=== PATIENT | female | born 1940 | race Caucasian/White ===

== ENCOUNTER 2018-06-02 19:50 | Inpatient (IN) | payer MEDICARE ==
[2018-06-02] MEDS ORDERED: methylPREDNISolone Sodium Succinate 125 MG/2 ML SDV IV ONE (20:06)
[2018-06-02] MEDS ORDERED: Albuterol/Ipratropium 3.0-0.5 MG/3 ML Neb Soln NEB ONE (20:06)
[2018-06-02] MEDS ORDERED: Albuterol 0.083% 2.5 MG/3 ML Neb Soln NEB ONE (20:16)
[2018-06-02] MEDS ORDERED: cefTRIAXone 2 GM Vial IVPUSH ONE (21:23)
--- NOTE | 2018-06-02 21:28 | EDM.PDOC ---
ED HPI GENERAL MEDICAL PROBLEM - General Chief Complaint: Respiratory Problem Time Seen by Provider: 06/02/18 19:50 Source of Information: Reports: Patient History Limitations: Reports: No Limitations - History of Present Illness INITIAL COMMENTS - FREE TEXT/NARRATIVE: Pt. presents to ER with complaints of cough and chest congestion for the past several days. Pt. is on home O2 and has a longstanding history of COPD. States that her shortness of breath is worst when lying flat. She states that she has not taken any nebulizer treatments today. She states that she has been turning up her O2 due to her increased dyspnea. She states that she has developed productive cough yesterday. Pt. was transported to ER via EMS. She was given a duoneb in the ambulance. She reports improvement of her dyspnea when she take a nebulizer. Denies any substernal chest pain. No jaw, arm, neck or back pain. She denies any increased peripheral edema. No nausea or vomiting. Onset: Today Onset Date: 05/30/18 Duration: Getting Worse Location: Reports: Chest Severity: Moderate Associated Symptoms: Reports: Cough, Fever/Chills, Shortness of Breath - Related Data Allergies Allergy/AdvReac Type Severity Reaction Status Date / Time No Known Allergies Allergy Verified 06/02/18 20:26 Home Meds: Home Meds Metoprolol Tartrate 25 mg DAILY 11/10/15 [History] Potassium Chloride [Klor-Con M10] 10 meq DAILY 11/10/15 [History] Simvastatin 40 mg DAILY 11/10/15 [History] amLODIPine [Norvasc] 5 mg DAILY 11/10/15 [History] Albuterol Sulfate 3 ml Q4H PRN 06/02/18 [History] Aspirin [Adult Aspirin] 81 mg DAILY 06/02/18 [History] Fluticasone/Salmeterol [Advair 250-50 Diskus] 1 puff BID 06/02/18 [History] Furosemide 20 mg DAILY 06/02/18 [History] Travoprost [Travatan Z] 1 drop EYEBOTH BEDTIME 06/02/18 [History] Past Medical History Cardiovascular History: Reports: Aneurysm, High Cholesterol, Hypertension, Stents Respiratory History: Reports: COPD Gastrointestinal History: Reports: Diverticulosis Genitourinary History: Reports: Other (See Below) Other Genitourinary History: stress incontinence Musculoskeletal History: Reports: RA - Past Surgical History HEENT Surgical History: Reports: Tonsillectomy Cardiovascular Surgical History: Reports: Aneurysm, Carotid Stents, Other (See Below) GI Surgical History: Reports: Colostomy Social & Family History - Tobacco Use Smoking Status *Q: Current Every Day Smoker Years of Tobacco use: 58 Packs/Tins Daily: 1 Used Tobacco, but Quit: No - Recreational Drug Use Recreational Drug Use: No ED ROS GENERAL - Review of Systems Review Of Systems: See Below Constitutional: Reports: No Symptoms HEENT: Reports: Rhinitis, Sinus Problem. Denies: Throat Pain, Throat Swelling Respiratory: Reports: Shortness of Breath, Wheezing, Cough, Sputum Cardiovascular: Reports: No Symptoms Endocrine: Reports: No Symptoms GI/Abdominal: Reports: No Symptoms : Reports: No Symptoms Musculoskeletal: Reports: No Symptoms Skin: Reports: No Symptoms Neurological: Reports: No Symptoms Psychiatric: Reports: No Symptoms Hematologic/Lymphatic: Reports: No Symptoms Immunologic: Reports: No Symptoms ED EXAM, GENERAL - Physical Exam Exam: See Below Exam Limited By: No Limitations General Appearance: Alert, WD/WN, No Apparent Distress Eye Exam: Bilateral Eye: EOMI, PERRL Nose: Normal Inspection, Normal Mucosa, No Blood Throat/Mouth: Normal Inspection, Normal Lips, Normal Teeth, Normal Gums, Normal Oropharynx, Normal Voice, No Airway Compromise Head: Atraumatic, Normocephalic Neck: Normal Inspection, Supple, Non-Tender, Full Range of Motion Respiratory/Chest: No Accessory Muscle Use, Respiratory Distress, Crackles, Rhonchi Cardiovascular: Normal Peripheral Pulses, Regular Rate, Rhythm, No Edema, No JVD Peripheral Pulses: 3+: Radial (L), Radial (R) GI/Abdominal: Normal Bowel Sounds, Soft, Non-Tender (Female) Exam: Deferred Rectal (Female) Exam: Deferred Back Exam: Normal Inspection, Full Range of Motion, NT Extremities: Normal Inspection, Normal Range of Motion, Non-Tender, Normal Capillary Refill, Pedal Edema (trace pedal edema) Neurological: Alert, Oriented, CN II-XII Intact, Normal Cognition, Normal Gait, Normal Reflexes, No Motor/Sensory Deficits Psychiatric: Normal Affect, Normal Mood Skin Exam: Warm, Dry, Intact, Normal Color, No Rash Lymphatic: No Adenopathy Course - Vital Signs Last Recorded V/S: Last Vital Signs Temp 37.3 C 06/02/18 19:50 Pulse 78 06/02/18 21:08 Resp 32 H 06/02/18 21:08 BP 131/51 L 06/02/18 19:50 Pulse Ox 87 L 06/02/18 21:08 - Orders/Labs/Meds Orders: Active Orders 24 hr Category Date Time Status Dietary Supplements [RC] 0730,1730 Care 06/02/18 21:24 Active EKG Documentation Completion [RC] STAT Care 06/02/18 20:07 Active Oxygen Therapy, ED [RC] ASDIRECTED Care 06/02/18 19:50 Active RT Aerosol Therapy [RC] ASDIRECTED Care 06/02/18 20:06 Active RT Aerosol Therapy [RC] ASDIRECTED Care 06/02/18 20:16 Active Chest 1V Frontal [CR] Stat Exams 06/02/18 20:07 Taken PE Chest [Ang Chest] [CT] Stat Exams 06/02/18 21:41 Ordered CULTURE BLOOD [BC] Stat Lab 06/02/18 20:57 Received CULTURE BLOOD [BC] Stat Lab 06/02/18 21:05 Received Sodium Chloride 0.9% [Saline Flush] Med 06/02/18 20:07 Active 10 ml FLUSH ASDIRECTED PRN Blood Culture x2 Reflex Set [OM.PC] Stat Oth 06/02/18 20:08 Ordered Peripheral IV Insertion Adult [OM.PC] Routine Oth 06/02/18 20:08 Ordered Medication Orders Sodium Chloride (Saline Flush) 10 ml FLUSH ASDIRECTED PRN PRN Reason: Keep Vein Open Labs: Laboratory Tests 06/02/18 06/02/18 06/02/18 Range/Units 20:57 20:57 20:57 WBC 8.7 (4.0-10.0) x10^3/uL RBC 4.62 (4.00-5.50) x10^6/uL Hgb 15.2 (12.0-16.0) g/dL Hct 47.4 H (33.0-47.0) % MCV 102.6 H (78.0-93.0) fL MCH 32.9 H (26.0-32.0) pg MCHC 32.1 (32.0-36.0) g/dL RDW Coeff of Georgina 15.1 H (10.0-15.0) % Plt Count 168 D (130-400) x10^3/uL Neut % (Auto) 72.0 (50.0-80.0) % Lymph % (Auto) 13.0 L (25.0-50.0) % Austin % (Auto) 12.3 H (2.0-11.0) % Eos % (Auto) 2.5 (0.0-4.0) % Baso % (Auto) 0.2 (0.2-1.2) % PT 10.9 (9.6-11.4) SEC INR 1.0 L (2.0-3.5) D-Dimer, Quantitative (<=0.58) mg/LFEU Sodium 140 (136-145) mmol/L Potassium 4.3 (3.5-5.1) mmol/L Chloride 102 (98-107) mmol/L Carbon Dioxide 28 (21-32) mmol/L Anion Gap 14.3 (10-20) mmol/L BUN 12 D (7-18) mg/dL Creatinine 0.9 (0.55-1.02) mg/dL Est Cr Clr Drug Dosing 43.99 mL/min Estimated GFR (MDRD) > 60 Glucose 130 H (74-106) mg/dL Lactic Acid (0.4-2.0) mmol/L Calcium 9.7 (8.5-10.1) mg/dL Corrected Calcium 10.10 (8.5-10.1) mg/dL Phosphorus 3.0 (2.6-4.7) mg/dL Magnesium 1.8 (1.8-2.4) mg/dL Total Bilirubin 0.9 (0.2-1.0) mg/dL AST 35 (15-37) U/L ALT 34 (14-59) U/L Alkaline Phosphatase 134 H (46-116) U/L Troponin I < 0.017 (<=0.056) ng/mL C-Reactive Protein 4.6 H (<=0.9) mg/dL NT-Pro-B Natriuret Pep 1197 H (<=450) pg/mL Total Protein 7.7 (6.4-8.2) g/dL Albumin 3.5 (3.4-5.0) g/dL Globulin 4.2 Albumin/Globulin Ratio 0.83 TSH, Ultra Sensitive 6.521 H (0.358-3.74) uIU/mL 06/02/18 06/02/18 Range/Units 20:57 20:57 WBC (4.0-10.0) x10^3/uL RBC (4.00-5.50) x10^6/uL Hgb (12.0-16.0) g/dL Hct (33.0-47.0) % MCV (78.0-93.0) fL MCH (26.0-32.0) pg MCHC (32.0-36.0) g/dL RDW Coeff of Georgina (10.0-15.0) % Plt Count (130-400) x10^3/uL Neut % (Auto) (50.0-80.0) % Lymph % (Auto) (25.0-50.0) % Austin % (Auto) (2.0-11.0) % Eos % (Auto) (0.0-4.0) % Baso % (Auto) (0.2-1.2) % PT (9.6-11.4) SEC INR (2.0-3.5) D-Dimer, Quantitative 0.89 H (<=0.58) mg/LFEU Sodium (136-145) mmol/L Potassium (3.5-5.1) mmol/L Chloride (98-107) mmol/L Carbon Dioxide (21-32) mmol/L Anion Gap (10-20) mmol/L BUN (7-18) mg/dL Creatinine (0.55-1.02) mg/dL Est Cr Clr Drug Dosing mL/min Estimated GFR (MDRD) Glucose (74-106) mg/dL Lactic Acid 1.6 (0.4-2.0) mmol/L Calcium (8.5-10.1) mg/dL Corrected Calcium (8.5-10.1) mg/dL Phosphorus (2.6-4.7) mg/dL Magnesium (1.8-2.4) mg/dL Total Bilirubin (0.2-1.0) mg/dL AST (15-37) U/L ALT (14-59) U/L Alkaline Phosphatase (46-116) U/L Troponin I (<=0.056) ng/mL C-Reactive Protein (<=0.9) mg/dL NT-Pro-B Natriuret Pep (<=450) pg/mL Total Protein (6.4-8.2) g/dL Albumin (3.4-5.0) g/dL Globulin Albumin/Globulin Ratio TSH, Ultra Sensitive (0.358-3.74) uIU/mL Meds: Medications Generic Name Dose Route Start Last Admin Trade Name Freq PRN Reason Stop Dose Admin Sodium Chloride 10 ml 06/02/18 20:07 Saline Flush FLUSH ASDIRECTED PRN Keep Vein Open Discontinued Medications Generic Name Dose Route Start Last Admin Trade Name Freq PRN Reason Stop Dose Admin Albuterol 2.5 mg 06/02/18 20:16 06/02/18 20:04 Proventil Neb Soln NEB 06/02/18 20:17 2.5 mg ONETIME ONE Administration Albuterol/Ipratropium 3 ml 06/02/18 20:06 06/02/18 20:50 Duoneb 3.0-0.5 Mg/3 Ml NEB 06/02/18 20:07 Not Given ONETIME ONE Ceftriaxone Sodium 2 gm 06/02/18 21:23 06/02/18 21:31 Rocephin IVPUSH 06/02/18 21:24 2 gm STAT ONE Administration Iopamidol 100 ml 06/02/18 22:06 06/02/18 22:33 Isovue-300 (61%) IVPUSH 06/02/18 22:07 Not Given ONETIME ONE Methylprednisolone Sodium Succinate 125 mg 06/02/18 20:06 06/02/18 20:10 Solu-Medrol IV 06/02/18 20:07 125 mg ONETIME ONE Administration - Radiology Interpretation Free Text/Narrative:: cardiomegaly, linear atelectasis R lung base. Departure - Departure Time of Disposition: 21:45 Disposition: Admitted As Inpatient 68 Clinical Impression: Shortness of breath CHF (congestive heart failure) Qualifiers: Qualified Code(s): I50.9 - Heart failure, unspecified Pneumonia Qualifiers: Pneumonia type: due to unspecified organism Laterality: right Lung location: lower lobe of lung Qualified Code(s): J18.9 - Pneumonia, unspecified organism COPD (chronic obstructive pulmonary disease) Qualifiers: COPD type: COPD with acute lower respiratory infection Qualified Code(s): J44.0 - Chronic obstructive pulmonary disease with acute lower respiratory infection - Discharge Information - Problem List Review Problem List Initiated/Reviewed/Updated: Yes - My Orders Last 24 Hours: My Active Orders 06/02/18 19:50 Oxygen Therapy, ED [RC] ASDIRECTED 06/02/18 20:06 RT Aerosol Therapy [RC] ASDIRECTED 06/02/18 20:07 EKG Documentation Completion [RC] STAT Chest 1V Frontal [CR] Stat Sodium Chloride 0.9% [Saline Flush] 10 ml FLUSH ASDIRECTED PRN 06/02/18 20:08 Blood Culture x2 Reflex Set [OM.PC] Stat Peripheral IV Insertion Adult [OM.PC] Routine 06/02/18 20:16 RT Aerosol Therapy [RC] ASDIRECTED 06/02/18 20:57 CULTURE BLOOD [BC] Stat 06/02/18 21:05 CULTURE BLOOD [BC] Stat 06/02/18 21:24 Dietary Supplements [RC] 0730,1730 06/02/18 21:41 PE Chest [Ang Chest] [CT] Stat - Assessment/Plan Admission H&P: Please use this note as an admission H&P Last 24 Hours: My Active Orders 06/02/18 19:50 Oxygen Therapy, ED [RC] ASDIRECTED 06/02/18 20:06 RT Aerosol Therapy [RC] ASDIRECTED 06/02/18 20:07 EKG Documentation Completion [RC] STAT Chest 1V Frontal [CR] Stat Sodium Chloride 0.9% [Saline Flush] 10 ml FLUSH ASDIRECTED PRN 06/02/18 20:08 Blood Culture x2 Reflex Set [OM.PC] Stat Peripheral IV Insertion Adult [OM.PC] Routine 06/02/18 20:16 RT Aerosol Therapy [RC] ASDIRECTED 06/02/18 20:57 CULTURE BLOOD [BC] Stat 06/02/18 21:05 CULTURE BLOOD [BC] Stat 06/02/18 21:24 Dietary Supplements [RC] 0730,1730 06/02/18 21:41 PE Chest [Ang Chest] [CT] Stat Plan: Pt. will be admitted acute. Her PCP is Stephanie Tamayo, so at this point, I will be listed at attending and admitting. Will talk to Jerel Gonzalez tomorrow-unclear who will be covering the patient after the weekend. She was unable to lay flat to CT angiogram of the chest as she continues to be quite short of breath. Will continue with duonebs and albuterol nebs. Will continue with IV solu medrol. O2 at 3L/min.
[2018-06-02 21:50] LABS: CHLORIDE,CL 102 mmol/L (98-107); SODIUM,NA 140 mmol/L (136-145)
[2018-06-02 22:01] LABS: ANION GAP 14.3 mmol/L (10-20)
[2018-06-02] MEDS ORDERED: Iopamidol 612 MG/ML 100 ML Bottle IVPUSH ONE (22:06)
[2018-06-02] MEDS: Nicotine 14 MG/24 Hr Patch TRDERM SCH (23:19)
[2018-06-02] MEDS: Albuterol/Ipratropium 3.0-0.5 MG/3 ML Neb Soln NEB SCH (23:24)
[2018-06-02] MEDS: Enoxaparin 40 MG/0.4 ML Syringe SUBCUT SCH (23:25)
[2018-06-02] MEDS: Azithromycin 250 MG Tab PO SCH (23:25)
[2018-06-03] MEDS ORDERED: methylPREDNISolone Sodium Succinate 125 MG/2 ML SDV IVPUSH SCH (03:00)
[2018-06-03] MEDS: Albuterol/Ipratropium 3.0-0.5 MG/3 ML Neb Soln NEB SCH ×6 (04:09→23:50)
[2018-06-03] MEDS: Fluticasone-Salmeterol 113-14 MCG Powder Inhalant INH SCH ×2 (08:17→21:43)
[2018-06-03] MEDS: Azithromycin 250 MG Tab PO SCH (08:18)
[2018-06-03] MEDS: Enoxaparin 40 MG/0.4 ML Syringe SUBCUT SCH (08:18)
[2018-06-03] MEDS: amLODIPine 5 MG Tab PO SCH (08:18)
[2018-06-03] MEDS: Potassium Chloride 10 MEQ Tab.ER PO SCH (08:18)
[2018-06-03] MEDS: Simvastatin 20 MG Tab PO SCH (08:19)
[2018-06-03] MEDS: Metoprolol Tartrate 25 MG Tab PO SCH (08:19)
[2018-06-03] MEDS: Aspirin 81 MG Tab.EC PO SCH (08:19)
[2018-06-03] MEDS: Furosemide 20 MG Tab PO SCH (08:19)
[2018-06-03 08:50] LABS: CHLORIDE,CL 100 mmol/L (98-107); SODIUM,NA 139 mmol/L (136-145)
[2018-06-03 08:53] LABS: ANION GAP 12.9 mmol/L (10-20)
--- NOTE | 2018-06-03 09:27 | PCM.PN ---
- General Info Date of Service: 06/03/18 Admission Dx/Problem (Free Text): Acute COPD exacerbation Subjective Update: Patient offers no specific complaints this morning. She feels her breathing is somewhat improved. She feels she can take in a bigger breath. She continues to expectorate green/yellow/brown sputum. She denies any chest pain. No abdominal concerns. No focal neurological deficits. She is ambulating with a walker. No issues with urination or BM's. Tolerating diet ok. Functional Status: Reports: Pain Controlled, Tolerating Diet, Ambulating, Urinating, Incentive Spirometry Pain Score: 0 - Review of Systems General: Denies: Fever, Chills Pulmonary: Reports: Shortness of Breath, Cough, Sputum Cardiovascular: Denies: Chest Pain, Palpitations Gastrointestinal: Denies: Abdominal Pain, Nausea, Vomiting Skin: Reports: No Symptoms Neurological: Reports: No Symptoms - Patient Data Vitals - Most Recent: Last Vital Signs Temp 37.1 C 06/03/18 06:00 Pulse 92 06/03/18 08:19 Resp 20 06/03/18 06:00 BP 142/47 H 06/03/18 08:19 Pulse Ox 94 L 06/03/18 07:03 Weight - Most Recent: 105.596 kg I&O - Last 24 Hours: Intake & Output 06/02/18 06/03/18 06/03/18 22:59 06:59 14:59 Intake Total 520 Output Total 200 650 Balance -200 -130 Lab Results Last 24 Hours: Laboratory Results - last 24 hr 06/02/18 06/02/18 06/02/18 Range/Units 20:57 20:57 20:57 WBC 8.7 (4.0-10.0) x10^3/uL RBC 4.62 (4.00-5.50) x10^6/uL Hgb 15.2 (12.0-16.0) g/dL Hct 47.4 H (33.0-47.0) % MCV 102.6 H (78.0-93.0) fL MCH 32.9 H (26.0-32.0) pg MCHC 32.1 (32.0-36.0) g/dL RDW Coeff of Georgina 15.1 H (10.0-15.0) % Plt Count 168 D (130-400) x10^3/uL Neut % (Auto) 72.0 (50.0-80.0) % Lymph % (Auto) 13.0 L (25.0-50.0) % Andrew % (Auto) 12.3 H (2.0-11.0) % Eos % (Auto) 2.5 (0.0-4.0) % Baso % (Auto) 0.2 (0.2-1.2) % PT 10.9 (9.6-11.4) SEC INR 1.0 L (2.0-3.5) D-Dimer, Quantitative (<=0.58) mg/LFEU Sodium 140 (136-145) mmol/L Potassium 4.3 (3.5-5.1) mmol/L Chloride 102 (98-107) mmol/L Carbon Dioxide 28 (21-32) mmol/L Anion Gap 14.3 (10-20) mmol/L BUN 12 D (7-18) mg/dL Creatinine 0.9 (0.55-1.02) mg/dL Est Cr Clr Drug Dosing 43.99 mL/min Estimated GFR (MDRD) > 60 Glucose 130 H (74-106) mg/dL Lactic Acid (0.4-2.0) mmol/L Calcium 9.7 (8.5-10.1) mg/dL Corrected Calcium 10.10 (8.5-10.1) mg/dL Phosphorus 3.0 (2.6-4.7) mg/dL Magnesium 1.8 (1.8-2.4) mg/dL Total Bilirubin 0.9 (0.2-1.0) mg/dL AST 35 (15-37) U/L ALT 34 (14-59) U/L Alkaline Phosphatase 134 H (46-116) U/L Troponin I < 0.017 (<=0.056) ng/mL C-Reactive Protein 4.6 H (<=0.9) mg/dL NT-Pro-B Natriuret Pep 1197 H (<=450) pg/mL Total Protein 7.7 (6.4-8.2) g/dL Albumin 3.5 (3.4-5.0) g/dL Globulin 4.2 Albumin/Globulin Ratio 0.83 TSH, Ultra Sensitive 6.521 H (0.358-3.74) uIU/mL 06/02/18 06/02/18 06/03/18 Range/Units 20:57 20:57 07:46 WBC 5.7 (4.0-10.0) x10^3/uL RBC 4.35 (4.00-5.50) x10^6/uL Hgb 14.5 (12.0-16.0) g/dL Hct 44.9 (33.0-47.0) % MCV 103.2 H (78.0-93.0) fL MCH 33.3 H (26.0-32.0) pg MCHC 32.3 (32.0-36.0) g/dL RDW Coeff of Georgina 15.1 H (10.0-15.0) % Plt Count 167 (130-400) x10^3/uL Neut % (Auto) (50.0-80.0) % Lymph % (Auto) (25.0-50.0) % Andrew % (Auto) (2.0-11.0) % Eos % (Auto) (0.0-4.0) % Baso % (Auto) (0.2-1.2) % PT (9.6-11.4) SEC INR (2.0-3.5) D-Dimer, Quantitative 0.89 H (<=0.58) mg/LFEU Sodium (136-145) mmol/L Potassium (3.5-5.1) mmol/L Chloride (98-107) mmol/L Carbon Dioxide (21-32) mmol/L Anion Gap (10-20) mmol/L BUN (7-18) mg/dL Creatinine (0.55-1.02) mg/dL Est Cr Clr Drug Dosing mL/min Estimated GFR (MDRD) Glucose (74-106) mg/dL Lactic Acid 1.6 (0.4-2.0) mmol/L Calcium (8.5-10.1) mg/dL Corrected Calcium (8.5-10.1) mg/dL Phosphorus (2.6-4.7) mg/dL Magnesium (1.8-2.4) mg/dL Total Bilirubin (0.2-1.0) mg/dL AST (15-37) U/L ALT (14-59) U/L Alkaline Phosphatase (46-116) U/L Troponin I (<=0.056) ng/mL C-Reactive Protein (<=0.9) mg/dL NT-Pro-B Natriuret Pep (<=450) pg/mL Total Protein (6.4-8.2) g/dL Albumin (3.4-5.0) g/dL Globulin Albumin/Globulin Ratio TSH, Ultra Sensitive (0.358-3.74) uIU/mL 06/03/18 Range/Units 07:46 WBC (4.0-10.0) x10^3/uL RBC (4.00-5.50) x10^6/uL Hgb (12.0-16.0) g/dL Hct (33.0-47.0) % MCV (78.0-93.0) fL MCH (26.0-32.0) pg MCHC (32.0-36.0) g/dL RDW Coeff of Georgina (10.0-15.0) % Plt Count (130-400) x10^3/uL Neut % (Auto) (50.0-80.0) % Lymph % (Auto) (25.0-50.0) % Andrew % (Auto) (2.0-11.0) % Eos % (Auto) (0.0-4.0) % Baso % (Auto) (0.2-1.2) % PT (9.6-11.4) SEC INR (2.0-3.5) D-Dimer, Quantitative (<=0.58) mg/LFEU Sodium 139 (136-145) mmol/L Potassium 3.9 (3.5-5.1) mmol/L Chloride 100 (98-107) mmol/L Carbon Dioxide 30 (21-32) mmol/L Anion Gap 12.9 (10-20) mmol/L BUN 15 (7-18) mg/dL Creatinine 0.9 (0.55-1.02) mg/dL Est Cr Clr Drug Dosing 43.99 mL/min Estimated GFR (MDRD) > 60 Glucose 201 H (74-106) mg/dL Lactic Acid (0.4-2.0) mmol/L Calcium 9.4 (8.5-10.1) mg/dL Corrected Calcium (8.5-10.1) mg/dL Phosphorus (2.6-4.7) mg/dL Magnesium 1.8 (1.8-2.4) mg/dL Total Bilirubin (0.2-1.0) mg/dL AST (15-37) U/L ALT (14-59) U/L Alkaline Phosphatase (46-116) U/L Troponin I (<=0.056) ng/mL C-Reactive Protein (<=0.9) mg/dL NT-Pro-B Natriuret Pep (<=450) pg/mL Total Protein (6.4-8.2) g/dL Albumin (3.4-5.0) g/dL Globulin Albumin/Globulin Ratio TSH, Ultra Sensitive (0.358-3.74) uIU/mL Duc Results Last 24 Hours: Microbiology 06/02/18 20:40 Influenza Type A Antigen Screen - Final Nasal, Unspecified NEGATIVE INFLUENZA A VIRUS AG Influenza Type B Antigen Screen - Final NEGATIVE INFLUENZA B VIRUS AG Med Orders - Current: Current Medications Albuterol/Ipratropium (Duoneb 3.0-0.5 Mg/3 Ml) 3 ml NEB Q4HRRT [facility] Last Admin: 06/03/18 07:02 Dose: 3 ml Amlodipine Besylate (Norvasc) 5 mg PO DAILY [facility] Last Admin: 06/03/18 08:18 Dose: 5 mg Aspirin (Halfprin) 81 mg PO DAILY [facility] Last Admin: 06/03/18 08:19 Dose: 81 mg Azithromycin (Zithromax) 500 mg PO DAILY [facility] Last Admin: 06/03/18 08:18 Dose: 500 mg Ceftriaxone Sodium (Rocephin) 1 gm IVPUSH BEDTIME [facility] Enoxaparin Sodium (Lovenox) 40 mg SUBCUT DAILY [facility] Last Admin: 06/03/18 08:18 Dose: 40 mg Furosemide (Lasix) 20 mg PO DAILY [facility] Last Admin: 06/03/18 08:19 Dose: 20 mg Latanoprost (Xalatan 0.005% Ophth Soln) 0 ml EYEBOTH BEDTIME [facility] Methylprednisolone Sodium Succinate (Solu-Medrol) 40 mg IVPUSH DAILY [facility] Metoprolol Tartrate (Lopressor) 25 mg PO DAILY [facility] Last Admin: 06/03/18 08:19 Dose: 25 mg Nicotine (Habitrol) 14 mg TRDERM DAILY [facility] Last Admin: 06/02/18 23:19 Dose: Not Given Potassium Chloride (Klor-Con 10) 10 meq PO DAILY [facility] Last Admin: 06/03/18 08:18 Dose: 10 meq Fluticasone/Salmeterol (Fluticasone-Salmeterol 113-14 Mcg Powder Inh) 1 puff INH BID [facility] Last Admin: 06/03/18 08:17 Dose: 1 dose Simvastatin (Zocor) 40 mg PO DAILY [facility] Last Admin: 06/03/18 08:19 Dose: 40 mg Sodium Chloride (Saline Flush) 10 ml FLUSH ASDIRECTED PRN PRN Reason: Keep Vein Open Discontinued Medications Albuterol (Proventil Neb Soln) 2.5 mg NEB ONETIME ONE Stop: 06/02/18 20:17 Last Admin: 06/02/18 20:04 Dose: 2.5 mg Albuterol/Ipratropium (Duoneb 3.0-0.5 Mg/3 Ml) 3 ml NEB ONETIME ONE Stop: 06/02/18 20:07 Last Admin: 06/02/18 20:50 Dose: Not Given Ceftriaxone Sodium (Rocephin) 2 gm IVPUSH STAT ONE Stop: 06/02/18 21:24 Last Admin: 06/02/18 21:31 Dose: 2 gm Ceftriaxone Sodium (Rocephin) 2 gm IVPUSH DAILY ONE Stop: 06/03/18 21:01 Iopamidol (Isovue-300 (61%)) 100 ml IVPUSH ONETIME ONE Stop: 06/02/18 22:07 Last Admin: 06/02/18 22:33 Dose: Not Given Methylprednisolone Sodium Succinate (Solu-Medrol) 125 mg IV ONETIME ONE Stop: 06/02/18 20:07 Last Admin: 06/02/18 20:10 Dose: 125 mg Methylprednisolone Sodium Succinate (Solu-Medrol) 125 mg IVPUSH Q12H [facility] Last Admin: 06/03/18 04:09 Dose: 125 mg - Exam Quality Assessment: Supplemental Oxygen, DVT Prophylaxis. No: Skin Breakdown General: Alert, Oriented, Cooperative, No Acute Distress Lungs: Decreased Breath Sounds, Crackles, Wheezing Cardiovascular: Regular Rate, Regular Rhythm GI/Abdominal Exam: Normal Bowel Sounds, Soft, Non-Tender Peripheral Pulses: 2+: Radial (L), Radial (R) Skin: Warm, Dry, Intact Neurological: No New Focal Deficit - Problem List Review Problem List Initiated/Reviewed/Updated: Yes - My Orders Last 24 Hours: My Active Orders 06/03/18 09:30 methylPREDNISolone Sod Succ [Solu-MEDROL] 40 mg IVPUSH DAILY 06/03/18 20:00 cefTRIAXone [Rocephin] 1 gm IVPUSH BEDTIME - Assessment Assessment:: Acute COPD exacerbation Mild exacerbation of CHF Dehydration - Plan Plan:: 78-year-old female patient with a past medical history of hypertension, high cholesterol, COPD, peripheral vascular disease, and smoking history is admitted to the acute care floor at [facility] for diagnosis of acute COPD exacerbation, mild CHF, and dehydration. I will decrease the patient Solu- Medrol to 40 mg daily. We will continue with diuretics. Per GOLD guidelines I will add Rocephin in combination with the Zithromax. Would encourage ambulation as much as possible today as she is able to tolerate. The patient continues to require oxygen over her baseline amount at home. Chest xray is negative for any pneumonia, sputum is 2/2 COPD flare. Continue with home Advair and DuoNebs PRN. Patient is a full code. Lovenox for DVT prophylaxis. Given elevated DDimer, will obtain PE protocol chest CT today. Recheck labs tomorrow morning. Continue with acute cares for now. NOTE: This patient was seen and examined by me as an [facility] provider
[2018-06-03] MEDS: methylPREDNISolone Sodium Succinate 40 MG/1 ML SDV IVPUSH SCH (11:22)
[2018-06-03] MEDS: Nicotine 14 MG/24 Hr Patch TRDERM SCH (11:23)
[2018-06-03] MEDS: Sodium Chloride 0.9% 10 ML Syringe FLUSH PRN (11:32)
[2018-06-03] MEDS ORDERED: Iopamidol 612 MG/ML 100 ML Bottle IVPUSH ONE (12:47)
[2018-06-03] MEDS ORDERED: cefTRIAXone 2 GM Vial IVPUSH ONE (21:00)
[2018-06-03] MEDS: cefTRIAXone 1 GM Vial IVPUSH SCH (21:45)
[2018-06-03] MEDS: Latanoprost 0.005% Ophth Soln 2.5 ML Bottle EYEBOTH SCH (21:57)
[2018-06-04] MEDS: Albuterol/Ipratropium 3.0-0.5 MG/3 ML Neb Soln NEB SCH ×6 (04:52→22:59)
[2018-06-04 07:20] LABS: ANION GAP 9.9 mmol/L (10-20); CHLORIDE,CL 102 mmol/L (98-107); SODIUM,NA 141 mmol/L (136-145)
--- NOTE | 2018-06-04 07:33 | PCM.PN ---
- General Info Date of Service: 06/04/18 Admission Dx/Problem (Free Text): Acute COPD exacerbation Subjective Update: Patient offers no specific complaints this morning. She feels her breathing staying about the same, she does not feel it is getting any worse. She feels she can take in a bigger breath. She continues to expectorate green/yellow/ brown sputum. She denies any chest pain. No abdominal concerns. No focal neurological deficits. She is ambulating with a walker. No issues with urination or BM's. Tolerating diet ok. Functional Status: Reports: Pain Controlled, Tolerating Diet, Ambulating, Urinating Pain Score: 0 - Review of Systems General: Denies: Fever, Chills Pulmonary: Reports: Shortness of Breath, Cough, Sputum Cardiovascular: Denies: Chest Pain, Palpitations Gastrointestinal: Denies: Abdominal Pain, Nausea, Vomiting Skin: Reports: No Symptoms Neurological: Reports: No Symptoms - Patient Data Vitals - Most Recent: Last Vital Signs Temp 36.2 C 06/04/18 05:23 Pulse 81 06/04/18 05:23 Resp 20 06/04/18 05:23 BP 146/67 H 06/04/18 05:23 Pulse Ox 93 L 06/04/18 01:30 Weight - Most Recent: 105.596 kg I&O - Last 24 Hours: Intake & Output 06/03/18 06/04/18 06/04/18 22:59 06:59 14:59 Intake Total 600 Output Total 800 200 Balance -800 400 Lab Results Last 24 Hours: Laboratory Results - last 24 hr 06/03/18 06/03/18 06/04/18 Range/Units 07:46 07:46 06:30 WBC 5.7 10.6 H (4.0-10.0) x10^3/uL RBC 4.35 4.46 (4.00-5.50) x10^6/uL Hgb 14.5 14.7 (12.0-16.0) g/dL Hct 44.9 45.9 (33.0-47.0) % MCV 103.2 H 102.9 H (78.0-93.0) fL MCH 33.3 H 33.0 H (26.0-32.0) pg MCHC 32.3 32.0 (32.0-36.0) g/dL RDW Coeff of Georgina 15.1 H 14.9 (10.0-15.0) % Plt Count 167 189 (130-400) x10^3/uL Neut % (Auto) 82.3 H (50.0-80.0) % Lymph % (Auto) 5.1 L (25.0-50.0) % [place] % (Auto) 12.5 H (2.0-11.0) % Eos % (Auto) 0.0 (0.0-4.0) % Baso % (Auto) 0.1 L (0.2-1.2) % Sodium 139 (136-145) mmol/L Potassium 3.9 (3.5-5.1) mmol/L Chloride 100 (98-107) mmol/L Carbon Dioxide 30 (21-32) mmol/L Anion Gap 12.9 (10-20) mmol/L BUN 15 (7-18) mg/dL Creatinine 0.9 (0.55-1.02) mg/dL Est Cr Clr Drug Dosing 43.99 mL/min Estimated GFR (MDRD) > 60 Glucose 201 H (74-106) mg/dL Calcium 9.4 (8.5-10.1) mg/dL Magnesium 1.8 (1.8-2.4) mg/dL 06/04/18 Range/Units 06:30 WBC (4.0-10.0) x10^3/uL RBC (4.00-5.50) x10^6/uL Hgb (12.0-16.0) g/dL Hct (33.0-47.0) % MCV (78.0-93.0) fL MCH (26.0-32.0) pg MCHC (32.0-36.0) g/dL RDW Coeff of Georgina (10.0-15.0) % Plt Count (130-400) x10^3/uL Neut % (Auto) (50.0-80.0) % Lymph % (Auto) (25.0-50.0) % [place] % (Auto) (2.0-11.0) % Eos % (Auto) (0.0-4.0) % Baso % (Auto) (0.2-1.2) % Sodium 141 (136-145) mmol/L Potassium 3.9 (3.5-5.1) mmol/L Chloride 102 (98-107) mmol/L Carbon Dioxide 33 H (21-32) mmol/L Anion Gap 9.9 L (10-20) mmol/L BUN 26 H (7-18) mg/dL Creatinine 0.7 (0.55-1.02) mg/dL Est Cr Clr Drug Dosing 56.56 mL/min Estimated GFR (MDRD) > 60 Glucose 132 H (74-106) mg/dL Calcium 9.6 (8.5-10.1) mg/dL Magnesium 1.9 (1.8-2.4) mg/dL Duc Results Last 24 Hours: Microbiology 06/02/18 21:05 Aerobic Blood Culture - Preliminary Blood - Venous - Lab Draw NO GROWTH AFTER 1 DAY Anaerobic Blood Culture - Preliminary NO GROWTH AFTER 1 DAY 06/02/18 20:57 Aerobic Blood Culture - Preliminary Blood - Venous NO GROWTH AFTER 1 DAY Anaerobic Blood Culture - Preliminary NO GROWTH AFTER 1 DAY Med Orders - Current: Current Medications Albuterol/Ipratropium (Duoneb 3.0-0.5 Mg/3 Ml) 3 ml NEB Q4HRRT [facility] Last Admin: 06/04/18 06:11 Dose: 3 ml Amlodipine Besylate (Norvasc) 5 mg PO DAILY [facility] Last Admin: 06/03/18 08:18 Dose: 5 mg Aspirin (Halfprin) 81 mg PO DAILY [facility] Last Admin: 06/03/18 08:19 Dose: 81 mg Azithromycin (Zithromax) 500 mg PO DAILY [facility] Last Admin: 06/03/18 08:18 Dose: 500 mg Ceftriaxone Sodium (Rocephin) 1 gm IVPUSH BEDTIME [facility] Last Admin: 06/03/18 21:45 Dose: 1 gm Enoxaparin Sodium (Lovenox) 40 mg SUBCUT DAILY [facility] Last Admin: 06/03/18 08:18 Dose: 40 mg Furosemide (Lasix) 20 mg PO DAILY [facility] Last Admin: 06/03/18 08:19 Dose: 20 mg Latanoprost (Xalatan 0.005% Ophth Soln) 0 ml EYEBOTH BEDTIME [facility] Last Admin: 06/03/18 21:57 Dose: 1 drop Methylprednisolone Sodium Succinate (Solu-Medrol) 40 mg IVPUSH DAILY [facility] Last Admin: 06/03/18 11:22 Dose: 40 mg Metoprolol Tartrate (Lopressor) 25 mg PO DAILY [facility] Last Admin: 06/03/18 08:19 Dose: 25 mg Nicotine (Habitrol) 14 mg TRDERM DAILY [facility] Last Admin: 06/03/18 11:23 Dose: Not Given Potassium Chloride (Klor-Con 10) 10 meq PO DAILY [facility] Last Admin: 06/03/18 08:18 Dose: 10 meq Fluticasone/Salmeterol (Fluticasone-Salmeterol 113-14 Mcg Powder Inh) 1 puff INH BID [facility] Last Admin: 06/03/18 21:43 Dose: 1 dose Simvastatin (Zocor) 40 mg PO DAILY [facility] Last Admin: 06/03/18 08:19 Dose: 40 mg Sodium Chloride (Saline Flush) 10 ml FLUSH ASDIRECTED PRN PRN Reason: Keep Vein Open Last Admin: 06/03/18 11:32 Dose: 10 ml Discontinued Medications Albuterol (Proventil Neb Soln) 2.5 mg NEB ONETIME ONE Stop: 06/02/18 20:17 Last Admin: 06/02/18 20:04 Dose: 2.5 mg Albuterol/Ipratropium (Duoneb 3.0-0.5 Mg/3 Ml) 3 ml NEB ONETIME ONE Stop: 06/02/18 20:07 Last Admin: 06/02/18 20:50 Dose: Not Given Ceftriaxone Sodium (Rocephin) 2 gm IVPUSH STAT ONE Stop: 06/02/18 21:24 Last Admin: 06/02/18 21:31 Dose: 2 gm Ceftriaxone Sodium (Rocephin) 2 gm IVPUSH DAILY ONE Stop: 06/03/18 21:01 Iopamidol (Isovue-300 (61%)) 100 ml IVPUSH ONETIME ONE Stop: 06/02/18 22:07 Last Admin: 06/02/18 22:33 Dose: Not Given Iopamidol (Isovue-300 (61%)) 100 ml IVPUSH ONETIME ONE Stop: 06/03/18 12:48 Last Admin: 06/03/18 14:38 Dose: Not Given Methylprednisolone Sodium Succinate (Solu-Medrol) 125 mg IV ONETIME ONE Stop: 06/02/18 20:07 Last Admin: 06/02/18 20:10 Dose: 125 mg Methylprednisolone Sodium Succinate (Solu-Medrol) 125 mg IVPUSH Q12H [facility] Last Admin: 06/03/18 04:09 Dose: 125 mg - Exam Quality Assessment: Supplemental Oxygen, DVT Prophylaxis. No: Skin Breakdown General: Alert, Oriented, Cooperative, No Acute Distress Lungs: Decreased Breath Sounds, Crackles, Wheezing Cardiovascular: Regular Rate, Regular Rhythm GI/Abdominal Exam: Normal Bowel Sounds, Soft, Non-Tender Peripheral Pulses: 2+: Radial (L), Radial (R) Skin: Warm, Dry, Intact Neurological: No New Focal Deficit - Problem List Review Problem List Initiated/Reviewed/Updated: Yes - My Orders Last 24 Hours: My Active Orders 06/03/18 09:30 methylPREDNISolone Sod Succ [Solu-MEDROL] 40 mg IVPUSH DAILY 06/03/18 20:00 cefTRIAXone [Rocephin] 1 gm IVPUSH BEDTIME 06/04/18 07:29 Chest 2V [CR] Routine 06/05/18 05:11 BASIC METABOLIC PANEL,BMP [CHEM] Routine CBC WITH AUTO DIFF [HEME] Routine - Assessment Assessment:: Acute COPD exacerbation Mild exacerbation of CHF Dehydration - Plan Plan:: Hospital day #3 for a 78-year-old female patient with a past medical history of hypertension, high cholesterol, COPD, peripheral vascular disease, and smoking history is admitted to the acute care floor at [facility] for diagnosis of acute COPD exacerbation, mild CHF, and dehydration. Continue Solu-Medrol to 40 mg daily. We will continue with diuretics. Per GOLD guidelines I will add Rocephin in combination with the Zithromax. Would encourage ambulation as much as possible today as she is able to tolerate. The patient continues to require oxygen over her baseline amount at home. Chest xray is negative for any pneumonia, will repeat CXR today. The sputum is 2/2 COPD flare. Continue with home Advair and DuoNebs PRN. Patient is a full code. Lovenox for DVT prophylaxis. Given elevated DDimer, will obtain PE protocol chest CT today. Recheck labs tomorrow morning. Continue with acute cares for now. NOTE: This patient was seen and examined by me as an [facility] provider
[2018-06-04] MEDS: amLODIPine 5 MG Tab PO SCH (07:47)
[2018-06-04] MEDS: Azithromycin 250 MG Tab PO SCH (07:47)
[2018-06-04] MEDS: methylPREDNISolone Sodium Succinate 40 MG/1 ML SDV IVPUSH SCH (07:47)
[2018-06-04] MEDS: Enoxaparin 40 MG/0.4 ML Syringe SUBCUT SCH (07:47)
[2018-06-04] MEDS: Aspirin 81 MG Tab.EC PO SCH (07:47)
[2018-06-04] MEDS: Simvastatin 20 MG Tab PO SCH (07:48)
[2018-06-04] MEDS: Furosemide 20 MG Tab PO SCH (07:48)
[2018-06-04] MEDS: Potassium Chloride 10 MEQ Tab.ER PO SCH (07:48)
[2018-06-04] MEDS: Fluticasone-Salmeterol 113-14 MCG Powder Inhalant INH SCH ×2 (07:48→20:55)
[2018-06-04] MEDS: Nicotine 14 MG/24 Hr Patch TRDERM SCH (07:48)
[2018-06-04] MEDS: Metoprolol Tartrate 25 MG Tab PO SCH (07:48)
[2018-06-04] MEDS: Sodium Chloride 0.9% 10 ML Syringe FLUSH PRN ×2 (07:49→11:44)
--- NOTE | 2018-06-04 07:55 | CR ---
[id number] RAD/RAD Chest PA or AP 1V EXAM: RAD Chest PA or AP 1V INDICATION: DYSPNEA COMPARISON: None. DISCUSSION: Cardiomegaly and central vascular congestion with bibasal interstitial edema and small effusions. Findings are most consistent with sequela of fluid retention the chest, possibly acute congestive heart failure exacerbation. Scarring and/or subsegmental atelectasis in both lung bases. Bilateral symmetric lung hyperinflation suggests underlying chronic obstructive pulmonary disease. chief information security officer projects over the mediastinum. No priors available for comparison or correlation. IMPRESSION: As above. Williams Fragoso MD 06/04/18 0754 Thank you for allowing us to participate in the care of your patient.
--- NOTE | 2018-06-04 09:58 | CR ---
[id number] RAD/RAD Chest PA And Lateral EXAM: RAD Chest PA And Lateral INDICATION: DYSPNEA, SHORTNESS OF BREATH, WHEEZING. COMPARISON: Radiograph from June 02, 2018. DISCUSSION: Cardiomegaly and central vascular congestion with bibasal pulmonary edema and effusions. Effusions have increased in size since the prior examination, consistent with progression of fluid retention. IMPRESSION: As above. Williams Fragoso MD 06/04/18 0957 Thank you for allowing us to participate in the care of your patient.
[2018-06-04] MEDS ORDERED: Furosemide 20 MG/2 ML VIAL IV ONE (11:26)
[2018-06-04] MEDS: Latanoprost 0.005% Ophth Soln 2.5 ML Bottle EYEBOTH SCH (19:42)
[2018-06-04] MEDS: cefTRIAXone 1 GM Vial IVPUSH SCH (19:48)
[2018-06-05] MEDS: Albuterol/Ipratropium 3.0-0.5 MG/3 ML Neb Soln NEB SCH ×6 (02:29→22:49)
[2018-06-05 07:06] LABS: CHLORIDE,CL 101 mmol/L (98-107); SODIUM,NA 140 mmol/L (136-145)
[2018-06-05 07:09] LABS: ANION GAP 7.6 mmol/L (10-20)
[2018-06-05] MEDS ORDERED: Furosemide 20 MG/2 ML VIAL IV ONE (07:50)
--- NOTE | 2018-06-05 07:53 | PCM.PN ---
- General Info Date of Service: 06/05/18 Admission Dx/Problem (Free Text): Acute COPD exacerbation Subjective Update: Patient states her breathing feels the same. She is not SOB at rest, but considerable dyspnea with ambulation. She states she is not coughing as much. No chest pain. She states shortly after she eats, she gets some abdominal discomfort that only lasts 15-20 minutes. Otherwise, she states everything else is ok. Functional Status: Reports: Pain Controlled, Tolerating Diet, Urinating Pain Score: 0 - Review of Systems General: Denies: Fever, Chills Pulmonary: Reports: Shortness of Breath, Cough, Sputum Cardiovascular: Denies: Chest Pain, Palpitations Gastrointestinal: Denies: Abdominal Pain, Nausea, Vomiting Skin: Reports: No Symptoms Neurological: Reports: No Symptoms - Patient Data Vitals - Most Recent: Last Vital Signs Temp 36.3 C 06/05/18 06:00 Pulse 94 06/05/18 06:00 Resp 22 H 06/05/18 06:00 BP 145/56 H 06/05/18 06:00 Pulse Ox 93 L 06/05/18 07:05 Weight - Most Recent: 105.596 kg I&O - Last 24 Hours: Intake & Output 06/04/18 06/05/18 06/05/18 22:59 06:59 14:59 Intake Total 480 Output Total 800 100 Balance -800 380 Lab Results Last 24 Hours: Laboratory Results - last 24 hr 06/04/18 06/05/18 06/05/18 Range/Units 06:30 06:35 06:35 WBC 10.4 H (4.0-10.0) x10^3/uL RBC 4.52 (4.00-5.50) x10^6/uL Hgb 14.9 (12.0-16.0) g/dL Hct 47.3 H (33.0-47.0) % MCV 104.6 H (78.0-93.0) fL MCH 33.0 H (26.0-32.0) pg MCHC 31.5 L (32.0-36.0) g/dL RDW Coeff of Georgina 15.1 H (10.0-15.0) % Plt Count 192 (130-400) x10^3/uL Neut % (Auto) 79.2 (50.0-80.0) % Lymph % (Auto) 6.5 L (25.0-50.0) % [place] % (Auto) 13.9 H (2.0-11.0) % Eos % (Auto) 0.2 (0.0-4.0) % Baso % (Auto) 0.2 (0.2-1.2) % Sodium 140 (136-145) mmol/L Potassium 3.6 (3.5-5.1) mmol/L Chloride 101 (98-107) mmol/L Carbon Dioxide 35 H (21-32) mmol/L Anion Gap 7.6 L (10-20) mmol/L BUN 32 H (7-18) mg/dL Creatinine 0.9 (0.55-1.02) mg/dL Est Cr Clr Drug Dosing 43.99 mL/min Estimated GFR (MDRD) > 60 Glucose 101 (74-106) mg/dL Calcium 9.7 (8.5-10.1) mg/dL NT-Pro-B Natriuret Pep 858 H (<=450) pg/mL Duc Results Last 24 Hours: Microbiology 06/02/18 21:05 Aerobic Blood Culture - Preliminary Blood - Venous - Lab Draw NO GROWTH AFTER 2 DAYS Anaerobic Blood Culture - Preliminary NO GROWTH AFTER 2 DAYS 06/02/18 20:57 Aerobic Blood Culture - Preliminary Blood - Venous NO GROWTH AFTER 2 DAYS Anaerobic Blood Culture - Preliminary NO GROWTH AFTER 2 DAYS Med Orders - Current: Current Medications Albuterol/Ipratropium (Duoneb 3.0-0.5 Mg/3 Ml) 3 ml NEB Q4HRRT [facility] Last Admin: 06/05/18 07:03 Dose: 3 ml Amlodipine Besylate (Norvasc) 5 mg PO DAILY [facility] Last Admin: 06/04/18 07:47 Dose: 5 mg Aspirin (Halfprin) 81 mg PO DAILY [facility] Last Admin: 06/04/18 07:47 Dose: 81 mg Azithromycin (Zithromax) 500 mg PO DAILY [facility] Last Admin: 06/04/18 07:47 Dose: 500 mg Ceftriaxone Sodium (Rocephin) 1 gm IVPUSH BEDTIME [facility] Last Admin: 06/04/18 19:48 Dose: 1 gm Enoxaparin Sodium (Lovenox) 40 mg SUBCUT DAILY [facility] Last Admin: 06/04/18 07:47 Dose: 40 mg Furosemide (Lasix) 20 mg PO DAILY [facility] Last Admin: 06/04/18 07:48 Dose: 20 mg Latanoprost (Xalatan 0.005% Ophth Soln) 0 ml EYEBOTH BEDTIME [facility] Last Admin: 06/04/18 19:42 Dose: 1 drop Methylprednisolone Sodium Succinate (Solu-Medrol) 40 mg IVPUSH DAILY [facility] Last Admin: 06/04/18 07:47 Dose: 40 mg Metoprolol Succinate (Toprol Xl) 50 mg PO DAILY [facility] Nicotine (Habitrol) 14 mg TRDERM DAILY [facility] Last Admin: 06/04/18 07:48 Dose: Not Given Potassium Chloride (Klor-Con 10) 10 meq PO DAILY [facility] Last Admin: 06/04/18 07:48 Dose: 10 meq Fluticasone/Salmeterol (Fluticasone-Salmeterol 113-14 Mcg Powder Inh) 1 puff INH BID [facility] Last Admin: 06/04/18 20:55 Dose: 1 dose Simvastatin (Zocor) 40 mg PO DAILY [facility] Last Admin: 06/04/18 07:48 Dose: 40 mg Sodium Chloride (Saline Flush) 10 ml FLUSH ASDIRECTED PRN PRN Reason: Keep Vein Open Last Admin: 06/04/18 11:44 Dose: 10 ml Discontinued Medications Albuterol (Proventil Neb Soln) 2.5 mg NEB ONETIME ONE Stop: 06/02/18 20:17 Last Admin: 06/02/18 20:04 Dose: 2.5 mg Albuterol/Ipratropium (Duoneb 3.0-0.5 Mg/3 Ml) 3 ml NEB ONETIME ONE Stop: 06/02/18 20:07 Last Admin: 06/02/18 20:50 Dose: Not Given Ceftriaxone Sodium (Rocephin) 2 gm IVPUSH STAT ONE Stop: 06/02/18 21:24 Last Admin: 06/02/18 21:31 Dose: 2 gm Ceftriaxone Sodium (Rocephin) 2 gm IVPUSH DAILY ONE Stop: 06/03/18 21:01 Furosemide (Lasix) 20 mg IV ONETIME ONE Stop: 06/04/18 11:27 Last Admin: 06/04/18 11:44 Dose: 20 mg Furosemide (Lasix) 20 mg IV ONETIME ONE Stop: 06/05/18 07:51 Iopamidol (Isovue-300 (61%)) 100 ml IVPUSH ONETIME ONE Stop: 06/02/18 22:07 Last Admin: 06/02/18 22:33 Dose: Not Given Iopamidol (Isovue-300 (61%)) 100 ml IVPUSH ONETIME ONE Stop: 06/03/18 12:48 Last Admin: 06/03/18 14:38 Dose: Not Given Methylprednisolone Sodium Succinate (Solu-Medrol) 125 mg IV ONETIME ONE Stop: 06/02/18 20:07 Last Admin: 06/02/18 20:10 Dose: 125 mg Methylprednisolone Sodium Succinate (Solu-Medrol) 125 mg IVPUSH Q12H [facility] Last Admin: 06/03/18 04:09 Dose: 125 mg Metoprolol Tartrate (Lopressor) 25 mg PO DAILY [facility] Last Admin: 06/04/18 07:48 Dose: 25 mg - Exam Quality Assessment: Supplemental Oxygen, DVT Prophylaxis. No: Skin Breakdown General: Alert, Oriented, Cooperative, No Acute Distress Lungs: Normal Respiratory Effort, Decreased Breath Sounds, Crackles Cardiovascular: Regular Rate, Regular Rhythm GI/Abdominal Exam: Normal Bowel Sounds, Soft, Non-Tender Peripheral Pulses: 2+: Radial (L), Radial (R) Skin: Warm, Dry, Intact Neurological: No New Focal Deficit - Problem List Review Problem List Initiated/Reviewed/Updated: Yes - My Orders Last 24 Hours: My Active Orders 06/05/18 07:45 Consult to Physical Therapy [PT Evaluation and Treatment] [CONS] Routine Respiratory Care Assess and Treatment [CONS] Routine 06/05/18 08:00 Metoprolol Succinate [Toprol XL] 50 mg PO DAILY 06/06/18 05:11 BASIC METABOLIC PANEL,BMP [CHEM] Routine CBC WITH AUTO DIFF [HEME] Routine - Assessment Assessment:: Acute COPD exacerbation Mild exacerbation of CHF Dehydration - Plan Plan:: Hospital day #4 for a 78-year-old female patient with a past medical history of hypertension, high cholesterol, COPD, peripheral vascular disease, and smoking history is admitted to the acute care floor at [facility] for diagnosis of acute COPD exacerbation, mild CHF, and dehydration. Will change Metoprolol to 50 mg daily. Consult Resp Care and Physical Therapy. Will give one extra dose of Lasix today, lungs still sound wet. Otherwise continue with same acute cares today. Will discuss with patient tomorrow regarding swing bed. Patient will need a full cardiac and resp workup outpatient when discharged. NOTE: This patient was seen and examined by me as an [facility] provider
[2018-06-05] MEDS: Metoprolol Succinate 50 MG Tab.ER PO SCH (08:05)
[2018-06-05] MEDS: Aspirin 81 MG Tab.EC PO SCH (08:05)
[2018-06-05] MEDS: Enoxaparin 40 MG/0.4 ML Syringe SUBCUT SCH (08:05)
[2018-06-05] MEDS: methylPREDNISolone Sodium Succinate 40 MG/1 ML SDV IVPUSH SCH (08:05)
[2018-06-05] MEDS: Simvastatin 20 MG Tab PO SCH (08:05)
[2018-06-05] MEDS: Fluticasone-Salmeterol 113-14 MCG Powder Inhalant INH SCH ×2 (08:06→19:50)
[2018-06-05] MEDS: Azithromycin 250 MG Tab PO SCH (08:06)
[2018-06-05] MEDS: Furosemide 20 MG Tab PO SCH (08:06)
[2018-06-05] MEDS: Sodium Chloride 0.9% 10 ML Syringe FLUSH PRN (08:06)
[2018-06-05] MEDS: amLODIPine 5 MG Tab PO SCH (08:06)
[2018-06-05] MEDS: Potassium Chloride 10 MEQ Tab.ER PO SCH (08:06)
[2018-06-05] MEDS: Nicotine 14 MG/24 Hr Patch TRDERM SCH (08:07)
[2018-06-05] MEDS: cefTRIAXone 1 GM Vial IVPUSH SCH (19:45)
[2018-06-05] MEDS: Latanoprost 0.005% Ophth Soln 2.5 ML Bottle EYEBOTH SCH (19:48)
[2018-06-06] MEDS: Albuterol/Ipratropium 3.0-0.5 MG/3 ML Neb Soln NEB SCH ×3 (03:21→10:50)
[2018-06-06 07:22] LABS: CHLORIDE,CL 101 mmol/L (98-107); SODIUM,NA 140 mmol/L (136-145)
[2018-06-06 07:23] LABS: ANION GAP 7.8 mmol/L (10-20)
[2018-06-06] MEDS: Fluticasone-Salmeterol 113-14 MCG Powder Inhalant INH SCH (07:56)
[2018-06-06] MEDS: Enoxaparin 40 MG/0.4 ML Syringe SUBCUT SCH (07:56)
[2018-06-06] MEDS: amLODIPine 5 MG Tab PO SCH (07:57)
[2018-06-06] MEDS: methylPREDNISolone Sodium Succinate 40 MG/1 ML SDV IVPUSH SCH (07:57)
[2018-06-06] MEDS: Nicotine 14 MG/24 Hr Patch TRDERM SCH (07:58)
[2018-06-06] MEDS: Aspirin 81 MG Tab.EC PO SCH (07:58)
[2018-06-06] MEDS: Metoprolol Succinate 50 MG Tab.ER PO SCH (07:58)
[2018-06-06] MEDS: Potassium Chloride 10 MEQ Tab.ER PO SCH (07:58)
[2018-06-06] MEDS: Azithromycin 250 MG Tab PO SCH (07:58)
[2018-06-06] MEDS: Furosemide 20 MG Tab PO SCH (07:58)
[2018-06-06] MEDS: Simvastatin 20 MG Tab PO SCH (07:58)
[2018-06-06] MEDS: Sodium Chloride 0.9% 10 ML Syringe FLUSH PRN (07:59)
[2018-06-06] MEDS ORDERED: Diazepam 2 MG Tab PO SCH (08:45)
--- NOTE | 2018-06-06 09:24 | PCM.DCSUM1 ---
Discharge Summary - Hospital Course HPI Initial Comments: Pt. presented to the ER at [facility] on 06/02/2018 for complaints of cough and chest congestion for the past several days. Pt. is on home O2 and has a longstanding history of COPD. States that her shortness of breath is worst when lying flat. She states that she has not taken any nebulizer treatments prior to presentation. She states that she has been turning up her O2 due to her increased dyspnea. She states that she has developed productive cough since last Monday. Pt. was transported to ER via EMS. She was given a duoneb in the ambulance. She reports improvement of her dyspnea when she take a nebulizer. Patient did not have any substernal chest pain. No jaw, arm, neck or back pain. She denied any increased peripheral edema. No nausea or vomiting. Diagnosis: Stroke: No Modified Wayne Scale: No Symptoms at All Modified Wayne Scale Score: 0 - Discharge Data Discharge Date: 06/06/18 Discharge Disposition: DC/Tfer W/I Hosp To [place] [id number] Condition: Good - Discharge Diagnosis/Problem(s) (1) Weakness SNOMED Code(s): 58957430 ICD Code: R53.1 - WEAKNESS Status: Acute Current Visit: Yes (2) Physical deconditioning SNOMED Code(s): 40026057499366 ICD Code: R53.81 - OTHER MALAISE Status: Acute Current Visit: Yes (3) CHF (congestive heart failure) SNOMED Code(s): 42598340 ICD Code: I50.9 - HEART FAILURE, UNSPECIFIED Status: Acute Priority: Medium Current Visit: Yes (4) COPD (chronic obstructive pulmonary disease) SNOMED Code(s): 35418135 ICD Code: J44.9 - CHRONIC OBSTRUCTIVE PULMONARY DISEASE, UNSPECIFIED Status : Chronic Priority: Medium Current Visit: Yes Qualifiers: COPD type: COPD with acute lower respiratory infection Qualified Code(s): J44.0 - Chronic obstructive pulmonary disease with acute lower respiratory infection (5) CAD (coronary artery disease) SNOMED Code(s): 36374121 ICD Code: I25.10 - ATHSCL HEART DISEASE OF [place] CORONARY ARTERY W/O ANG PCTRS Status: Chronic Priority: Medium Current Visit: No Qualifiers: Coronary Disease-Associated Artery/Lesion type: unspecified vessel or lesion type [place] vs. transplanted heart: [place] heart Associated angina: without angina Qualified Code(s): I25.10 - Atherosclerotic heart disease of [place] coronary artery without angina pectoris (6) Hypertension SNOMED Code(s): 79939968 ICD Code: I10 - ESSENTIAL (PRIMARY) HYPERTENSION Status: Chronic Priority : Medium Current Visit: No Qualifiers: Hypertension type: essential hypertension Qualified Code(s): I10 - Essential (primary) hypertension - Patient Summary/Data Operative Procedure(s) Performed: None Consults: Consultations 06/05/18 07:45 Consult to Physical Therapy [PT Evaluation and Treatment] [CONS] Routine Respiratory Care Assess and Treatment [CONS] Routine Labs Pending at D/C: None Planned Operative Procedure(s) after DC: None Hospital Course: Patient admitted with COPD exacerbation which has gradually improved. Patient had elevated blood pressure so Lopressor was increased to 50 mg daily. Patient did require IV Lasix for fluid retention. Lasix was increased to 40 mg daily. Weight has been stable. Patient continue with SOB, especially with activity. She feels weak and deconditioned. Patient did not have any chest pain. No focal neurological problems. Patient tolerated diet well. No issues with BM's or urination. Patient was started on Zithromax and Rocephin was added. Will stop both antibiotics after tomorrows dose. Patient needs extensive pulmonary work. Will continue this while on swing bed. - Patient Instructions Diet: Heart Healthy Diet, Low Sodium Activity: As Tolerated Showering/Bathing: May Shower - Discharge Plan *PRESCRIPTION DRUG MONITORING PROGRAM REVIEWED*: Not Applicable *COPY OF PRESCRIPTION DRUG MONITORING REPORT IN PATIENT SUPRIYA: Not Applicable Home Medications: Home Meds Potassium Chloride [Klor-Con M10] 10 meq PO DAILY 11/10/15 [History] Simvastatin 40 mg PO DAILY 11/10/15 [History] amLODIPine [Norvasc] 5 mg PO DAILY 11/10/15 [History] Aspirin [Adult Aspirin] 81 mg PO DAILY 06/02/18 [History] Fluticasone/Salmeterol [Advair 250-50 Diskus] 1 puff PO BID 06/02/18 [History] Travoprost [Travatan Z] 1 drop EYEBOTH BEDTIME 06/02/18 [History] Albuterol/Ipratropium [DuoNeb 3.0-0.5 MG/3 ML] 3 ml NEB Q4HRRT neb 06/06/18 [Rx ] Azithromycin [Zithromax] 500 mg PO DAILY tablet 06/06/18 [Rx] Furosemide [Lasix] 40 mg PO DAILY tablet 06/06/18 [Rx] Latanoprost [Xalatan 0.005% Ophth Soln] 0 ml EYEBOTH BEDTIME bottle 06/06/18 [ Rx] Metoprolol Succinate [Toprol XL 50mg] 50 mg PO DAILY tab.er 06/06/18 [Rx] Nicotine [Habitrol] 14 mg TRDERM DAILY patch 06/06/18 [Rx] Sodium Chloride 0.9% [Saline Flush] 10 ml FLUSH ASDIRECTED PRN syringe [Rx] cefTRIAXone [Rocephin] 1 gm IVPUSH BEDTIME vial 06/06/18 [Rx] diazePAM [Valium] 1 mg PO DAILY tablet 06/06/18 [Rx] methylPREDNISolone Sod Succ [Solu-MEDROL] 20 mg IVPUSH DAILY sdv 06/06/18 [Rx] Oxygen Therapy Mode: Nasal Cannula Oxygen Flow Rate (L/min): 2 Maintain SPO2% less than: 93 Maintain SpO2% greater than: 88 - Discharge Summary/Plan Comment DC Time >30 min.: Yes Discharge Summary/Plan Comment: Patient will be discharged to Swing Bed services today for weakness and deconditioning. Medication changes per admit MAR to SB. Anticipate <1 week on SB with physical therapy. Patient is a Code 1. Will stop Lovenox and continue with ASA. The H & P from acute admission on 06/02/2018 is current and can be used for the admission H & P for Swing Bed. - General Info Date of Service: 06/06/18 Admission Dx/Problem (Free Text: Acute COPD exacerbation Subjective Update: Patient states her breathing feels the same. She is not SOB at rest, but considerable dyspnea with ambulation. She states she is not coughing as much. No chest pain. She states shortly after she eats, she gets some abdominal discomfort that only lasts 15-20 minutes. Otherwise, she states everything else is ok. She is feeling weaker today since she has not been out of bed due to breathing issues. Functional Status: Reports: Pain Controlled, Tolerating Diet, Ambulating, Urinating Numeric/FACES Score: 0 - Review of Systems General: Reports: Weakness, Malaise. Denies: Fever, Chills Pulmonary: Reports: Shortness of Breath. Denies: Cough, Sputum Cardiovascular: Reports: Dyspnea on Exertion. Denies: Chest Pain, Palpitations Gastrointestinal: Denies: Abdominal Pain, Nausea, Vomiting Skin: Reports: No Symptoms Neurological: Reports: No Symptoms - Patient Data Vitals - Most Recent: Last Vital Signs Temp 36.3 C 06/06/18 06:00 Pulse 83 06/06/18 07:58 Resp 20 06/06/18 06:00 BP 124/65 06/06/18 07:58 Pulse Ox 91 L 06/06/18 07:05 Weight - Most Recent: 105.596 kg I&O - Last 24 hours: Intake & Output 06/05/18 06/06/18 06/06/18 22:59 06:59 14:59 Intake Total 120 480 420 Balance 120 480 420 Lab Results - Last 24 hrs: Laboratory Results - last 24 hr 06/06/18 06/06/18 Range/Units 06:26 06:26 WBC 7.6 (4.0-10.0) x10^3/uL RBC 4.40 (4.00-5.50) x10^6/uL Hgb 14.5 (12.0-16.0) g/dL Hct 45.8 (33.0-47.0) % MCV 104.1 H (78.0-93.0) fL MCH 33.0 H (26.0-32.0) pg MCHC 31.7 L (32.0-36.0) g/dL RDW Coeff of Georgina 14.9 (10.0-15.0) % Plt Count 188 (130-400) x10^3/uL Neut % (Auto) 67.2 (50.0-80.0) % Lymph % (Auto) 13.0 L (25.0-50.0) % [place] % (Auto) 19.2 H (2.0-11.0) % Eos % (Auto) 0.5 (0.0-4.0) % Baso % (Auto) 0.1 L (0.2-1.2) % Sodium 140 (136-145) mmol/L Potassium 3.8 (3.5-5.1) mmol/L Chloride 101 (98-107) mmol/L Carbon Dioxide 35 H (21-32) mmol/L Anion Gap 7.8 L (10-20) mmol/L BUN 29 H (7-18) mg/dL Creatinine 0.8 (0.55-1.02) mg/dL Est Cr Clr Drug Dosing 49.49 mL/min Estimated GFR (MDRD) > 60 Glucose 97 (74-106) mg/dL Calcium 9.6 (8.5-10.1) mg/dL BIBI Results - Last 24 hrs: Microbiology 06/02/18 21:05 Aerobic Blood Culture - Preliminary Blood - Venous - Lab Draw NO GROWTH AFTER 3 DAYS Anaerobic Blood Culture - Preliminary NO GROWTH AFTER 3 DAYS 06/02/18 20:57 Aerobic Blood Culture - Preliminary Blood - Venous NO GROWTH AFTER 3 DAYS Anaerobic Blood Culture - Preliminary NO GROWTH AFTER 3 DAYS Med Orders - Current: Current Medications Albuterol/Ipratropium (Duoneb 3.0-0.5 Mg/3 Ml) 3 ml NEB Q4HRRT COUNT INCLUDES THE [facility] Last Admin: 06/06/18 07:03 Dose: 3 ml Amlodipine Besylate (Norvasc) 5 mg PO DAILY COUNT INCLUDES THE [facility] Last Admin: 06/06/18 07:57 Dose: 5 mg Aspirin (Halfprin) 81 mg PO DAILY COUNT INCLUDES THE [facility] Last Admin: 06/06/18 07:58 Dose: 81 mg Azithromycin (Zithromax) 500 mg PO DAILY COUNT INCLUDES [facility] Last Admin: 06/06/18 07:58 Dose: 500 mg Ceftriaxone Sodium (Rocephin) 1 gm IVPUSH BEDTIME COUNT INCLUDES THE [facility] Last Admin: 06/05/18 19:45 Dose: 1 gm Diazepam (Valium) 1 mg PO DAILY COUNT INCLUDES THE [facility] Enoxaparin Sodium (Lovenox) 40 mg SUBCUT DAILY COUNT INCLUDES THE [facility] Last Admin: 06/06/18 07:56 Dose: 40 mg Furosemide (Lasix) 40 mg PO DAILY COUNT INCLUDES THE [facility] Latanoprost (Xalatan 0.005% Ophth Soln) 0 ml EYEBOTH BEDTIME COUNT INCLUDES THE [facility] Last Admin: 06/05/18 19:48 Dose: 1 drop Methylprednisolone Sodium Succinate (Solu-Medrol) 20 mg IVPUSH DAILY COUNT INCLUDES THE [facility] Metoprolol Succinate (Toprol Xl) 50 mg PO DAILY COUNT INCLUDES THE [facility] Last Admin: 06/06/18 07:58 Dose: 50 mg Nicotine (Habitrol) 14 mg TRDERM DAILY COUNT INCLUDES THE [facility] Last Admin: 06/06/18 07:58 Dose: Not Given Potassium Chloride (Klor-Con 10) 10 meq PO DAILY COUNT INCLUDES THE [facility] Last Admin: 06/06/18 07:58 Dose: 10 meq Fluticasone/Salmeterol (Fluticasone-Salmeterol 113-14 Mcg Powder Inh) 1 puff INH BID COUNT INCLUDES THE [facility] Last Admin: 06/06/18 07:56 Dose: 1 dose Simvastatin (Zocor) 40 mg PO DAILY COUNT INCLUDES THE [facility] Last Admin: 06/06/18 07:58 Dose: 40 mg Sodium Chloride (Saline Flush) 10 ml FLUSH ASDIRECTED PRN PRN Reason: Keep Vein Open Last Admin: 06/06/18 07:59 Dose: 10 ml Discontinued Medications Albuterol (Proventil Neb Soln) 2.5 mg NEB ONETIME ONE Stop: 06/02/18 20:17 Last Admin: 06/02/18 20:04 Dose: 2.5 mg Albuterol/Ipratropium (Duoneb 3.0-0.5 Mg/3 Ml) 3 ml NEB ONETIME ONE Stop: 06/02/18 20:07 Last Admin: 06/02/18 20:50 Dose: Not Given Ceftriaxone Sodium (Rocephin) 2 gm IVPUSH STAT ONE Stop: 06/02/18 21:24 Last Admin: 06/02/18 21:31 Dose: 2 gm Ceftriaxone Sodium (Rocephin) 2 gm IVPUSH DAILY ONE Stop: 06/03/18 21:01 Furosemide (Lasix) 20 mg PO DAILY COUNT INCLUDES THE [facility] Last Admin: 06/06/18 07:58 Dose: 20 mg Furosemide (Lasix) 20 mg IV ONETIME ONE Stop: 06/04/18 11:27 Last Admin: 06/04/18 11:44 Dose: 20 mg Furosemide (Lasix) 20 mg IV ONETIME ONE Stop: 06/05/18 07:51 Last Admin: 06/05/18 08:05 Dose: 20 mg Iopamidol (Isovue-300 (61%)) 100 ml IVPUSH ONETIME ONE Stop: 06/02/18 22:07 Last Admin: 06/02/18 22:33 Dose: Not Given Iopamidol (Isovue-300 (61%)) 100 ml IVPUSH ONETIME ONE Stop: 06/03/18 12:48 Last Admin: 06/03/18 14:38 Dose: Not Given Methylprednisolone Sodium Succinate (Solu-Medrol) 125 mg IV ONETIME ONE Stop: 06/02/18 20:07 Last Admin: 06/02/18 20:10 Dose: 125 mg Methylprednisolone Sodium Succinate (Solu-Medrol) 125 mg IVPUSH Q12H COUNT INCLUDES THE [facility] Last Admin: 06/03/18 04:09 Dose: 125 mg Methylprednisolone Sodium Succinate (Solu-Medrol) 40 mg IVPUSH DAILY COUNT INCLUDES THE [facility] Last Admin: 06/06/18 07:57 Dose: 40 mg Metoprolol Tartrate (Lopressor) 25 mg PO DAILY COUNT INCLUDES THE [facility] Last Admin: 06/04/18 07:48 Dose: 25 mg - Exam Quality Assessment: Reports: Supplemental Oxygen, DVT Prophylaxis. Denies: Skin Breakdown General: Reports: Alert, Oriented, Cooperative, No Acute Distress Lungs: Reports: Normal Respiratory Effort, Decreased Breath Sounds, Wheezing Cardiovascular: Reports: Regular Rate, Regular Rhythm GI/Abdominal Exam: Normal Bowel Sounds, Soft, Non-Tender Skin: Reports: Warm, Dry, Intact Neurological: Reports: No New Focal Deficit *Q Meaningful Use (DIS) - VTE *Q VTE Mechanical Contraindications *Q: At Risk for Falls
[2018-06-06 10:01] VITALS: BP 149/58
[2018-06-07] MEDS ORDERED: Furosemide 40 MG Tab PO SCH (08:00)
[2018-06-07] MEDS ORDERED: methylPREDNISolone Sodium Succinate 40 MG/1 ML SDV IVPUSH SCH (08:00)
== END 2018-06-06 11:37 | disposition swing bed (61) | DRG 292 ==
LOC: VM.ED 19:50 → VM.MS 22:23 → UNDOADMIN 22:23 → UNDODISIN 06-06 11:37
PROVIDERS: ADMIT Physician Assistant; ATTEND Nurse Practitioner Family
DX: I11.0 Hypertensive heart disease with heart failure (principal); J44.1 Chronic obstructive pulmonary disease with (acute) exacerbation; I25.10 Atherosclerotic heart disease of native coronary artery without angina pectoris; I50.33 Acute on chronic diastolic (congestive) heart failure; E78.00 Pure hypercholesterolemia, unspecified; N39.3 Stress incontinence (female) (male); M06.9 Rheumatoid arthritis, unspecified; F17.210 Nicotine dependence, cigarettes, uncomplicated; E86.0 Dehydration; I73.9 Peripheral vascular disease, unspecified; Z79.82 Long term (current) use of aspirin; Z79.899 Other long term (current) drug therapy; Z95.5 Presence of coronary angioplasty implant and graft; Z98.890 Other specified postprocedural states; Z99.81 Dependence on supplemental oxygen
CPT/HCPCS: 36415; 71045; 71046; 80048; 80053; 83605; 83735; 83880; 84100; 84443; 84484; 85025; 85027; 85379; 85610; 86140; 87040; 87804; 87804-59; 93005; 94640; 94760; 96374; 96375; 97116-GP; 97161-GP; 99285; A9270-GY; J0696; J1650; J1940; J2920; J2930; J7613-GY; J7620-GY

== ENCOUNTER 2018-06-06 11:16 | Inpatient (IN) | payer MEDICARE ==
[2018-06-06] MEDS ORDERED: Sodium Chloride 0.9% 10 ML Syringe FLUSH PRN ×2 (11:19)
[2018-06-06] MEDS: Albuterol/Ipratropium 3.0-0.5 MG/3 ML Neb Soln NEB SCH ×3 (14:44→23:45)
[2018-06-06] MEDS: Fluticasone-Salmeterol 113-14 MCG Powder Inhalant INH SCH (19:58)
[2018-06-06] MEDS: Latanoprost 0.005% Ophth Soln 2.5 ML Bottle EYEBOTH SCH (19:58)
[2018-06-06] MEDS ORDERED: cefTRIAXone 1 GM Vial IVPUSH SCH (20:00)
[2018-06-07] MEDS: Albuterol/Ipratropium 3.0-0.5 MG/3 ML Neb Soln NEB SCH ×6 (02:55→23:30)
[2018-06-07] MEDS ORDERED: Azithromycin 250 MG Tab PO SCH (08:00)
[2018-06-07] MEDS: Metoprolol Succinate 50 MG Tab.ER PO SCH (08:26)
[2018-06-07] MEDS: amLODIPine 5 MG Tab PO SCH (08:27)
[2018-06-07] MEDS: Diazepam 2 MG Tab PO SCH (08:28)
[2018-06-07] MEDS: Potassium Chloride 10 MEQ Tab.ER PO SCH (08:28)
[2018-06-07] MEDS: Simvastatin 40 MG Tab PO SCH (08:29)
[2018-06-07] MEDS: methylPREDNISolone Sodium Succinate 40 MG/1 ML SDV IVPUSH SCH (08:29)
[2018-06-07] MEDS: Furosemide 40 MG Tab PO SCH (08:29)
[2018-06-07] MEDS: Aspirin 81 MG Tab.EC PO SCH (08:30)
[2018-06-07] MEDS: Nicotine 14 MG/24 Hr Patch TRDERM SCH (08:30)
[2018-06-07] MEDS: Fluticasone-Salmeterol 113-14 MCG Powder Inhalant INH SCH ×2 (08:31→20:22)
[2018-06-07] MEDS: Lactobacillus Rhamnosus GG (Probiotic) Cap PO SCH ×2 (17:55→20:21)
[2018-06-07] MEDS: Latanoprost 0.005% Ophth Soln 2.5 ML Bottle EYEBOTH SCH (20:22)
[2018-06-08] MEDS: Albuterol/Ipratropium 3.0-0.5 MG/3 ML Neb Soln NEB SCH ×4 (03:08→14:14)
[2018-06-08 06:17] VITALS: BP 131/48
[2018-06-08] MEDS: Nicotine 14 MG/24 Hr Patch TRDERM SCH (08:05)
[2018-06-08] MEDS: Potassium Chloride 10 MEQ Tab.ER PO SCH (08:05)
[2018-06-08] MEDS: Aspirin 81 MG Tab.EC PO SCH (08:06)
[2018-06-08] MEDS: Simvastatin 40 MG Tab PO SCH (08:06)
[2018-06-08] MEDS: amLODIPine 5 MG Tab PO SCH (08:06)
[2018-06-08] MEDS: Furosemide 40 MG Tab PO SCH (08:06)
[2018-06-08] MEDS: Diazepam 2 MG Tab PO SCH (08:06)
[2018-06-08] MEDS: Lactobacillus Rhamnosus GG (Probiotic) Cap PO SCH (08:06)
[2018-06-08] MEDS: Fluticasone-Salmeterol 113-14 MCG Powder Inhalant INH SCH (08:08)
[2018-06-08] MEDS: methylPREDNISolone Sodium Succinate 40 MG/1 ML SDV IVPUSH SCH (08:10)
[2018-06-08] MEDS: Metoprolol Succinate 50 MG Tab.ER PO SCH (08:14)
--- NOTE | 2018-06-08 11:28 | PCM.DCSUM1 ---
Discharge Summary - Hospital Course HPI Initial Comments: Patient was admitted to acute care on Sunday, June 03, 2018 for Pneumonia. This was able to be ruled out but patient also had concurrent COPD exacerbation. Patient was extremely SOB with audible wheezing on presentation. She was considerably weak and fatigued. Patient did well during her acute care stay but was transitioned to Swing Bed due to her weakness and deconditioning. Therapy recommended for patient to stay another 3 days. She has been progressing well and therapy felt she would be ok to be discharged today. Diagnosis: Stroke: No Modified [place] Scale: No Symptoms at All Modified [place] Scale Score: 0 - Discharge Data Discharge Date: 06/08/18 Discharge Disposition: Home, Self-Care 01 Condition: Fair - Discharge Diagnosis/Problem(s) (1) CHF (congestive heart failure) SNOMED Code(s): 45225167 ICD Code: I50.9 - HEART FAILURE, UNSPECIFIED Status: Acute Priority: Medium Current Visit: No Qualifiers: Heart failure chronicity: unspecified (2) Physical deconditioning SNOMED Code(s): 61238026597391 ICD Code: R53.81 - OTHER [place] Status: Acute Priority: Medium Current Visit: Yes (3) Weakness SNOMED Code(s): 60547584 ICD Code: R53.1 - WEAKNESS Status: Acute Priority: Medium Current Visit : Yes (4) COPD (chronic obstructive pulmonary disease) SNOMED Code(s): 26800059 ICD Code: J44.9 - CHRONIC OBSTRUCTIVE PULMONARY DISEASE, UNSPECIFIED Status : Chronic Priority: Medium Current Visit: Yes Qualifiers: Chronic bronchitis type: unspecified - Patient Summary/Data Operative Procedure(s) Performed: None Consults: Consultations 06/06/18 11:19 Consult to Physical Therapy [PT Evaluation and Treatment] [CONS] Routine Respiratory Care Assess and Treatment [CONS] Routine Labs Pending at D/C: None Recommended Follow-up Testing/Procedures: Pulmonary and Cardiology consults Planned Operative Procedure(s) after DC: None Hospital Course: Patient progressed ok during her acute stay. She was transitioned to Swing Bed due to considerable weakness and deconditioning. Therapy recommended continued treatment but patient is very adamant today to be discharged. Therapy did agree , however they felt she could use a few more days. Patient still has ins/exp wheezing on discharge. She is still somewhat SOB with a dry hacking cough. This seems to be her baseline. Patient would benefit from 3-4 more days of swing bed , but again, very adamant to go home today. No issues with BM's or urination. Tolerated diet ok. Patient refused showers/bathing. Lasix was increased to 40 mg daily due to fluid retention/pulmonary vascular congestion. - Patient Instructions Diet: Low Sodium Fluid Restriction: 1000 mL Activity: Rest and Relax Today Driving: Do Not Drive Showering/Bathing: May Shower Other/Special Instructions: Worsening shortness of breath, fluid retention - Discharge Plan *PRESCRIPTION DRUG MONITORING PROGRAM REVIEWED*: Not Applicable *COPY OF PRESCRIPTION DRUG MONITORING REPORT IN PATIENT SUPRIYA: Not Applicable Home Medications: Home Meds Potassium Chloride [Klor-Con M10] 10 meq PO DAILY 11/10/15 [History] Simvastatin 40 mg PO DAILY 11/10/15 [History] amLODIPine [Norvasc] 5 mg PO DAILY 11/10/15 [History] Aspirin [Adult Aspirin] 81 mg PO DAILY 06/02/18 [History] Fluticasone/Salmeterol [Advair 250-50 Diskus] 1 puff PO BID 06/02/18 [History] Furosemide [Lasix] 40 mg PO DAILY tablet 06/06/18 [Rx] Latanoprost [Xalatan 0.005% Ophth Soln] 0 ml EYEBOTH BEDTIME bottle 06/06/18 [ Rx] Metoprolol Succinate [Toprol XL 50mg] 50 mg PO DAILY tab.er 06/06/18 [Rx] diazePAM [Valium] 1 mg PO DAILY tablet 06/06/18 [Rx] Furosemide [Lasix] 40 mg PO DAILY tablet 06/08/18 [Rx] Latanoprost [Xalatan 0.005% Ophth Soln] 0 ml EYEBOTH BEDTIME bottle 06/08/18 [ Rx] diazePAM [Valium] 1 mg PO DAILY tablet 06/08/18 [Rx] Oxygen Therapy Mode: Nasal Cannula Patient Handouts: Home Oxygen Use, Adult, Chronic Obstructive Pulmonary Disease , How to Use a Nebulizer, Adult Referrals: Tessa Tamayo, DESK ATTENDANT [Primary Care Provider] - - Discharge Summary/Plan Comment DC Time >30 min.: No Discharge Summary/Plan Comment: Patient will be discharge home today. Continue with Valium for Anxiety 2/2 to SOB. Stop abx therapy. Lasix increased to 40 mg daily. Would like the patient on a fluid restriction. NEEDS to stop smoking. Continue all home medications the same. Question whether Amlodipine is causing some of the fluid retention. Recommend [facility] referral. Also needs Pulmonary referral. Patient will f/u with PCP this Monday for a recheck. Will start 5 day coarse of Prednisone for home. - General Info Date of Service: 06/08/18 Admission Dx/Problem (Free Text: COPD exacerbation CHF Weakness Deconditioning Subjective Update: Patient offers no specific complaints at the time of this discharge. She denies any worsening SOB or chest pain. No focal neurological problems. GI ok. She states she feels she is at her baseline and is ADAMANTLY requesting to go home. will be able to assist patient after discharge. Functional Status: Reports: Pain Controlled, Tolerating Diet, Ambulating, Urinating - Review of Systems General: Reports: Weakness. Denies: Fever, Chills Pulmonary: Reports: Shortness of Breath, Cough. Denies: Sputum Cardiovascular: Denies: Chest Pain, Palpitations Gastrointestinal: Denies: Abdominal Pain, Nausea, Vomiting Skin: Reports: No Symptoms Neurological: Reports: No Symptoms - Patient Data Vitals - Most Recent: Last Vital Signs Temp 36.6 C 06/08/18 06:00 Pulse 64 06/08/18 08:14 Resp 20 06/08/18 06:00 BP 131/48 L 06/08/18 08:14 Pulse Ox 95 06/08/18 06:00 Weight - Most Recent: 106.141 kg I&O - Last 24 hours: Intake & Output 06/07/18 06/08/18 06/08/18 22:59 06:59 14:59 Intake Total 200 180 Balance 200 180 Med Orders - Current: Current Medications Albuterol/Ipratropium (Duoneb 3.0-0.5 Mg/3 Ml) 3 ml NEB Q4HRRT [facility] Last Admin: 06/08/18 11:14 Dose: 3 ml Amlodipine Besylate (Norvasc) 5 mg PO DAILY [facility] Last Admin: 06/08/18 08:06 Dose: 5 mg Aspirin (Halfprin) 81 mg PO DAILY [facility] Last Admin: 06/08/18 08:06 Dose: 81 mg Diazepam (Valium) 1 mg PO DAILY [facility] Last Admin: 06/08/18 08:06 Dose: 1 mg Furosemide (Lasix) 40 mg PO DAILY [facility] Last Admin: 06/08/18 08:06 Dose: 40 mg Lactobacillus Rhamnosus (Culturelle) 1 cap PO BID [facility] Stop: 06/20/18 20:01 Last Admin: 06/08/18 08:06 Dose: 1 cap Latanoprost (Xalatan 0.005% Ophth Soln) 0 ml EYEBOTH BEDTIME [facility] Last Admin: 06/07/18 20:22 Dose: 1 drp Methylprednisolone Sodium Succinate (Solu-Medrol) 20 mg IVPUSH DAILY [facility] Last Admin: 06/08/18 08:10 Dose: 20 mg Metoprolol Succinate (Toprol Xl) 50 mg PO DAILY [facility] Last Admin: 06/08/18 08:14 Dose: 50 mg Nicotine (Habitrol) 14 mg TRDERM DAILY [facility] Last Admin: 06/08/18 08:05 Dose: Not Given Potassium Chloride (Klor-Con 10) 10 meq PO DAILY [facility] Last Admin: 06/08/18 08:05 Dose: 10 meq Fluticasone/Salmeterol (Fluticasone-Salmeterol 113-14 Mcg Powder Inh) 1 puff INH BID [facility] Last Admin: 06/08/18 08:08 Dose: 1 puff Simvastatin (Zocor) 40 mg PO DAILY [facility] Last Admin: 06/08/18 08:06 Dose: 40 mg Sodium Chloride (Saline Flush) 10 ml FLUSH ASDIRECTED PRN PRN Reason: Keep Vein Open Last Admin: 06/07/18 20:23 Dose: 10 ml Discontinued Medications Azithromycin (Zithromax) 500 mg PO DAILY [facility] Stop: 06/07/18 08:01 Last Admin: 06/07/18 08:28 Dose: 500 mg Ceftriaxone Sodium (Rocephin) 1 gm IVPUSH BEDTIME [facility] Stop: 06/06/18 20:01 Last Admin: 06/06/18 19:54 Dose: 1 gm - Exam Quality Assessment: Reports: Supplemental Oxygen General: Reports: Alert, Oriented, Cooperative, No Acute Distress Lungs: Reports: Normal Respiratory Effort, Decreased Breath Sounds, Wheezing Cardiovascular: Reports: Regular Rate, Regular Rhythm GI/Abdominal Exam: Normal Bowel Sounds, Soft, Non-Tender Skin: Reports: Warm, Dry, Intact Neurological: Reports: No New Focal Deficit *Q Meaningful Use (DIS) - VTE *Q VTE Mechanical Contraindications *Q: At Risk for Falls
== END 2018-06-08 15:00 | disposition home or self-care (01) | DRG 191 ==
LOC: VM.MS 11:23
PROVIDERS: ADMIT Nurse Practitioner Family; ATTEND Nurse Practitioner Family
DX: J44.1 Chronic obstructive pulmonary disease with (acute) exacerbation (principal); Z68.41 Body mass index [BMI] 40.0-44.9, adult; I11.0 Hypertensive heart disease with heart failure; I50.9 Heart failure, unspecified; E66.01 Morbid (severe) obesity due to excess calories; R53.81 Other malaise; I25.10 Atherosclerotic heart disease of native coronary artery without angina pectoris; Z79.82 Long term (current) use of aspirin; Z79.899 Other long term (current) drug therapy
CPT/HCPCS: 94640; 94760; 97116-GP; A9270-GY; J0696; J2920; J7620-GY

== ENCOUNTER 2019-02-20 17:23 | Emergency (ER) | payer MEDICARE ==
[2019-02-20] MEDS ORDERED: Sodium Chloride 0.9% 10 ML Syringe FLUSH PRN (17:27)
--- NOTE | 2019-02-20 17:50 | CT ---
[id number] CT/CT Head Stroke Protocol Exam: CT Head Stroke Protocol Clinical Data: NEUROLOGIC DEFICIT COMPARISON: NO PREVIOUS SIMILAR EXAM IS AVAILABLE FINDINGS: There is no mass or mass effect There is no hemorrhage or hydrocephalus There are no extra-axial fluid collection There is motion artifact. There is slight focal prominence of the left superior ophthalmic vein IMPRESSION: NO PLAIN CT EVIDENCE OF ACUTE INTRACRANIAL PROCESS Bryant Thompson MD 02/20/19 1468 Thank you for allowing us to participate in the care of your patient.
--- NOTE | 2019-02-20 17:52 | EDM.PDOC ---
ED HPI GENERAL MEDICAL PROBLEM - General Time Seen by Provider: 02/20/19 17:24 Source of Information: Reports: Patient, EMS, Family - History of Present Illness INITIAL COMMENTS - FREE TEXT/NARRATIVE: Katia is a 78 y/o female who is brought to the ER by EMS for an acute onset of left sided facial droop and slurred speech. Patient also complained of dizziness and could not move to call her alert button. On arrival EMS confirmed her slurred speech and left sided facial droop, but she improved enroute to the hospital and she was sx free on arrival to the ER. She was sent to CT immediately. Patient denies any previous sx like this before. - Related Data Allergies Allergy/AdvReac Type Severity Reaction Status Date / Time No Known Allergies Allergy Verified 06/02/18 20:26 Home Meds: Home Meds Potassium Chloride [Klor-Con M10] 10 meq PO DAILY 11/10/15 [History] Simvastatin 40 mg PO DAILY 11/10/15 [History] amLODIPine [Norvasc] 5 mg PO DAILY 11/10/15 [History] Aspirin [Adult Aspirin] 81 mg PO DAILY 06/02/18 [History] Fluticasone/Salmeterol [Advair 250-50 Diskus] 1 puff PO BID 06/02/18 [History] Latanoprost [Xalatan 0.005% Ophth Soln] 0 ml EYEBOTH BEDTIME bottle 06/08/18 [ Rx] diazePAM [Valium] 1 mg PO DAILY tablet 06/08/18 [Rx] Albuterol Sulfate 1.25 mg IH Q4H PRN 02/20/19 [History] Furosemide [Lasix] 20 mg PO DAILY 02/20/19 [History] Metoprolol Succinate [Toprol XL 50mg] 25 mg PO DAILY 02/20/19 [History] Past Medical History Cardiovascular History: Reports: Aneurysm, High Cholesterol, Hypertension, Stents Respiratory History: Reports: COPD Gastrointestinal History: Reports: Diverticulosis Genitourinary History: Reports: Other (See Below) Other Genitourinary History: stress incontinence Musculoskeletal History: Reports: RA Endocrine/Metabolic History: Reports: Obesity/BMI 30+ - Past Surgical History HEENT Surgical History: Reports: Tonsillectomy Cardiovascular Surgical History: Reports: Aneurysm, Carotid Stents, Other (See Below) GI Surgical History: Reports: Colostomy Social & Family History - Family History Family Medical History: Noncontributory - Tobacco Use Packs/Tins Daily: 0.7 - Caffeine Use Caffeine Use: Reports: Tea Review of Systems - Review of Systems Review Of Systems: See Below Constitutional: Reports: Weakness Eyes: Reports: No Symptoms Ears: Reports: Dizziness Nose: Reports: No Symptoms Mouth/Throat: Reports: No Symptoms Respiratory: Reports: Shortness of Breath Cardiovascular: Reports: No Symptoms GI/Abdominal: Reports: No Symptoms Genitourinary: Reports: No Symptoms Musculoskeletal: Reports: No Symptoms Skin: Reports: No Symptoms Neurological: Reports: Dizziness, Trouble Speaking, Weakness, Change in Speech Psychiatric: Reports: No Symptoms ED EXAM, GENERAL - Physical Exam Exam: See Below General Appearance: Alert, WD/WN, No Apparent Distress, Obese (Elderly female) Eye Exam: Bilateral Eye: EOMI Ears: Normal External Exam, Normal Canal, Hearing Grossly Normal, Normal TMs Nose: Normal Inspection, Normal Mucosa, No Blood Throat/Mouth: Normal Inspection, Normal Lips, Normal Teeth, Normal Voice, No Airway Compromise Head: Atraumatic, Normocephalic Neck: Supple, Non-Tender Respiratory/Chest: No Accessory Muscle Use, Chest Non-Tender, Rhonchi, Wheezing , Other (wears home oxygen) Cardiovascular: Normal Peripheral Pulses, Regular Rate, Rhythm, No Edema, No JVD , No Murmur, No Rub Peripheral Pulses: 3+: Dorsalis Pedis (L), Dorsalis Pedis (R) GI/Abdominal: Normal Bowel Sounds, Soft, Non-Tender, No Organomegaly, No Distention, No Abnormal Bruit, No Mass (Female) Exam: Deferred Rectal (Female) Exam: Deferred Back Exam: Normal Inspection Extremities: Normal Inspection, Normal Range of Motion, Non-Tender, No Pedal Edema, Normal Capillary Refill Neurological: Alert, Oriented, CN II-XII Intact, Normal Cognition, Normal Gait, Normal Reflexes, No Motor/Sensory Deficits, Other (FAST Exam Score=0; NIH Stroke Scale=0) Psychiatric: Normal Affect, Normal Mood Skin Exam: Warm, Dry, Intact, Normal Color, No Rash Lymphatic: No Adenopathy EKG INTERPRETATION Rhythm: NSR Course - Vital Signs Text/Narrative:: The patient went immediately to CT on arrival to the ER. The RADIOGRAPHER TECHNOLOGIST then saw her and assessed her. Labs, EKG were ordered. FAST Exam and NIH Stroke Scale were done. [address] results to [facility]. Negative Head CT WO was noted. Discussed need for transfer and referral to Neurology in [place]. Patient and family request transfer to [facility]. [address] [facility] was contacted and case presented. Dr Baca accepted the patient for transport. Neurologist recommends no further treatments here in [facility] prior to transfer. 1814 Patient remained stable and assessment unchanged. Patient left in stable condition with ground ALS crew. Labs pending on patient departure. - Orders/Labs/Meds Orders: Active Orders 24 hr Category Date Time Status Head wo Cont [CT] Stat Exams 02/20/19 17:25 Ordered BASIC METABOLIC PANEL,BMP [CHEM] Stat Lab 02/20/19 17:26 Ordered CBC WITH AUTO DIFF [HEME] Stat Lab 02/20/19 17:26 Ordered CKMB [REF] Stat Lab 02/20/19 17:26 Ordered CREATINE KINASE,CK [CHEM] Stat Lab 02/20/19 17:26 Ordered ETHANOL BLOOD MEDICAL [CHEM] Stat Lab 02/20/19 17:26 Ordered INR,PT,PROTHROMBIN TIME [COAG] Stat Lab 02/20/19 17:26 Ordered PTT,PARTIAL THROMBOPLSTIN TIME [COAG] Stat Lab 02/20/19 17:26 Ordered TROPONIN I [CHEM] Stat Lab 02/20/19 17:26 Ordered Sodium Chloride 0.9% [Saline Flush] Med 02/20/19 17:27 Ordered 10 ml FLUSH ASDIRECTED PRN Saline Lock Insert [OM.PC] Stat Oth 02/20/19 17:26 Ordered Medication Orders Sodium Chloride (Saline Flush) 10 ml FLUSH ASDIRECTED PRN PRN Reason: Keep Vein Open Meds: Medications Generic Name Dose Route Start Last Admin Trade Name Freq PRN Reason Stop Dose Admin Sodium Chloride 10 ml 02/20/19 17:27 Saline Flush FLUSH ASDIRECTED PRN Keep Vein Open Departure - Departure Time of Disposition: 18:15 Disposition: DC/Tfer to Acute Hospital 02 Condition: Good Clinical Impression: Weakness - Discharge Information *PRESCRIPTION DRUG MONITORING PROGRAM REVIEWED*: Not Applicable *COPY OF PRESCRIPTION DRUG MONITORING REPORT IN PATIENT SUPRIYA: Not Applicable Forms: Interfacility Transfer EMTALA - My Orders Last 24 Hours: My Active Orders 02/20/19 17:25 Head wo Cont [CT] Stat 02/20/19 17:26 BASIC METABOLIC PANEL,BMP [CHEM] Stat CBC WITH AUTO DIFF [HEME] Stat CKMB [REF] Stat CREATINE KINASE,CK [CHEM] Stat ETHANOL BLOOD MEDICAL [CHEM] Stat INR,PT,PROTHROMBIN TIME [COAG] Stat PTT,PARTIAL THROMBOPLSTIN TIME [COAG] Stat TROPONIN I [CHEM] Stat Saline Lock Insert [OM.PC] Stat 02/20/19 17:27 Sodium Chloride 0.9% [Saline Flush] 10 ml FLUSH ASDIRECTED PRN - Assessment/Plan Last 24 Hours: My Active Orders 02/20/19 17:25 Head wo Cont [CT] Stat 02/20/19 17:26 BASIC METABOLIC PANEL,BMP [CHEM] Stat CBC WITH AUTO DIFF [HEME] Stat CKMB [REF] Stat CREATINE KINASE,CK [CHEM] Stat ETHANOL BLOOD MEDICAL [CHEM] Stat INR,PT,PROTHROMBIN TIME [COAG] Stat PTT,PARTIAL THROMBOPLSTIN TIME [COAG] Stat TROPONIN I [CHEM] Stat Saline Lock Insert [OM.PC] Stat 02/20/19 17:27 Sodium Chloride 0.9% [Saline Flush] 10 ml FLUSH ASDIRECTED PRN
[2019-02-20 18:16] LABS: ANION GAP 11.4 mmol/L (10-20); CHLORIDE,CL 101 mmol/L (54-184); SODIUM,NA 140 mmol/L (69-191)
== END 2019-02-20 18:36 | disposition short-term general hospital (02) ==
LOC: VM.ED 17:23
DX: R53.1 Weakness (principal); I10 Essential (primary) hypertension; E78.00 Pure hypercholesterolemia, unspecified; J44.9 Chronic obstructive pulmonary disease, unspecified; M06.9 Rheumatoid arthritis, unspecified; Z95.5 Presence of coronary angioplasty implant and graft; E66.9 Obesity, unspecified; Z79.82 Long term (current) use of aspirin; Z79.899 Other long term (current) drug therapy
CPT/HCPCS: 36415; 70450; 80048; 82550; 84484; 85025; 85610; 85730; 93005; 93010; 99284-GF; 99285-25; G0480

== ENCOUNTER 2019-09-19 12:44 | Emergency (ER) | payer MEDICARE ==
[2019-09-19] MEDS ORDERED: Albuterol/Ipratropium 3.0-0.5 MG/3 ML Neb Soln NEB ONE (12:52)
[2019-09-19] MEDS ORDERED: methylPREDNISolone Sodium Succinate 125 MG/2 ML SDV IM ONE (12:52)
[2019-09-19] MEDS ORDERED: Morphine 4 MG/ML Syringe IVPUSH ONE ×2 (12:53→13:58)
--- NOTE | 2019-09-19 13:31 | CR ---
[id number] RAD/RAD Chest PA or AP 1V EXAM: RAD Chest PA or AP 1V INDICATION: SHORTNESS OF BREATH, CHEST PAIN. COMPARISON: June 04, 2018 DISCUSSION: Cardiomediastinal silhouette is stable in size and contour. Pulmonary hyperinflation. Bibasilar pulmonary opacifications are improved when compared to the prior study and likely represents scarring. Underlying infiltrate is not excluded. IMPRESSION: As above. Reggie Duckworth DO 09/19/19 [id number] Thank you for allowing us to participate in the care of your patient.
[2019-09-19 13:48] LABS: ANION GAP 11.2 mmol/L (10-20); CHLORIDE,CL 101 mmol/L (98-107); SODIUM,NA 142 mmol/L (136-145)
--- NOTE | 2019-09-19 14:10 | EDM.PDOC ---
ED HPI GENERAL MEDICAL PROBLEM - General Chief Complaint: Respiratory Problem Stated Complaint: ER Time Seen by Provider: 09/19/19 12:44 Source of Information: Reports: Patient, EMS History Limitations: Reports: No Limitations - History of Present Illness INITIAL COMMENTS - FREE TEXT/NARRATIVE: Pt. presents to ER with complaints of increased shortness of breath and R anteriolateral chest pain, respirophasic in nature. Pt. has a history of COPD and is on home O2 at 5L/min. SHe is on the O2 day and night now; previously she only used it at night. She states that she has "not left the house" since last fall due to her chronic medical problems. Denies any interaction with sick patients. Pt. also has a history of CHF with concentric LV hypertrophy noted on echo in 2019. EF at that time 55-60%. RV function was normal. Pt. is on pulmicort, brovana, and duonebs. She has a history of TIA and bilateral carotid artery stenosis. She is not having any stroke-like symptoms at this time. She had a telehealth appointment on 09/10 and at that time she reported her breathing was baseline, but she states that she has noticed a general increased work of breathing over the past several weeks. She states that she has felt "hot " but denies any chills. She has not been checking her temp. She states that she always has a cough, and states that it is not any worse than normal. Onset: Today Location: Reports: Chest, Generalized Context: Denies: Sick Contact Associated Symptoms: Reports: Chest Pain, Cough, Shortness of Breath. Denies: cough w sputum, Malaise Treatments WALL WORKER: Reports: EKG, IV/IO, Oxygen Right Thoracic Pain Score (Numeric/FACES): 10 - Related Data Allergies Allergy/AdvReac Type Severity Reaction Status Date / Time No Known Allergies Allergy Verified 09/19/19 13:23 Home Meds: Home Meds Potassium Chloride [Klor-Con M10] 10 meq PO DAILY 11/10/15 [History] Simvastatin 40 mg PO DAILY 11/10/15 [History] amLODIPine [Norvasc] 5 mg PO DAILY 11/10/15 [History] Aspirin [Adult Aspirin] 81 mg PO DAILY 06/02/18 [History] Fluticasone Propion/Salmeterol [Advair 250-50 Diskus] 1 puff PO BID 06/02/18 [ History] Latanoprost [Xalatan 0.005% Ophth Soln] 0 ml EYEBOTH BEDTIME bottle 06/08/18 [ Rx] diazePAM [Valium] 1 mg PO DAILY tablet 06/08/18 [Rx] Albuterol Sulfate 1.25 mg IH Q4H PRN 02/20/19 [History] Furosemide [Lasix] 20 mg PO DAILY 02/20/19 [History] Metoprolol Succinate [Toprol XL 50mg] 25 mg PO DAILY 02/20/19 [History] Past Medical History Cardiovascular History: Reports: Aneurysm, High Cholesterol, Hypertension, Stents Respiratory History: Reports: COPD Gastrointestinal History: Reports: Diverticulosis Genitourinary History: Reports: Other (See Below) Other Genitourinary History: stress incontinence Musculoskeletal History: Reports: RA Endocrine/Metabolic History: Reports: Obesity/BMI 30+ - Past Surgical History HEENT Surgical History: Reports: Tonsillectomy Cardiovascular Surgical History: Reports: Aneurysm, Carotid Stents, Other (See Below) GI Surgical History: Reports: Colostomy Social & Family History - Family History Family Medical History: Noncontributory - Tobacco Use Smoking Status *Q: Current Every Day Smoker Years of Tobacco use: 60 Packs/Tins Daily: 1 - Caffeine Use Caffeine Use: Reports: Tea ED ROS GENERAL - Review of Systems Review Of Systems: See Below Constitutional: Reports: No Symptoms HEENT: Reports: No Symptoms Respiratory: Reports: Shortness of Breath, Wheezing, Pleuritic Chest Pain Cardiovascular: Reports: No Symptoms Endocrine: Reports: No Symptoms GI/Abdominal: Reports: No Symptoms : Reports: No Symptoms Musculoskeletal: Reports: No Symptoms Skin: Reports: No Symptoms Neurological: Reports: No Symptoms Psychiatric: Reports: No Symptoms Hematologic/Lymphatic: Reports: No Symptoms Immunologic: Reports: No Symptoms ED EXAM, GENERAL - Physical Exam Exam: See Below Exam Limited By: No Limitations General Appearance: Alert, WD/WN, No Apparent Distress Eye Exam: Bilateral Eye: EOMI, PERRL Head: Atraumatic, Normocephalic Neck: Normal Inspection, Supple, Non-Tender Respiratory/Chest: No Accessory Muscle Use, Respiratory Distress, Decreased Breath Sounds, Wheezing Cardiovascular: Normal Peripheral Pulses, Regular Rate, Rhythm, No Edema, No JVD Peripheral Pulses: 4+: Radial (L) GI/Abdominal: Normal Bowel Sounds, Soft, Non-Tender, No Distention, No Mass (Female) Exam: Deferred Rectal (Female) Exam: Deferred Back Exam: Normal Inspection, Full Range of Motion Extremities: Normal Inspection, Normal Range of Motion, Non-Tender Neurological: Alert, Oriented, CN II-XII Intact, Normal Cognition, No Motor/ Sensory Deficits Psychiatric: Normal Affect, Normal Mood Skin Exam: Warm, Dry, Intact, Pallor Lymphatic: No Adenopathy EKG INTERPRETATION Rhythm: NSR Stephan: Normal P-Wave: Present QRS: Normal ST-T: Normal QT: Normal Course - Vital Signs Last Recorded V/S: Last Vital Signs Temp 36.6 C 09/19/19 12:44 Pulse 68 09/19/19 12:44 Resp 24 H 09/19/19 12:44 BP 156/52 H 09/19/19 12:44 Pulse Ox 95 09/19/19 12:44 - Orders/Labs/Meds Orders: Active Orders 24 hr Category Date Time Status RT Aerosol Therapy [RC] ASDIRECTED Care 09/19/19 12:52 Active CORONAVIRUS COVID-19 PCR PHL Stat Lab 09/19/19 15:05 Ordered CULTURE BLOOD [BC] Stat Lab 09/19/19 13:05 Received CULTURE BLOOD [BC] Stat Lab 09/19/19 13:11 Received Blood Culture x2 Reflex Set [OM.PC] Stat Oth 09/19/19 12:52 Ordered Labs: Laboratory Tests 09/19/19 09/19/19 09/19/19 Range/Units 13:05 13:05 13:05 WBC 7.1 (4.0-10.0) x10^3/uL RBC 4.79 (4.00-5.50) x10^6/uL Hgb 13.9 (12.0-16.0) g/dL Hct 44.1 (33.0-47.0) % MCV 92.1 (78.0-93.0) fL MCH 29.0 (26.0-32.0) pg MCHC 31.5 L (32.0-36.0) g/dL RDW Coeff of Georgina 22.2 H (10.0-15.0) % Plt Count 194 (130-400) x10^3/uL Neut % (Auto) 65.5 (50.0-80.0) % Lymph % (Auto) 18.2 L (25.0-50.0) % [place] % (Auto) 12.7 H (2.0-11.0) % Eos % (Auto) 3.2 (0.0-4.0) % Baso % (Auto) 0.4 (0.2-1.2) % PT 10.7 (9.5-12.3) SEC INR 1.0 L (2.0-3.5) D-Dimer, Quantitative (<=0.58) mg/LFEU Sodium 142 (136-145) mmol/L Potassium 4.2 (3.5-5.1) mmol/L Chloride 101 (98-107) mmol/L Carbon Dioxide 34 H (21-32) mmol/L Anion Gap 11.2 (10-20) mmol/L BUN 10 (7-18) mg/dL Creatinine 0.6 (0.55-1.02) mg/dL Est Cr Clr Drug Dosing TNP Estimated GFR (MDRD) > 60 Glucose 100 (74-106) mg/dL Lactic Acid (0.4-2.0) mmol/L Calcium 9.2 (8.5-10.1) mg/dL Corrected Calcium 9.52 (8.5-10.1) mg/dL Magnesium 1.9 (1.8-2.4) mg/dL Total Bilirubin 1.5 H (0.2-1.0) mg/dL AST 18 (15-37) U/L ALT 12 L (14-59) U/L Alkaline Phosphatase 114 (46-116) U/L Troponin I < 0.017 (<=0.056) ng/mL C-Reactive Protein 0.6 (<=0.9) mg/dL NT-Pro-B Natriuret Pep 2002 H (<=450) pg/mL Total Protein 7.2 (6.4-8.2) g/dL Albumin 3.6 (3.4-5.0) g/dL Globulin 3.6 Albumin/Globulin Ratio 1.00 09/19/19 09/19/19 Range/Units 13:05 13:05 WBC (4.0-10.0) x10^3/uL RBC (4.00-5.50) x10^6/uL Hgb (12.0-16.0) g/dL Hct (33.0-47.0) % MCV (78.0-93.0) fL MCH (26.0-32.0) pg MCHC (32.0-36.0) g/dL RDW Coeff of Georgina (10.0-15.0) % Plt Count (130-400) x10^3/uL Neut % (Auto) (50.0-80.0) % Lymph % (Auto) (25.0-50.0) % [place] % (Auto) (2.0-11.0) % Eos % (Auto) (0.0-4.0) % Baso % (Auto) (0.2-1.2) % PT (9.5-12.3) SEC INR (2.0-3.5) D-Dimer, Quantitative 1.05 H (<=0.58) mg/LFEU Sodium (136-145) mmol/L Potassium (3.5-5.1) mmol/L Chloride (98-107) mmol/L Carbon Dioxide (21-32) mmol/L Anion Gap (10-20) mmol/L BUN (7-18) mg/dL Creatinine (0.55-1.02) mg/dL Est Cr Clr Drug Dosing Estimated GFR (MDRD) Glucose (74-106) mg/dL Lactic Acid 0.9 (0.4-2.0) mmol/L Calcium (8.5-10.1) mg/dL Corrected Calcium (8.5-10.1) mg/dL Magnesium (1.8-2.4) mg/dL Total Bilirubin (0.2-1.0) mg/dL AST (15-37) U/L ALT (14-59) U/L Alkaline Phosphatase (46-116) U/L Troponin I (<=0.056) ng/mL C-Reactive Protein (<=0.9) mg/dL NT-Pro-B Natriuret Pep (<=450) pg/mL Total Protein (6.4-8.2) g/dL Albumin (3.4-5.0) g/dL Globulin Albumin/Globulin Ratio Meds: Medications Discontinued Medications Generic Name Dose Route Start Last Admin Trade Name Freq PRN Reason Stop Dose Admin Albuterol/Ipratropium 3 ml 09/19/19 12:52 09/19/19 13:12 Duoneb 3.0-0.5 Mg/3 Ml NEB 09/19/19 12:53 3 ml ONETIME ONE Administration Ceftriaxone Sodium 1 gm 09/19/19 15:09 Rocephin IVPUSH 09/19/19 15:10 STAT ONE Iopamidol 100 ml 09/19/19 14:20 09/19/19 14:29 Isovue-300 (61%) IVPUSH 09/19/19 14:21 100 ml ONETIME ONE Administration Methylprednisolone Sodium Succinate 125 mg 09/19/19 12:52 09/19/19 13:12 Solu-Medrol IM 09/19/19 12:53 125 mg ONETIME ONE Administration Morphine Sulfate 4 mg 09/19/19 12:53 09/19/19 13:15 Morphine IVPUSH 09/19/19 12:54 4 mg ONETIME ONE Administration Morphine Sulfate 4 mg 09/19/19 13:58 09/19/19 14:11 Morphine IVPUSH 09/19/19 13:59 4 mg ONETIME ONE Administration - Radiology Interpretation Free Text/Narrative:: Near total collapse of L lower lobe on CTA. COPD. No obvious filling defect or embolism noted. - Re-Assessments/Exams Free Text/Narrative Re-Assessment/Exam: Pt. was given a duoneb breathing treatment on arrival. She was given solu medrol 125mg IV. Pain was well controlled with several small doses of IV morphine. She was given rocephin 1 gm IV per discussion with physician accepting transfer. Covid 19 results are pending. Departure - Departure Time of Disposition: 15:27 Disposition: DC/Tfer to Acute Hospital 02 Clinical Impression: Atelectasis of left lung COPD (chronic obstructive pulmonary disease) Qualifiers: Chronic bronchitis type: unspecified - Discharge Information Referrals: Tessa Tamayo NP [Primary Care Provider] - Forms: ED Department Discharge Sepsis Event Note - Evaluation Sepsis Screening Result: No Definite Risk - Focused Exam Vital Signs: Vital Signs Temp Pulse Resp BP Pulse Ox 09/19/19 12:44 36.6 C 68 24 H 156/52 H 95 Date Exam was Performed: 09/19/19 Time Exam was Performed: 15:18 - Problem List Review Problem List Initiated/Reviewed/Updated: Yes - My Orders Last 24 Hours: My Active Orders 09/19/19 12:52 RT Aerosol Therapy [RC] ASDIRECTED Blood Culture x2 Reflex Set [OM.PC] Stat 09/19/19 13:05 CULTURE BLOOD [BC] Stat 09/19/19 13:11 CULTURE BLOOD [BC] Stat 09/19/19 15:05 CORONAVIRUS COVID-19 PCR PHL Stat - Assessment/Plan Last 24 Hours: My Active Orders 09/19/19 12:52 RT Aerosol Therapy [RC] ASDIRECTED Blood Culture x2 Reflex Set [OM.PC] Stat 09/19/19 13:05 CULTURE BLOOD [BC] Stat 09/19/19 13:11 CULTURE BLOOD [BC] Stat 09/19/19 15:05 CORONAVIRUS COVID-19 PCR PHL Stat Plan: Pt. will be transferred to [facility] in [place]. Dr. Malagon is accepting. Pt. will be transported via [facility] ground ambulance. Discussed findings with patient and son.
[2019-09-19] MEDS ORDERED: Iopamidol 612 MG/ML 100 ML Bottle IVPUSH ONE (14:20)
--- NOTE | 2019-09-19 14:59 | CT ---
[id number] CT/CTA Chest EXAM: CT ANGIOGRAM CHEST INDICATION: CHEST PAIN, POSITIVE D-DIMER. COMPARISON: None. DISCUSSION: No pulmonary arterial filling defects to suggest acute pulmonary embolism. The main pulmonary artery is enlarged measuring up to 4.3 cm consistent with pulmonary hypertension. No suspicious pulmonary nodules or masses. There is near complete collapse of the left lower lobe. Right basilar atelectasis. No pneumothorax or pleural effusion. The heart is enlarged. Coronary artery disease. Atherosclerotic calcifications of the aorta and its branches. No pathologic adenopathy. Generalized hypodensity of the liver consistent with hepatic steatosis IMPRESSION: 1. No evidence of acute pulmonary embolism. 2. Near complete collapse of the left lower lobe. Bronchoscopy could be considered for further evaluation. Reggie Duckworth DO 09/19/19 [id number] Thank you for allowing us to participate in the care of your patient.
[2019-09-19] MEDS ORDERED: cefTRIAXone 1 GM Vial IVPUSH ONE (15:09)
[2019-09-19 15:37] VITALS: BP 138/78; PULSE 77
== END 2019-09-19 16:38 | disposition short-term general hospital (02) ==
LOC: VM.ED 12:44
DX: J44.9 Chronic obstructive pulmonary disease, unspecified (principal); J98.11 Atelectasis; E78.00 Pure hypercholesterolemia, unspecified; I10 Essential (primary) hypertension; E66.9 Obesity, unspecified; M06.9 Rheumatoid arthritis, unspecified; Z79.82 Long term (current) use of aspirin; Z79.899 Other long term (current) drug therapy; Z99.81 Dependence on supplemental oxygen; Z95.5 Presence of coronary angioplasty implant and graft
CPT/HCPCS: 36415; 71045; 71275; 80053; 83605; 83735; 83880; 84484; 85025; 85379; 85610; 86140; 87040; 93010; 94640; 96372; 96374; 96375; 96376; 99284; 99285; J0696; J2270; J2930; Q9967; U0002; J7620-GY

== ENCOUNTER 2019-11-23 22:09 | Emergency (ER) | payer MEDICARE, OTHER ==
[2019-11-23] MEDS ORDERED: Albuterol/Ipratropium 3.0-0.5 MG/3 ML Neb Soln NEB ONE (22:18)
[2019-11-23] MEDS ORDERED: Budesonide 0.5 MG/2 ML Neb Susp NEB ONE (22:18)
[2019-11-23] MEDS ORDERED: methylPREDNISolone Sodium Succinate 125 MG/2 ML SDV IVPUSH ONE (22:19)
--- NOTE | 2019-11-23 22:34 | EDM.PDOC ---
ED HPI GENERAL MEDICAL PROBLEM - General Stated Complaint: weakness Time Seen by Provider: 11/23/19 22:25 Source of Information: Reports: Patient History Limitations: Reports: No Limitations - History of Present Illness INITIAL COMMENTS - FREE TEXT/NARRATIVE: Patient comes emergency department today by ambulance from home with concerns of weakness. This patient contacted the ambulance earlier today because she was unable to get up from the toilet. She refused ambulance transfer at that time after she was assisted off the toilet. Tonight she again had some weakness and can get off the chair of the couch. Upon EMS arrival she did not have her oxygen in place which she is supposed to have it in place at 5 L chronically. Her oxygen saturation was 66% on room air upon arrival. Upon arrival the patient really only complains of weakness. No increased shortness of breath. She has not used any nebulizers at home. She uses her oxygen when she feels like it. She does not have an on all the time like she is supposed to. She has no fever or chills. No cold exposure. No COVID symptoms. No weakness dizziness lightheadedness. No chest pain. No palpitations. She does have a chronic cough that is a little bit worse than normal but not more productive than usual. No fever no chills. She has not been on any steroids recently or change in her COPD management. She has no abdominal pain nausea or vomiting. No hematuria dysuria or urinary frequency. No black or tarry stools or diarrhea. - Related Data Allergies Allergy/AdvReac Type Severity Reaction Status Date / Time No Known Allergies Allergy Verified 11/23/19 23:30 Home Meds: Home Meds Potassium Chloride [Klor-Con M10] 10 meq PO DAILY 11/10/15 [History] Simvastatin 40 mg PO DAILY 11/10/15 [History] amLODIPine [Norvasc] 5 mg PO DAILY 11/10/15 [History] Aspirin [Adult Aspirin] 81 mg PO DAILY 06/02/18 [History] Furosemide [Lasix] 20 mg PO DAILY 02/20/19 [History] Albuterol/Ipratropium [DuoNeb 3.0-0.5 MG/3 ML] 3 ml IH Q6H PRN 09/19/19 [History] Arformoterol [Brovana] 1 puff INH BID 09/19/19 [History] Budesonide [Pulmicort] 0.5 mg IH BID 09/19/19 [History] Clobetasol/Emollient [Temovate E 0.05% Crm] 30 gm TOP BID 09/19/19 [History] Clopidogrel Bisulfate [Plavix] 75 mg PO DAILY 09/19/19 [History] Sennosides/Docusate Sodium [Senna-Docusate Sodium Tablet] 2 each PO DAILY 09/19/19 [History] Travoprost [Travatan Z] 5 ml EYEBOTH BEDTIME 09/19/19 [History] Past Medical History Cardiovascular History: Reports: Aneurysm, High Cholesterol, Hypertension, Stents Respiratory History: Reports: COPD Gastrointestinal History: Reports: Diverticulosis Genitourinary History: Reports: Other (See Below) Other Genitourinary History: stress incontinence Musculoskeletal History: Reports: RA Endocrine/Metabolic History: Reports: Obesity/BMI 30+ - Past Surgical History HEENT Surgical History: Reports: Tonsillectomy Cardiovascular Surgical History: Reports: Aneurysm, Carotid Stents, Other (See Below) GI Surgical History: Reports: Colostomy Social & Family History - Family History Family Medical History: Noncontributory - Caffeine Use Caffeine Use: Reports: Tea ED ROS GENERAL - Review of Systems Review Of Systems: Comprehensive ROS is negative, except as noted in HPI. ED EXAM, GENERAL - Physical Exam Exam: See Below Exam Limited By: No Limitations General Appearance: Alert, WD/WN, Mild Distress Eye Exam: Bilateral Eye: EOMI, PERRL Ears: Normal External Exam Nose: Normal Inspection Throat/Mouth: Normal Inspection Head: Atraumatic, Normocephalic Neck: Normal Inspection Respiratory/Chest: No Accessory Muscle Use, Respiratory Distress (Mild only able to speak in 5-7 word sentences before having to stop and take a breath. ), Decreased Breath Sounds (throughout. ), Wheezing (Mild inspiratory and moderate expiratory and course throughout does not clear with a cough. ) Cardiovascular: Normal Peripheral Pulses, Regular Rate, Rhythm GI/Abdominal: Normal Bowel Sounds, Soft, Non-Tender (Female) Exam: Deferred Rectal (Female) Exam: Deferred Back Exam: Normal Inspection, Full Range of Motion Extremities: Normal Inspection, Normal Range of Motion Neurological: Alert, Oriented, Normal Cognition, No Motor/Sensory Deficits Psychiatric: Normal Affect, Normal Mood Skin Exam: Warm, Dry, Intact, Normal Color, No Rash EKG INTERPRETATION EKG Date: 11/24/19 Time: 11:02 Rhythm: NSR Rate (Beats/Min): 87 [place]: Normal P-Wave: Present QRS: Normal ST-T: Normal QT: Normal Comparison: NA - No Prior EKG Course - Vital Signs Last Recorded V/S: Last Vital Signs Temp 96.8 F L 11/23/19 23:14 Pulse 84 11/23/19 23:14 Resp 20 11/23/19 23:14 BP 146/58 H 11/23/19 23:14 Pulse Ox 90 L 11/23/19 23:14 - Orders/Labs/Meds Orders: Active Orders 24 hr Category Date Time Status EKG Documentation Completion [RC] STAT Care 11/23/19 22:12 Active Oxygen Therapy Adult [Oxygen Therapy, ED] [] Care 11/23/19 22:09 Active ASDIRECTED RT Aerosol Therapy [RC] ASDIRECTED Care 11/23/19 22:18 Active CULTURE BLOOD [BC] Stat Lab 11/23/19 22:30 Received CULTURE BLOOD [BC] Stat Lab 11/23/19 22:40 Received Blood Culture x2 Reflex Set [OM.PC] Stat Oth 11/23/19 22:12 Ordered Labs: Laboratory Tests 11/23/19 11/23/19 11/23/19 Range/Units 22:16 22:30 22:30 WBC 12.1 H (4.0-10.0) x10^3/uL RBC 4.59 (4.00-5.50) x10^6/uL Hgb 13.4 (12.0-16.0) g/dL Hct 41.8 (33.0-47.0) % MCV 91.1 (78.0-93.0) fL MCH 29.2 (26.0-32.0) pg MCHC 32.1 (32.0-36.0) g/dL RDW Coeff of Georgina 18.5 H (10.0-15.0) % Plt Count 230 (130-400) x10^3/uL Neut % (Auto) 80.0 (50.0-80.0) % Lymph % (Auto) 8.6 L (25.0-50.0) % [place] % (Auto) 11.0 (2.0-11.0) % Eos % (Auto) 0.2 (0.0-4.0) % Baso % (Auto) 0.2 (0.2-1.2) % Sodium 137 (136-145) mmol/L Potassium 4.4 (3.5-5.1) mmol/L Chloride 98 (98-107) mmol/L Carbon Dioxide 30 (21-32) mmol/L Anion Gap 13.4 (10-20) mmol/L BUN 22 H (7-18) mg/dL Creatinine 1.1 H (0.55-1.02) mg/dL Est Cr Clr Drug Dosing TNP Estimated GFR (MDRD) 48 Glucose 110 H (74-106) mg/dL Calcium 9.0 (8.5-10.1) mg/dL Corrected Calcium 9.64 (8.5-10.1) mg/dL Total Bilirubin 1.1 H (0.2-1.0) mg/dL AST 37 (15-37) U/L ALT 28 (14-59) U/L Alkaline Phosphatase 115 (46-116) U/L Troponin I 0.649 H* (<=0.056) ng/mL C-Reactive Protein 3.0 H (<=0.9) mg/dL NT-Pro-B Natriuret Pep 53242 H (<=450) pg/mL Total Protein 6.7 (6.4-8.2) g/dL Albumin 3.2 L (3.4-5.0) g/dL Globulin 3.5 Albumin/Globulin Ratio 0.91 COVID-19 (NASREEN) Negative (NEGATIVE) Meds: Medications Discontinued Medications Generic Name Dose Route Start Last Admin Trade Name Freq PRN Reason Stop Dose Admin Albuterol/Ipratropium 3 ml 11/23/19 22:18 11/23/19 22:30 Duoneb 3.0-0.5 Mg/3 Ml NEB 11/23/19 22:19 3 ml ONETIME ONE Administration Aspirin 324 mg 11/23/19 23:18 11/23/19 23:40 Aspirin PO 11/23/19 23:19 324 mg ONETIME ONE Administration Budesonide 1 mg 11/23/19 22:18 11/23/19 22:50 Pulmicort NEB 11/23/19 22:19 1 mg ONETIME ONE Administration Furosemide 40 mg 11/23/19 23:20 11/23/19 23:46 Lasix IV 11/23/19 23:21 40 mg ONETIME ONE Administration Furosemide Confirm 11/23/19 23:47 11/23/19 23:47 Lasix Administered 11/23/19 23:48 Not Given Dose 40 mg .ROUTE .STK-MED ONE Methylprednisolone Sodium Succinate 125 mg 11/23/19 22:19 11/23/19 22:32 Solu-Medrol IVPUSH 11/23/19 22:20 125 mg ONETIME ONE Administration - Radiology Interpretation Free Text/Narrative:: Chest x-ray per radiology shows an opacity in the right lower lung zone may indicate atelectasis versus pneumonia. A subpulmonic effusion could also be considered. - Re-Assessments/Exams Free Text/Narrative Re-Assessment/Exam: 11/23/19 22:55 Blood cultures x 2 Covid Negative. Duo-neb and budesonide nebulizers. Solu-Medrol 125 mg IV push. The patient's oxygen was able to be titrated down to 5 L which is her baseline after the above therapy. Still quite a bit of audible congestion. Her troponin came back elevated at 0.6. proBNP at 11,000. She is not having any chest pain. Aspirin 324 orally as well as 40 mg of Lasix IV push. I called and spoke with Dr. Neri at [facility] in [place]. HPI ER Course findings and concerns were relayed to him verbally over the phone. He accepted the patient in transfer at this time with no new orders. I discussed the plan of care with the patient. She is comfortable with this plan and her questions answered. Departure - Departure Time of Disposition: 23:47 Disposition: DC/Tfer to Acute Hospital 02 Clinical Impression: NSTEMI (non-ST elevated myocardial infarction) Chronic respiratory failure Qualifiers: Respiratory failure complication: hypoxia Qualified Code(s): J96.11 - Chronic respiratory failure with hypoxia CHF exacerbation Qualifiers: Heart failure type: unspecified Qualified Code(s): I50.9 - Heart failure, unspecified COPD (chronic obstructive pulmonary disease) Qualifiers: COPD type: unspecified COPD Qualified Code(s): J44.9 - Chronic obstructive pulmonary disease, unspecified - Discharge Information Referrals: Tessa Tamayo CONE WINDER [Primary Care Provider] - Forms: Interfacility Transfer EMTALA - My Orders Last 24 Hours: My Active Orders 11/23/19 22:09 Oxygen Therapy Adult [Oxygen Therapy, ED] [RC] ASDIRECTED 11/23/19 22:12 EKG Documentation Completion [RC] STAT Blood Culture x2 Reflex Set [OM.PC] Stat 11/23/19 22:18 RT Aerosol Therapy [RC] ASDIRECTED 11/23/19 22:30 CULTURE BLOOD [BC] Stat 11/23/19 22:40 CULTURE BLOOD [BC] Stat - Assessment/Plan Last 24 Hours: My Active Orders 11/23/19 22:09 Oxygen Therapy Adult [Oxygen Therapy, ED] [RC] ASDIRECTED 11/23/19 22:12 EKG Documentation Completion [RC] STAT Blood Culture x2 Reflex Set [OM.PC] Stat 11/23/19 22:18 RT Aerosol Therapy [RC] ASDIRECTED 11/23/19 22:30 CULTURE BLOOD [BC] Stat 11/23/19 22:40 CULTURE BLOOD [BC] Stat
[2019-11-23 23:17] LABS: ANION GAP 13.4 mmol/L (10-20); CHLORIDE,CL 98 mmol/L (98-107); SODIUM,NA 137 mmol/L (136-145)
[2019-11-23] MEDS ORDERED: Aspirin 81 MG Tab.Chew PO ONE (23:18)
[2019-11-23] MEDS ORDERED: Furosemide 40 MG/4 ML VIAL IV ONE (23:20)
[2019-11-23] MEDS ORDERED: Furosemide 40 MG/4 ML VIAL ONE (23:47)
[2019-11-24 00:18] VITALS: BP 146/58; PULSE 84
--- NOTE | 2019-11-24 10:09 | CR ---
[id number] RAD/RAD Chest PA or AP 1V EXAM: RAD Chest PA or AP 1V INDICATION: HYPOXIA. COMPARISON: September 19, 2019. DISCUSSION: Cardiomediastinal silhouette is stable in size and contour. Pulmonary hyperinflation. Left basilar pulmonary infiltrate. Small bilateral pleural effusions. No pneumothorax. IMPRESSION: 1. Left basilar pulmonary infiltrate. 2. Small bilateral pleural effusions. Reggie Duckworth DO 11/24/19 1008 Thank you for allowing us to participate in the care of your patient.
--- NOTE | 2019-11-29 16:27 | PCM.SN.2 ---
- Free Text/Narrative Note: Blood cultures returned with susceptibility. Pt was transferred and treated at a higher level of care. Lab values were sent via lab to receiving hospital. no further notification is needed at this time.
== END 2019-11-24 00:40 | disposition short-term general hospital (02) ==
LOC: VM.ED 22:09
DX: I21.4 Non-ST elevation (NSTEMI) myocardial infarction (principal); I11.0 Hypertensive heart disease with heart failure; I50.9 Heart failure, unspecified; J44.9 Chronic obstructive pulmonary disease, unspecified; J96.11 Chronic respiratory failure with hypoxia; M06.9 Rheumatoid arthritis, unspecified; E66.9 Obesity, unspecified; Z68.35 Body mass index [BMI] 35.0-35.9, adult; Z20.828 Contact with and (suspected) exposure to other viral communicable diseases; Z79.82 Long term (current) use of aspirin; Z79.02 Long term (current) use of antithrombotics/antiplatelets; Z79.899 Other long term (current) drug therapy
CPT/HCPCS: 36415; 71045; 80053; 83880; 84484; 85025; 86140; 87040; 87077; 93005; 93010; 94640; 96374; 96375; 99284; 99285; A9270; J1940; J2930; U0002; 87186; J7620-GY

== ENCOUNTER 2020-01-09 23:21 | Emergency (ER) | payer MEDICARE ==
[2020-01-10 00:56] LABS: ANION GAP 16.2 mmol/L (10-20); CHLORIDE,CL 92 mmol/L (98-107); SODIUM,NA 134 mmol/L (136-145)
[2020-01-10] MEDS: cefTRIAXone 1 GM Vial IVPUSH ONE (01:39)
--- NOTE | 2020-01-10 01:55 | EDM.PDOC ---
ED HPI GENERAL MEDICAL PROBLEM - General Chief Complaint: General Stated Complaint: Weakness/Fall Time Seen by Provider: 01/09/20 23:25 Source of Information: Reports: Patient, EMS History Limitations: Reports: Altered Mental Status - History of Present Illness INITIAL COMMENTS - FREE TEXT/NARRATIVE: Patient comes emergency department today from home by EMS with concerns of a w eakness and a fall. Per EMS this patient has had quite a bit of decline in her home residence. They are very familiar with her. Her residence is very unhygienic there is feces and stool throughout the bathroom the house on the floor. This patient typically is very active and interactive with them and she is very different today. The house is very dirty and pretty much uninhabitable due to the cleanliness concerns. The patient today stated that she was trying to get into the shower about noon or so and she slipped and fell landing on the ground and she was unable to get up from the floor. Her son refuses to help her so they contacted the ambulance. Although the patient states that she fell about noon she did not summon the ambulance until this evening about 10 PM and she still believes that it is about 2:00 in the afternoon. She states that she just lost her balance and she fell. She had no chest pain shortness of breath weakness dizziness lightheadedness prior to the fall. No palpitations. She was unable to get up from the floor so she summoned the ambulance. Upon arrival patient denies any head neck or back pain. She knows her name she knows she is in [place] she is confused on the date and the events leading up to the incident tonight. She has no chest pain shortness of breath or difficulty breathing. No cough or congestion. She is chronically on 5 L of oxygen for her COPD. She had been off her oxygen for a couple of hours as she was on the floor and could not get to her oxygen. No COVID no COVID concerns. She was incontinent of urine and stool. She complains of generalized weakness and pain everywhere on her body. - Related Data Allergies Allergy/AdvReac Type Severity Reaction Status Date / Time No Known Allergies Allergy Verified 01/10/20 01:25 Home Meds: Home Meds Potassium Chloride [Klor-Con M10] 10 meq PO DAILY 11/10/15 [History] Simvastatin 40 mg PO DAILY 11/10/15 [History] amLODIPine [Norvasc] 5 mg PO DAILY 11/10/15 [History] Aspirin [Adult Aspirin] 81 mg PO DAILY 06/02/18 [History] Furosemide [Lasix] 20 mg PO DAILY 02/20/19 [History] Albuterol/Ipratropium [DuoNeb 3.0-0.5 MG/3 ML] 3 ml IH Q6H PRN 09/19/19 [History] Arformoterol [Brovana] 1 puff INH BID 09/19/19 [History] Budesonide [Pulmicort] 0.5 mg IH BID 09/19/19 [History] Clobetasol/Emollient [Temovate E 0.05% Crm] 30 gm TOP BID 09/19/19 [History] Clopidogrel Bisulfate [Plavix] 75 mg PO DAILY 09/19/19 [History] Sennosides/Docusate Sodium [Senna-Docusate Sodium Tablet] 2 each PO DAILY 09/19/19 [History] Travoprost [Travatan Z] 5 ml EYEBOTH BEDTIME 09/19/19 [History] Past Medical History Cardiovascular History: Reports: Aneurysm, High Cholesterol, Hypertension, Stents Respiratory History: Reports: COPD Gastrointestinal History: Reports: Diverticulosis Genitourinary History: Reports: Other (See Below) Other Genitourinary History: stress incontinence Musculoskeletal History: Reports: RA Endocrine/Metabolic History: Reports: Obesity/BMI 30+ - Past Surgical History HEENT Surgical History: Reports: Tonsillectomy Cardiovascular Surgical History: Reports: Aneurysm, Carotid Stents, Other (See Below) GI Surgical History: Reports: Colostomy Social & Family History - Family History Family Medical History: Noncontributory - Caffeine Use Caffeine Use: Reports: Tea ED ROS GENERAL - Review of Systems Review Of Systems: Comprehensive ROS is negative, except as noted in HPI. ED EXAM, GENERAL - Physical Exam Exam: See Below Free Text/Narrative:: I have seen this patient before and really her alertness is appropriate but she is not her normal conversive self. She is usually very rude and very talkative but she is very quiet and answers questions with 1 or 2 word sentences and really does not give much information. She is clearly in hygienic arrest and is covered in stool and urine of her lower extremities. She has quite a bit of intertrigo in the folds of her skin as well. She has quite a bit of erythema and skin breakdown in the perineal region consistent with recurrent incontinence of urine and stool. Nothing appears acutely infectious of her perineal region. General Appearance: Alert, WD/WN, No Apparent Distress Eye Exam: Bilateral Eye: EOMI, PERRL Ears: Normal External Exam Nose: Normal Inspection Throat/Mouth: Normal Inspection Head: Atraumatic, Normocephalic Neck: Normal Inspection, Supple, Non-Tender, Full Range of Motion. No: Tender Lateral, Tender Midline Respiratory/Chest: No Respiratory Distress, No Accessory Muscle Use, Decreased Breath Sounds (Decreased breath sounds bilaterally), Wheezing (late expiratory w heezing bilaterally. ). No: Respiratory Distress, Accessory Muscle Use, Retractions Cardiovascular: Normal Peripheral Pulses, Irregularly Irregular GI/Abdominal: Normal Bowel Sounds, Soft, Non-Tender, Other (She has quite a bit of areas of ecchymosis throughout her abdomen which she states are from injections from when she was in the hospital. There is no sign of infection on the abdominal skin.) (Female) Exam: Other (As stated previously she has quite a bit of dried stool and urine in her perineal region with intertrigo as well as superficial skin irritation without any signs of infection.) Rectal (Female) Exam: Deferred Back Exam: Normal Inspection, Full Range of Motion. No: Paraspinal Tenderness, Vertebral Tenderness Extremities: Normal Inspection (Although she complains of tenderness to bilateral hips on palpation.) Neurological: Alert, CN II-XII Intact, No Motor/Sensory Deficits, Confused (not her normal self slow to answer. Follow commands but slow to do so from her baseline. ). No: Oriented Psychiatric: Flat Affect Skin Exam: Warm, Dry, Intact, Normal Color, No Rash EKG INTERPRETATION EKG Date: 01/09/20 Time: 23:54 Rhythm: A-Fib Rate (Beats/Min): 93 Ragan: Normal P-Wave: Variable QRS: Normal ST-T: Normal QT: Normal Comparison: Change From Previous EKG (new onset Afib when compared to EKGs of the past.) Course - Vital Signs Last Recorded V/S: Last Vital Signs Temp 96.6 F L 01/10/20 00:15 Pulse 96 01/10/20 00:15 Resp 18 01/10/20 00:15 BP 162/100 H 01/10/20 00:15 Pulse Ox 92 L 01/10/20 00:15 - Orders/Labs/Meds Orders: Active Orders 24 hr Category Date Time Status EKG Documentation Completion [RC] STAT Care 01/09/20 23:39 Active Chest 1V Frontal [CR] Stat Exams 01/09/20 23:52 Taken Head wo Cont [CT] Stat Exams 01/09/20 23:39 Taken Hip Min 2V or 3V Rt [CR] Stat Exams 01/10/20 00:11 Taken Pelvis 1V or 2V [CR] Stat Exams 01/09/20 23:40 Taken CULTURE BLOOD [BC] Stat Lab 01/10/20 01:40 Received CULTURE BLOOD [BC] Stat Lab 01/10/20 01:45 Results Sodium Chloride 0.9% [Normal Saline] 1,000 ml Med 01/10/20 01:45 Active IV ASDIRECTED Vancomycin 1.25 gm Med 01/10/20 01:47 Active Sodium Chloride 0.9% [Normal Saline (AdvBag)] 250 ml IV STAT Blood Culture x2 Reflex Set [OM.PC] Stat Oth 01/10/20 01:25 Ordered Medication Orders Sodium Chloride (Normal Saline) 1,000 mls @ 150 mls/hr IV ASDIRECTED SAMIRA Last Admin: 01/10/20 02:07 Dose: 150 mls/hr Documented by: RICHMOND Vancomycin HCl 1.25 gm/ Sodium (Chloride) 250 mls @ 200 mls/hr IV STAT ONE Stop: 01/10/20 03:01 Last Admin: 01/10/20 02:08 Dose: 200 mls/hr Documented by: RICHMOND Labs: Laboratory Tests 01/09/20 01/09/20 01/09/20 Range/Units 23:50 23:50 23:50 WBC 14.0 H (4.0-10.0) x10^3/uL RBC 5.91 H (4.00-5.50) x10^6/uL Hgb 16.5 H D (12.0-16.0) g/dL Hct 50.2 H (33.0-47.0) % MCV 84.9 D (78.0-93.0) fL MCH 27.9 (26.0-32.0) pg MCHC 32.9 (32.0-36.0) g/dL RDW Coeff of Georgina 20.6 H (10.0-15.0) % Plt Count 226 (130-400) x10^3/uL Add Manual Diff Yes Neutrophils % (Manual) 83 H (50-80) % Band Neutrophils % 6 (0-6) % Lymphocytes % (Manual) 4 L (25-50) % Monocytes % (Manual) 7 (2-11) % Platelet Estimate Adequate Anisocytosis 3+ marked H Sodium 134 L (136-145) mmol/L Potassium 3.2 L (3.5-5.1) mmol/L Chloride 92 L (98-107) mmol/L Carbon Dioxide 29 (21-32) mmol/L Anion Gap 16.2 (10-20) mmol/L BUN 24 H (7-18) mg/dL Creatinine 1.1 H (0.55-1.02) mg/dL Est Cr Clr Drug Dosing TNP Estimated GFR (MDRD) 48 Glucose 120 H (74-106) mg/dL Lactic Acid 3.5 H* (0.4-2.0) mmol/L Calcium 9.0 (8.5-10.1) mg/dL Corrected Calcium 9.88 (8.5-10.1) mg/dL Total Bilirubin 2.0 H (0.2-1.0) mg/dL AST 31 (15-37) U/L ALT 21 (14-59) U/L Alkaline Phosphatase 156 H (46-116) U/L Creatine Kinase 34 (26-192) U/L Troponin I 0.099 H* (<=0.056) ng/mL C-Reactive Protein 6.5 H (<=0.9) mg/dL NT-Pro-B Natriuret Pep 67165 H (<=450) pg/mL Total Protein 7.1 (6.4-8.2) g/dL Albumin 2.9 L (3.4-5.0) g/dL Globulin 4.2 Albumin/Globulin Ratio 0.69 Urine Color (YELLOW) Urine Appearance (CLEAR) Urine pH (5.0-8.0) Ur Specific [place] Urine Protein (NEGATIVE) mg/dL Urine Glucose (UA) (NEGATIVE) mg/dL Urine Ketones (NEGATIVE) mg/dL Urine Occult Blood (NEGATIVE) Urine Nitrite (NEGATIVE) Urine Bilirubin (NEGATIVE) Urine Urobilinogen (0.2) EU/dL Ur Leukocyte Esterase (NEGATIVE) Urine RBC (NOT SEEN) /HPF Urine WBC (NOT SEEN) /HPF Ur Squamous Epith Cells (NEGATIVE) /HPF Amorphous Sediment Urine Bacteria (NEGATIVE) /HPF Urine Mucus (NEGATIVE) /LPF Ethyl Alcohol 3 (0-3) mg/dL 01/10/20 Range/Units 00:10 WBC (4.0-10.0) x10^3/uL RBC (4.00-5.50) x10^6/uL Hgb (12.0-16.0) g/dL Hct (33.0-47.0) % MCV (78.0-93.0) fL MCH (26.0-32.0) pg MCHC (32.0-36.0) g/dL RDW Coeff of Georgina (10.0-15.0) % Plt Count (130-400) x10^3/uL Add Manual Diff Neutrophils % (Manual) (50-80) % Band Neutrophils % (0-6) % Lymphocytes % (Manual) (25-50) % Monocytes % (Manual) (2-11) % Platelet Estimate Anisocytosis Sodium (136-145) mmol/L Potassium (3.5-5.1) mmol/L Chloride (98-107) mmol/L Carbon Dioxide (21-32) mmol/L Anion Gap (10-20) mmol/L BUN (7-18) mg/dL Creatinine (0.55-1.02) mg/dL Est Cr Clr Drug Dosing Estimated GFR (MDRD) Glucose (74-106) mg/dL Lactic Acid (0.4-2.0) mmol/L Calcium (8.5-10.1) mg/dL Corrected Calcium (8.5-10.1) mg/dL Total Bilirubin (0.2-1.0) mg/dL AST (15-37) U/L ALT (14-59) U/L Alkaline Phosphatase (46-116) U/L Creatine Kinase (26-192) U/L Troponin I (<=0.056) ng/mL C-Reactive Protein (<=0.9) mg/dL NT-Pro-B Natriuret Pep (<=450) pg/mL Total Protein (6.4-8.2) g/dL Albumin (3.4-5.0) g/dL Globulin Albumin/Globulin Ratio Urine Color Yellow (YELLOW) Urine Appearance Slightly cloudy H (CLEAR) Urine pH 6.0 (5.0-8.0) Ur Specific [place] 1.015 Urine Protein Negative (NEGATIVE) mg/dL Urine Glucose (UA) Negative (NEGATIVE) mg/dL Urine Ketones Negative (NEGATIVE) mg/dL Urine Occult Blood Trace-intact H (NEGATIVE) Urine Nitrite Negative (NEGATIVE) Urine Bilirubin Small H (NEGATIVE) Urine Urobilinogen 4.0 H (0.2) EU/dL Ur Leukocyte Esterase Negative (NEGATIVE) Urine RBC 5-10 H (NOT SEEN) /HPF Urine WBC 0-5 (NOT SEEN) /HPF Ur Squamous Epith Cells Moderate H (NEGATIVE) /HPF Amorphous Sediment Rare Urine Bacteria Rare (NEGATIVE) /HPF Urine Mucus Rare H (NEGATIVE) /LPF Ethyl Alcohol (0-3) mg/dL Meds: Medications Generic Name Dose Route Start Last Admin Trade Name Freq PRN Reason Stop Dose Admin Sodium Chloride 1,000 mls @ 150 mls/hr 01/10/20 01:45 01/10/20 02:07 Normal Saline IV 150 mls/hr ASDIRECTED SAMIRA Administration Vancomycin HCl 1.25 gm/ Sodium 250 mls @ 200 mls/hr 01/10/20 01:47 01/10/20 02:08 Chloride IV 01/10/20 03:01 200 mls/hr STAT ONE Administration Discontinued Medications Generic Name Dose Route Start Last Admin Trade Name Freq PRN Reason Stop Dose Admin Ceftriaxone Sodium 1 gm 01/10/20 01:22 01/10/20 01:39 Rocephin IVPUSH 01/10/20 01:23 1 gm STAT ONE Administration - Radiology Interpretation Free Text/Narrative:: X-ray of the chest per radiology shows opacification of the right lung base is slightly larger on this exam when compared to previous exam of this likely represents a combination of pleural fluid and airspace disease. CT of the head shows no acute intracranial hemorrhage small old cerebellar infarct. Cerebral volume loss. Bilateral white matter disease microvascular in nature. 1 view of the pelvis shows no pelvic fracture no left hip fracture dislocation. No right hip dislocation although due to the patient positioning femoral neck is unable to be identified. X-ray of the right hip limited exam without gross fracture identified. - Re-Assessments/Exams Free Text/Narrative Re-Assessment/Exam: 01/10/20 02:54 Initially labs were drawn. Urine per quick cath is noninfectious appearing. Does have an elevated lactic at 3.5. Has an elevated white blood cell count at 14 and a minimally elevated CRP at 17. Her worst side of his infection is as I see no overt skin infections her chest x-ray is not consistent with a pneumonia nor is her urinary exam present for infection. Blood Cultures x2. She was given Vanco and Rocephin. Her CPK is normal. She has a mildly elevated troponin at 0.09. She has denied chest pain during her stay in the emergency department as well as at home. Her creatinine is at baseline Her proBNP is quite elevated at approximately 32,000 which is quite elevated than any proBNP that she has had in the past. I really not finding the cause of her infection at this time. But with his elevated lactic and white blood cell count I have concern for some type of infection or other process going on. It is unlikely that the congestive heart failure is causing all the symptoms to include the change in her mentation as well as the lactic acidosis and leukocytosis. She clearly has new onset atrial fibrillation as well. Although it is in a controlled rate. I called and spoke with Dr. Moyer at [facility]. HPI ER COURSE findings and concerns were relayed to him verbally over the phone. No new orders were received and he accepted the patient in transfer at this time. Departure - Departure Time of Disposition: 01:50 Disposition: DC/Tfer to [facility] Clinical Impression: Elevated troponin, CHF, Congestive heart failure, Weakness, Hypokalemia, Lactic acidosis COPD (chronic obstructive pulmonary disease) Qualifiers: COPD type: unspecified COPD Qualified Code(s): J44.9 - Chronic obstructive pulmonary disease, unspecified Atrial fibrillation Qualifiers: Atrial fibrillation type: unspecified Qualified Code(s): I48.91 - Unspecified atrial fibrillation Leukocytosis Qualifiers: Leukocytosis type: unspecified Qualified Code(s): D72.829 - Elevated white blood cell count, unspecified - Discharge Information Forms: ED Department Discharge, Interfacility Transfer [facility] Sepsis Event Note (ED) - Focused Exam Vital Signs: Vital Signs Temp Pulse Resp BP Pulse Ox 01/10/20 00:15 96.6 F L 96 18 162/100 H 92 L - My Orders Last 24 Hours: My Active Orders 01/09/20 23:39 EKG Documentation Completion [RC] STAT Head wo Cont [CT] Stat 01/09/20 23:40 Pelvis 1V or 2V [CR] Stat 01/09/20 23:52 Chest 1V Frontal [CR] Stat 01/10/20 00:11 Hip Min 2V or 3V Rt [CR] Stat 01/10/20 01:25 Blood Culture x2 Reflex Set [OM.PC] Stat 01/10/20 01:40 CULTURE BLOOD [BC] Stat 01/10/20 01:45 CULTURE BLOOD [BC] Stat Sodium Chloride 0.9% [Normal Saline] 1,000 ml IV ASDIRECTED 01/10/20 01:47 Vancomycin 1.25 gm Sodium Chloride 0.9% [Normal Saline (AdvBag)] 250 ml IV STAT - Assessment/Plan Last 24 Hours: My Active Orders 01/09/20 23:39 EKG Documentation Completion [RC] STAT Head wo Cont [CT] Stat 01/09/20 23:40 Pelvis 1V or 2V [CR] Stat 01/09/20 23:52 Chest 1V Frontal [CR] Stat 01/10/20 00:11 Hip Min 2V or 3V Rt [CR] Stat 01/10/20 01:25 Blood Culture x2 Reflex Set [OM.PC] Stat 01/10/20 01:40 CULTURE BLOOD [BC] Stat 01/10/20 01:45 CULTURE BLOOD [BC] Stat Sodium Chloride 0.9% [Normal Saline] 1,000 ml IV ASDIRECTED 01/10/20 01:47 Vancomycin 1.25 gm Sodium Chloride 0.9% [Normal Saline (AdvBag)] 250 ml IV STAT
[2020-01-10] MEDS: Sodium Chloride 0.9% 1,000 ML IV SCH (02:07)
[2020-01-10 02:41] VITALS: BP 127/41; PULSE 98
--- NOTE | 2020-01-10 07:47 | CR ---
[id number] RAD/RAD Chest PA or AP 1V EXAM: FRONTAL CHEST INDICATION: Worsening shortness of breath. COMPARISON: November 23, 2019. DISCUSSION: There is cardiomegaly with increased mild central vascular congestion. Stable small left and increased small to moderate right pleural effusion. Right middle and lower lobe atelectasis/continued follow-up is suggested. Arterial calcifications. IMPRESSION: 1. Cardiomegaly with increased mild central vascular congestion, stable small left and increased small to moderate pleural effusions. 2. Persistent right middle and lower lobe atelectasis. Tani Mehta MD 01/10/20 0747 Thank you for allowing us to participate in the care of your patient.
--- NOTE | 2020-01-10 07:53 | CR ---
[id number] RAD/RAD Pelvis 1-2V; [id number] RAD/RAD Hip Right 2-3V EXAM: AP PELVIS, 2 VIEWS RIGHT HIP CLINICAL DATA: FALL, BILATERAL PELVIS PAIN COMPARISON: None. FINDINGS: Portable technique, patient positioning and soft tissue attenuation somewhat limit this assessment. Within this limitation, no fracture or dislocation is identified. There is mild osteoarthritis in both hips and sacroiliac joints. Lower lumbar spondylosis. Aortobiiliac stents. Overlying the left pelvis just above the hip joint there is a nonspecific 43 x 22 mm calcification or radiopaque structure, correlate with exam or cross-sectional imaging. Arterial calcifications. IMPRESSION: 1. No acute findings. Technically limited study, consider CT or MRI if there is continued clinical concern. Tani Mehta MD 01/10/20 0752 Thank you for allowing us to participate in the care of your patient.
--- NOTE | 2020-01-10 07:57 | CT ---
[id number] CT/CT Head WO IV EXAM: NONCONTRAST HEAD CT INDICATION: Altered level of consciousness COMPARISON: February 20, 2019. DISCUSSION: There is moderate generalized atrophy. Moderate multifocal white matter hypoattenuation is nonspecific, but generally ascribed to chronic small vessel ischemia. No mass effect or midline shift. No acute hemorrhage or extra-axial fluid collection. Chronic bilateral PICA cerebellar infarcts. No acute territorial infarct is identified. A limited look at the orbits and paranasal sinuses is unremarkable. IMPRESSION: 1. No acute findings. 2. Small chronic bilateral cerebellar infarcts. 3. Volume loss and chronic small vessel ischemic changes. Tani Mehta MD 01/10/20 0756 Thank you for allowing us to participate in the care of your patient.
--- NOTE | 2020-01-10 12:00 | CR ---
[id number] RAD/RAD Pelvis 1-2V; [id number] RAD/RAD Hip Right 2-3V EXAM: AP PELVIS, 2 VIEWS RIGHT HIP CLINICAL DATA: FALL, BILATERAL PELVIS PAIN COMPARISON: None. FINDINGS: Portable technique, patient positioning and soft tissue attenuation somewhat limit this assessment. Within this limitation, no fracture or dislocation is identified. There is mild osteoarthritis in both hips and sacroiliac joints. Lower lumbar spondylosis. Aortobiiliac stents. Overlying the left pelvis just above the hip joint there is a nonspecific 43 x 22 mm calcification or radiopaque structure, correlate with exam or cross-sectional imaging. Arterial calcifications. IMPRESSION: 1. No acute findings. Technically limited study, consider CT or MRI if there is continued clinical concern. Tani Mehta MD 01/10/20 1200 Thank you for allowing us to participate in the care of your patient.
== END 2020-01-10 02:55 | disposition short-term general hospital (02) ==
LOC: VM.ED 23:21 → SUPCPDRO 23:21 → VM.ED 01-10 02:55
DX: E87.6 Hypokalemia (principal); J44.9 Chronic obstructive pulmonary disease, unspecified; R79.89 Other specified abnormal findings of blood chemistry; I11.0 Hypertensive heart disease with heart failure; I50.9 Heart failure, unspecified; E87.2 Acidosis; I48.91 Unspecified atrial fibrillation; D72.828 Other elevated white blood cell count; E78.00 Pure hypercholesterolemia, unspecified; M06.9 Rheumatoid arthritis, unspecified; E66.9 Obesity, unspecified; Z79.82 Long term (current) use of aspirin; Z79.02 Long term (current) use of antithrombotics/antiplatelets; Z79.899 Other long term (current) drug therapy
CPT/HCPCS: 36415; 70450; 71045; 72170; 73502; 80053; 80307; 81001; 82550; 83605; 83880; 84484; 85025; 86140; 87040; 87077; 93005; 96365; 96375; 99285; J0696; J3370; J7030; J7050; 93010; 99284

== ENCOUNTER 2020-06-24 01:09 | Emergency (ER) | payer MEDICARE ==
--- NOTE | 2020-06-24 01:39 | EDM.PDOC ---
ED HPI GENERAL MEDICAL PROBLEM - General Chief Complaint: Head Injury Stated Complaint: Trauma / Fall Time Seen by Provider: 06/24/20 01:09 Source of Information: Reports: Patient History Limitations: Reports: No Limitations - History of Present Illness INITIAL COMMENTS - FREE TEXT/NARRATIVE: Pt. presents to ER as a trauma code at the request of EMS. Pt. fell at home tonight, stiking her head on the corner of a table. She does not recall the event. She was found by her son. According to EMS and patient, they think that she spent about 3.5 hours on the floor. She is not sure if she became lightheaded or short of breath prior to the fall. Pt. is currently on plavix. She has a history of numerous chronic medical conditions, including CAD, severe COPD with frequent exacerbations, HTN, carotid artery stenosis, PVD, previous AAA, and tobacco use disorder. Pt. denies any increased shortness of breath. She was wheezing and congested on arrival to ER, but she states that she has not been experiencing any recent cough, fever, or chills. She did sustain a laceration to ER head which was bandaged by EMS. She appears to have lost a significant amount of blood. She also is complaining of R hip pain. Denies any chest or abdominal discomfort. Onset: Today Onset Date: 06/23/20 Onset Time: 21:00 Location: Reports: Head, Lower Extremity, Right Associated Symptoms: Reports: Confusion. Denies: Chest Pain, Cough, Diaphoresis, Fever/Chills, Nausea/Vomiting, Seizure - Related Data Allergies Allergy/AdvReac Type Severity Reaction Status Date / Time No Known Allergies Allergy Verified 01/10/20 01:25 Home Meds: Home Meds Potassium Chloride [Klor-Con M10] 10 meq PO DAILY 11/10/15 [History] Simvastatin 40 mg PO DAILY 11/10/15 [History] amLODIPine [Norvasc] 5 mg PO DAILY 11/10/15 [History] Aspirin [Adult Aspirin] 81 mg PO DAILY 06/02/18 [History] Furosemide [Lasix] 20 mg PO DAILY 02/20/19 [History] Albuterol/Ipratropium [DuoNeb 3.0-0.5 MG/3 ML] 3 ml IH Q6H PRN 09/19/19 [History] Arformoterol [Brovana] 1 puff INH BID 09/19/19 [History] Budesonide [Pulmicort] 0.5 mg IH BID 09/19/19 [History] Clobetasol/Emollient [Temovate E 0.05% Crm] 30 gm TOP BID 09/19/19 [History] Clopidogrel Bisulfate [Plavix] 75 mg PO DAILY 09/19/19 [History] Sennosides/Docusate Sodium [Senna-Docusate Sodium Tablet] 2 each PO DAILY 09/19/19 [History] Travoprost [Travatan Z] 5 ml EYEBOTH BEDTIME 09/19/19 [History] Past Medical History Cardiovascular History: Reports: Aneurysm, High Cholesterol, Hypertension, Stents Respiratory History: Reports: COPD Gastrointestinal History: Reports: Diverticulosis Genitourinary History: Reports: Other (See Below) Other Genitourinary History: stress incontinence Musculoskeletal History: Reports: RA Endocrine/Metabolic History: Reports: Obesity/BMI 30+ - Past Surgical History HEENT Surgical History: Reports: Tonsillectomy Cardiovascular Surgical History: Reports: Aneurysm, Carotid Stents, Other (See Below) GI Surgical History: Reports: Colostomy Social & Family History - Family History Family Medical History: No Pertinent Family History - Caffeine Use Caffeine Use: Reports: Tea ED ROS GENERAL - Review of Systems Review Of Systems: See Below Constitutional: Reports: No Symptoms HEENT: Reports: Other (scalp laceration) Respiratory: Reports: Wheezing, Other (chest congestion) Cardiovascular: Reports: No Symptoms Endocrine: Reports: No Symptoms GI/Abdominal: Reports: No Symptoms. Denies: Abdominal Pain, Black Stool, Bloody Stool, Diarrhea, Distension, Melena, Nausea, Vomiting Musculoskeletal: Reports: Joint Pain (R hip pain) Skin: Reports: No Symptoms Neurological: Reports: No Symptoms Psychiatric: Reports: No Symptoms Hematologic/Lymphatic: Reports: No Symptoms ED EXAM, GENERAL - Physical Exam Exam: See Below Exam Limited By: Altered Mental Status (Alert on arrival. Unable to recall events leading up to/during the incident.) General Appearance: Alert, No Apparent Distress Eye Exam: Bilateral Eye: EOMI, Normal Fundi, Normal Inspection Ears: Normal External Exam, Normal Canal, Hearing Grossly Normal, Normal TMs Ear Exam: Bilateral Ear: Auricle Normal, Canal Normal, TM normal Nose: Normal Inspection, No Blood Throat/Mouth: Normal Lips, Normal Voice, No Airway Compromise Head: Other (1.5 CM laceration and contusion/large hematoma noted to occiput.) Neck: Normal Inspection, Supple, Non-Tender, Full Range of Motion Respiratory/Chest: No Respiratory Distress, No Accessory Muscle Use, Rhonchi (Ronchi/coarse lung sounds in all benavidez. Air entry is symmetrical. ) Cardiovascular: Normal Peripheral Pulses, Regular Rate, Rhythm, No Edema Peripheral Pulses: 4+: Radial (R) GI/Abdominal: Soft, Non-Tender, No Distention, No Mass Back Exam: Normal Inspection, Full Range of Motion Extremities: Other (Pain in R inguinal area. Pt. has her leg bent and refuses to straighten it due to pain. She does have point tenderness on palpation of the area.) Neurological: Alert, CN II-XII Intact, Normal Cognition, Normal Reflexes, No Motor/Sensory Deficits, Other (Confused about events leading up to/post fall. Able to recall medical history. Alert to self and place.) Psychiatric: Normal Affect, Normal Mood Skin Exam: Warm, Dry, Intact, Pallor Lymphatic: No Adenopathy ED GENERAL MEDICAL PROCEDURES - Laceration/Wound Repair Posterior Head Lac/wound length in cm: 1.5 Appearance: Subcutaneous Skin Prep: Chlorhexidine (Hibiciens), Saline Suture Size: 4-0 Progress/Comments: Arterial bleed noted from scalp laceration to occiput. Hair was matted and covered in clotted blood, making it difficult to find laceration. Skin was shaved. A total of 4 skin courtney was placed along the laceration. Large mass of hematoma surrounds the laceration. a vertical 4-0 nylon retention suture was also placed perpendicular to courtney to stop this bleeding. #1 Interpretation Rhythm: NSR [place]: Normal P-Wave: Present QRS: Normal ST-T: Normal QT: Normal Course - Orders/Labs/Meds Orders: Active Orders 24 hr Category Date Time Status EKG Documentation Completion [RC] STAT Care 06/24/20 01:15 Active Vaccines to be Administered [RC] PER UNIT ROUTINE Care 06/24/20 02:11 Active Cervical Spine wo Cont [CT] Stat Exams 06/24/20 01:22 Ordered Chest 1V Frontal [CR] Stat Exams 06/24/20 01:24 Ordered Head wo Cont [CT] Stat Exams 06/24/20 01:11 Ordered Hip Min 1V Rt [CR] Stat Exams 06/24/20 01:23 Ordered CULTURE BLOOD [BC] Stat Lab 06/24/20 01:32 Results CULTURE BLOOD [BC] Stat Lab 06/24/20 01:37 Results Morphine Med 06/24/20 02:50 Once 4 mg IVPUSH ONETIME ONE Blood Culture x2 Reflex Set [OM.PC] Stat Oth 06/24/20 01:29 Ordered Labs: Laboratory Tests 06/24/20 06/24/20 06/24/20 Range/Units 01:32 01:32 01:32 WBC 11.0 H (4.0-10.0) x10^3/uL RBC 4.20 (4.00-5.50) x10^6/uL Hgb 12.8 D (12.0-16.0) g/dL Hct 40.0 (33.0-47.0) % MCV 95.2 H D (78.0-93.0) fL MCH 30.5 (26.0-32.0) pg MCHC 32.0 (32.0-36.0) g/dL RDW Coeff of Georgina 15.2 H (10.0-15.0) % Plt Count 191 (130-400) x10^3/uL Neut % (Auto) 85.9 H (50.0-80.0) % Lymph % (Auto) 7.5 L (25.0-50.0) % Rolette % (Auto) 6.4 (2.0-11.0) % Eos % (Auto) 0.1 (0.0-4.0) % Baso % (Auto) 0.1 L (0.2-1.2) % PT 11.0 (9.9-12.5) SEC INR 1.0 L (2.0-3.5) APTT 22.7 L (25.6-32.8) SEC Sodium 135 L (136-145) mmol/L Potassium 3.6 (3.5-5.1) mmol/L Chloride 95 L (98-107) mmol/L Carbon Dioxide 25 (21-32) mmol/L Anion Gap 18.6 H (5-15) mmol/L BUN 13 (7-18) mg/dL Creatinine 0.7 (0.55-1.02) mg/dL Est Cr Clr Drug Dosing TNP Estimated GFR (MDRD) > 60 Glucose 134 H (74-106) mg/dL Lactic Acid (0.4-2.0) mmol/L Calcium 9.0 (8.5-10.1) mg/dL Corrected Calcium 9.64 (8.5-10.1) mg/dL Total Bilirubin 0.6 (0.2-1.0) mg/dL AST 20 (15-37) U/L ALT 21 (14-59) U/L Alkaline Phosphatase 159 H (46-116) U/L Creatine Kinase (26-192) U/L Troponin I < 0.017 (<=0.056) ng/mL C-Reactive Protein (<=0.9) mg/dL Total Protein 7.6 (6.4-8.2) g/dL Albumin 3.2 L (3.4-5.0) g/dL Globulin 4.4 Albumin/Globulin Ratio 0.73 Ethyl Alcohol (0-3) mg/dL 06/24/20 06/24/20 Range/Units 01:32 01:32 WBC (4.0-10.0) x10^3/uL RBC (4.00-5.50) x10^6/uL Hgb (12.0-16.0) g/dL Hct (33.0-47.0) % MCV (78.0-93.0) fL MCH (26.0-32.0) pg MCHC (32.0-36.0) g/dL RDW Coeff of Georgina (10.0-15.0) % Plt Count (130-400) x10^3/uL Neut % (Auto) (50.0-80.0) % Lymph % (Auto) (25.0-50.0) % [place] % (Auto) (2.0-11.0) % Eos % (Auto) (0.0-4.0) % Baso % (Auto) (0.2-1.2) % PT (9.9-12.5) SEC INR (2.0-3.5) APTT (25.6-32.8) SEC Sodium (136-145) mmol/L Potassium (3.5-5.1) mmol/L Chloride (98-107) mmol/L Carbon Dioxide (21-32) mmol/L Anion Gap (5-15) mmol/L BUN (7-18) mg/dL Creatinine (0.55-1.02) mg/dL Est Cr Clr Drug Dosing Estimated GFR (MDRD) Glucose (74-106) mg/dL Lactic Acid 4.8 H* (0.4-2.0) mmol/L Calcium (8.5-10.1) mg/dL Corrected Calcium (8.5-10.1) mg/dL Total Bilirubin (0.2-1.0) mg/dL AST (15-37) U/L ALT (14-59) U/L Alkaline Phosphatase (46-116) U/L Creatine Kinase 45 (26-192) U/L Troponin I (<=0.056) ng/mL C-Reactive Protein 0.8 (<=0.9) mg/dL Total Protein (6.4-8.2) g/dL Albumin (3.4-5.0) g/dL Globulin Albumin/Globulin Ratio Ethyl Alcohol 131 H (0-3) mg/dL Meds: Medications Discontinued Medications Generic Name Dose Route Start Last Admin Trade Name Freq PRN Reason Stop Dose Admin Diphtheria/Tetanus/Acell Pertussis 0.5 ml 06/24/20 02:11 06/24/20 02:16 Boostrix IM 06/24/20 02:12 0.5 ml .ONCE ONE Administration - Radiology Interpretation Free Text/Narrative:: CT brain and c-spine were negative. R hip radiograph shows impacted femoral neck fracture. No pneumothorax or pulmonary contusion. Age indeterminate R posterior rib fractures. Departure - Departure Time of Disposition: 02:56 Disposition: DC/Tfer to Acute Hospital 02 Clinical Impression: Scalp laceration, Hip fracture - Discharge Information Forms: ED Department Discharge - Problem List Review Problem List Initiated/Reviewed/Updated: Yes - My Orders Last 24 Hours: My Active Orders 06/24/20 01:11 Head wo Cont [CT] Stat 06/24/20 01:15 EKG Documentation Completion [RC] STAT 06/24/20 01:22 Cervical Spine wo Cont [CT] Stat 06/24/20 01:23 Hip Min 1V Rt [CR] Stat 06/24/20 01:24 Chest 1V Frontal [CR] Stat 06/24/20 01:29 Blood Culture x2 Reflex Set [OM.PC] Stat 06/24/20 01:32 CULTURE BLOOD [BC] Stat 06/24/20 01:37 CULTURE BLOOD [BC] Stat 06/24/20 02:11 Vaccines to be Administered [RC] PER UNIT ROUTINE 06/24/20 02:50 Morphine 4 mg IVPUSH ONETIME ONE - Assessment/Plan Last 24 Hours: My Active Orders 06/24/20 01:11 Head wo Cont [CT] Stat 06/24/20 01:15 EKG Documentation Completion [RC] STAT 06/24/20 01:22 Cervical Spine wo Cont [CT] Stat 06/24/20 01:23 Hip Min 1V Rt [CR] Stat 06/24/20 01:24 Chest 1V Frontal [CR] Stat 06/24/20 01:29 Blood Culture x2 Reflex Set [OM.PC] Stat 06/24/20 01:32 CULTURE BLOOD [BC] Stat 06/24/20 01:37 CULTURE BLOOD [BC] Stat 06/24/20 02:11 Vaccines to be Administered [RC] PER UNIT ROUTINE 06/24/20 02:50 Morphine 4 mg IVPUSH ONETIME ONE Plan: Pt. will be transferred to [facility] ER. Pt. was accepted by Dr. Moyer. Pain was controlled with IV morphine. Tetanus was updated. She was given a gram of ancef IV. Son called and was notified of the plan of care. EMS states that he was intoxicated on scene and won't be accompanying patient. Pt. is also intoxicated but was able to provide consent for treatment and transfer. All images were forwarded to [facility] PAC[facility].
[2020-06-24 02:05] LABS: ANION GAP 18.6 mmol/L (5-15); CHLORIDE,CL 95 mmol/L (98-107); SODIUM,NA 135 mmol/L (136-145)
[2020-06-24 02:06] LABS: PTT,PARTIAL THROMBOPLSTIN TIME 22.7 SEC (25.6-32.8)
[2020-06-24] MEDS: Diphtheria,Pertussis(Acell),Tetanus Vaccine 0.5 ML Syringe IM ONE (02:16)
[2020-06-24] MEDS: Morphine 4 MG/ML Syringe IVPUSH ONE ×2 (03:12)
--- NOTE | 2020-06-24 09:18 | CR ---
[id number] RAD/RAD Chest PA or AP 1V EXAM: RAD Chest PA or AP 1V INDICATION: FALL, CHEST CONGESTION. COMPARISON: January 09, 2020 DISCUSSION: Cardiomediastinal silhouette is normal in size and contour. No effusion, pneumothorax, or edema. Pulmonary hyperinflation. Bibasilar subsegmental atelectasis and/or scarring. Age-indeterminate sixth rib fracture on the right. IMPRESSION: No definite acute cardiopulmonary findings. Reggie Duckworth DO 06/24/20 0916 Thank you for allowing us to participate in the care of your patient.
--- NOTE | 2020-06-24 09:42 | CT ---
[id number] CT/CT Head WO IV EXAM: NONCONTRAST HEAD CT INDICATION: TRAUMA CODE - FELL, HIT HEAD. COMPARISON: 01/09/2020. DISCUSSION: Generalized parenchymal atrophy with scattered areas of nonspecific white matter disease, commonly seen as sequela of chronic microvascular ischemia. No mass effect or midline shift. No acute hemorrhage or extra-axial fluid collection. Chronic bilateral PICA cerebellar infarcts. No acute territorial infarct is identified. Overall these findings are not seen with changed when compared to the prior. A limited look at the orbits and paranasal sinuses is unremarkable. Trace bilateral mastoid effusions. Right occipital scalp hematoma without underlying calvarial fracture. IMPRESSION: 1. No acute intracranial findings. 2. Small chronic bilateral cerebellar infarcts. Reggie Duckworth DO 06/24/20 0941 Thank you for allowing us to participate in the care of your patient.
--- NOTE | 2020-06-24 09:55 | CT ---
[id number] CT/CT Cervical Spine WO IV Exam: CT Cervical Spine WO IV Clinical Data: TRAUMA COMPARISON: NO PREVIOUS SIMILAR EXAM IS AVAILABLE FINDINGS: No fracture or subluxation is seen There are degenerative changes There is slight anterior positioning of C4 on C5 on a degenerative basis The prevertebral soft tissues are unremarkable A left carotid artery stent is seen IMPRESSION: NO FRACTURE OR SUBLUXATION Bryant Thompson MD 06/24/20 0954 Thank you for allowing us to participate in the care of your patient.
--- NOTE | 2020-06-24 10:00 | CR ---
[id number] RAD/RAD Hip Right 1V EXAM: RAD Hip Right 1V CLINICAL DATA: TRAUMA COMPARISON: CORRELATION IS MADE WITH 2019 FINDINGS: A displaced right subcapital femoral neck fracture is seen. IMPRESSION: RIGHT HIP FRACTURE DESCRIBED Bryant Thompson MD 06/24/20 0958 Thank you for allowing us to participate in the care of your patient.
== END 2020-06-24 03:23 | disposition short-term general hospital (02) ==
LOC: VM.ED 01:09 → SUPCPDRO 01:09 → VM.ED 03:23
DX: S72.011A Unspecified intracapsular fracture of right femur, initial encounter for closed fracture (principal); S01.01XA Laceration without foreign body of scalp, initial encounter; E78.00 Pure hypercholesterolemia, unspecified; I10 Essential (primary) hypertension; J44.9 Chronic obstructive pulmonary disease, unspecified; M06.9 Rheumatoid arthritis, unspecified; E66.9 Obesity, unspecified; Z79.82 Long term (current) use of aspirin; Z23 Encounter for immunization; Z79.02 Long term (current) use of antithrombotics/antiplatelets; W22.8XXA Striking against or struck by other objects, initial encounter; Y92.009 Unspecified place in unspecified non-institutional (private) residence as the place of occurrence of the external cause
CPT/HCPCS: 12001; 36415; 70450; 71045; 72125; 80053; 80307; 82550; 83605; 84484; 85025; 85610; 85730; 86140; 87040; 90715; 93005; 93010; 99284; J2270

== ENCOUNTER 2020-09-29 16:49 | Observation (INO) | payer MEDICARE, MEDICAID ==
[2020-09-29 18:09] LABS: ANION GAP 15.7 mmol/L (5-15)
--- NOTE | 2020-09-29 18:39 | EDM.PDOC ---
ED HPI GENERAL MEDICAL PROBLEM - General Chief Complaint: General Stated Complaint: fall Time Seen by Provider: 09/29/20 17:00 Source of Information: Reports: Patient History Limitations: Reports: No Limitations - History of Present Illness INITIAL COMMENTS - FREE TEXT/NARRATIVE: Patient comes emergency department today from home by ambulance with concerns of a fall. This patient is an oxygen dependent COPD patient who typically uses a wheelchair most the time to get around in her house. Tonight she had what she relates as her "couple of drinks" of alcoholic beverages. When she was trying to walk she lost her balance and fell injuring her right hand. She did not hit her head. She has no head neck or back pain her tetanus immunization was about 5 years ago. She had no weakness dizziness lightheadedness palpitations or syncope prior to her fall. She relates it is more of a mechanical fall that she tripped and fell landing on her right hand. She is able to flex and extend her fingers appropriately. She has no pain to her hand. No Covid exposure no Covid symptoms. She is unsure if she got her Covid vaccine - Related Data Allergies Allergy/AdvReac Type Severity Reaction Status Date / Time No Known Allergies Allergy Verified 09/29/20 17:19 Home Meds: Home Meds Potassium Chloride [Klor-Con M10] 10 meq PO DAILY 11/10/15 [History] Simvastatin 40 mg PO DAILY 11/10/15 [History] amLODIPine [Norvasc] 5 mg PO DAILY 11/10/15 [History] Aspirin [Adult Aspirin] 81 mg PO DAILY 06/02/18 [History] Furosemide [Lasix] 20 mg PO DAILY 02/20/19 [History] Albuterol/Ipratropium [DuoNeb 3.0-0.5 MG/3 ML] 3 ml IH Q6H PRN 09/19/19 [History] Arformoterol [Brovana] 1 puff INH BID 09/19/19 [History] Budesonide [Pulmicort] 0.5 mg IH BID 09/19/19 [History] Clobetasol/Emollient [Temovate E 0.05% Crm] 30 gm TOP BID 09/19/19 [History] Clopidogrel Bisulfate [Plavix] 75 mg PO DAILY 09/19/19 [History] Sennosides/Docusate Sodium [Senna-Docusate Sodium Tablet] 2 each PO DAILY 09/19/19 [History] Travoprost [Travatan Z] 5 ml EYEBOTH BEDTIME 09/19/19 [History] traMADol HCl [Tramadol HCl] 50 mg PO Q6H PRN #20 tablet 08/29/20 [Rx] Past Medical History Cardiovascular History: Reports: Aneurysm, High Cholesterol, Hypertension, Stents Respiratory History: Reports: COPD Gastrointestinal History: Reports: Diverticulosis Genitourinary History: Reports: Other (See Below) Other Genitourinary History: stress incontinence Musculoskeletal History: Reports: RA Endocrine/Metabolic History: Reports: Obesity/BMI 30+ - Past Surgical History HEENT Surgical History: Reports: Tonsillectomy Cardiovascular Surgical History: Reports: Aneurysm, Carotid Stents, Other (See Below) Other Cardiovascular Surgeries/Procedures: Has stent in leg and heart. Has sleeve on aneurysm GI Surgical History: Reports: Colostomy Female Surgical History: Reports: Tubal Ligation Social & Family History - Family History Family Medical History: No Pertinent Family History - Tobacco Use Tobacco Use Status *Q: Current Every Day Tobacco User Years of Tobacco use: 61 Packs/Tins Daily: 1 - Caffeine Use Caffeine Use: Reports: Tea - Alcohol Use Days Per Week of Alcohol Use: 7 Number of Drinks Per Day: 2 Total Drinks Per Week: 14 Date of Last Drink: 09/29/20 - Recreational Drug Use Recreational Drug Use: No ED ROS GENERAL - Review of Systems Review Of Systems: Comprehensive ROS is negative, except as noted in HPI. ED EXAM, GENERAL - Physical Exam Exam: See Below Exam Limited By: No Limitations General Appearance: Alert, WD/WN, No Apparent Distress Eye Exam: Bilateral Eye: EOMI, PERRL Ears: Normal External Exam Nose: Normal Inspection Throat/Mouth: Normal Inspection Head: Atraumatic, Normocephalic Neck: Normal Inspection, Supple, Non-Tender, Full Range of Motion. No: Tender Lateral, Tender Midline Respiratory/Chest: No Respiratory Distress, Lungs Clear, Normal Breath Sounds, No Accessory Muscle Use, Chest Non-Tender Cardiovascular: Normal Peripheral Pulses, Regular Rate, Rhythm, No Murmur Peripheral Pulses: 2+: Radial (L), Radial (R), Posterior Tibial (L), Posterior Tibial (R), Dorsalis Pedis (L), Dorsalis Pedis (R) GI/Abdominal: Normal Bowel Sounds, Soft, Non-Tender, Pelvis Stable (Female) Exam: Deferred Rectal (Female) Exam: Deferred Back Exam: Normal Inspection, Full Range of Motion. No: Paraspinal Tenderness, Vertebral Tenderness Extremities: Normal Inspection (except on her right MCP joint there is a very small skin tear about the size of pee. No bony deformity able to flex and extend at all the joints of the finger and cms intact. Rest of the hand is unremarkable and rest of the extremities are unremarkable. ), Normal Range of Motion, Normal Capillary Refill Neurological: Alert, Oriented, CN II-XII Intact, Normal Cognition, Normal Gait, Normal Reflexes, No Motor/Sensory Deficits Psychiatric: Normal Affect, Normal Mood Skin Exam: Warm, Dry, Intact, Normal Color, No Rash Course - Vital Signs Last Recorded V/S: Last Vital Signs Temp 98.2 F 09/30/20 05:08 Pulse 89 09/30/20 05:08 Resp 18 09/30/20 05:08 BP 133/71 09/30/20 08:10 Pulse Ox 88 L 09/30/20 07:47 - Orders/Labs/Meds Labs: Laboratory Tests 09/29/20 09/29/20 Range/Units 17:38 17:38 WBC 7.8 (4.0-10.0) x10^3/uL RBC 4.13 (4.00-5.50) x10^6/uL Hgb 13.5 (12.0-16.0) g/dL Hct 42.2 (33.0-47.0) % MCV 102.2 H D (78.0-93.0) fL MCH 32.7 H (26.0-32.0) pg MCHC 32.0 (32.0-36.0) g/dL RDW Coeff of Georgina 14.6 (10.0-15.0) % Plt Count 264 (130-400) x10^3/uL Neut % (Auto) 65.0 (50.0-80.0) % Lymph % (Auto) 21.9 L (25.0-50.0) % [place] % (Auto) 9.7 (2.0-11.0) % Eos % (Auto) 3.0 (0.0-4.0) % Baso % (Auto) 0.4 (0.2-1.2) % Sodium 138 (136-145) mmol/L Potassium 4.7 (3.5-5.1) mmol/L Chloride 102 (98-107) mmol/L Carbon Dioxide 25 (21-32) mmol/L Anion Gap 15.7 H (5-15) mmol/L BUN 13 (7-18) mg/dL Creatinine 1.0 (0.55-1.02) mg/dL Est Cr Clr Drug Dosing 33.30 mL/min Estimated GFR (MDRD) 54 Glucose 105 H (70-99) mg/dL Calcium 9.4 (8.5-10.1) mg/dL Corrected Calcium 9.9 (8.5-10.1) mg/dL Total Bilirubin 0.4 (0.2-1.0) mg/dL AST 32 (15-37) U/L ALT 27 (14-59) U/L Alkaline Phosphatase 173 H (46-116) U/L Total Protein 7.5 (6.4-8.2) g/dL Albumin 3.4 (3.4-5.0) g/dL Globulin 4.1 Albumin/Globulin Ratio 0.83 Ethyl Alcohol 238 H (0-3) mg/dL Meds: Medications Discontinued Medications Generic Name Dose Route Start Last Admin Trade Name Freq PRN Reason Stop Dose Admin Albuterol/Ipratropium 3 ml 09/29/20 23:12 Albuterol/Ipratropium 3.0-0.5 Mg/3 Ml Neb Soln NEB Q6H PRN Wheezing Amlodipine Besylate 5 mg 09/30/20 08:00 09/30/20 08:10 Amlodipine 5 Mg Tab PO 5 mg DAILY SAMIRA Administration Arformoterol Tartrate 15 mcg 09/30/20 07:00 09/30/20 07:40 Arformoterol 15 Mcg/2 Ml Neb Soln INH 15 mcg BIDRT SAMIRA Administration Aspirin 81 mg 09/30/20 08:00 09/30/20 08:09 Aspirin 81 Mg Tab.Ec PO 81 mg DAILY SAMIRA Administration Budesonide 0.5 mg 09/30/20 08:00 09/30/20 07:40 Budesonide 0.5 Mg/2 Ml Neb Susp INH 0.5 mg BID SAMIRA Administration Clopidogrel Bisulfate 75 mg 09/30/20 08:00 09/30/20 08:09 Clopidogrel 75 Mg Tab PO 75 mg DAILY SAMIRA Administration Furosemide 20 mg 09/30/20 08:00 09/30/20 08:09 Furosemide 40 Mg Tab PO 20 mg DAILY SAMIRA Administration Latanoprost 0 ml 09/30/20 20:00 Latanoprost 0.005% Ophth Soln 2.5 Ml Bottle .XX BEDTIME SAIMRA Potassium Chloride 10 meq 09/30/20 08:00 09/30/20 08:10 Potassium Chloride 10 Meq Tab.Er PO 10 meq DAILY SAMIRA Administration Senna/Docusate Sodium 1 tab 09/30/20 08:00 09/30/20 08:09 Docusate Sodium/Sennosides 50-8.6 Mg Tab PO 1 tab DAILY SAMIRA Administration Simvastatin 40 mg 09/30/20 08:00 09/30/20 08:09 Simvastatin 20 Mg Tab PO 40 mg DAILY SAMIRA Administration - Re-Assessments/Exams Free Text/Narrative Re-Assessment/Exam: Laboratory evaluation her CBC is pretty unremarkable with a WBC of 7.8, hemoglobin 13.5, platelet count 264. CMP with a glucose of 105 alk phos 173. Her blood alcohol is 238. Her Covid test is negative. The skin tear on the hand was repaired with Steri-Strips. She does not want an x-ray nor do I feel that she needs to have one as there is no bony deformity swelling or tenderness and she can move her hand appropriately. She does live at home alone and she has no family members and she is quite intoxicated tonight with a blood alcohol at 238. [address] will place her in observation for tonight as this 80-year-old female who lives at home by herself should not be discharged alone and being this intoxicated. She is understanding of this and her questions were answered. Departure - Departure Time of Disposition: 18:37 Disposition: Refer to Observation Clinical Impression: Acute alcohol intoxication Qualifiers: Complication of substance-induced condition: uncomplicated Qualified Code(s): F10.920 - Alcohol use, unspecified with intoxication, uncomplicated Skin tear of hand without complication Qualifiers: Encounter type: initial encounter Laterality: right Qualified Code(s): S61.411A - Laceration without foreign body of right hand, initial encounter - Discharge Information Sepsis Event Note (ED) - Evaluation Sepsis Screening Result: No Definite Risk - Problem List & Annotations (1) Acute alcohol intoxication SNOMED Code(s): 01916031, 50546490 Code(s): F10.929 - ALCOHOL USE, UNSPECIFIED WITH INTOXICATION, UNSPECIFIED Status: Acute Qualifiers: Complication of substance-induced condition: uncomplicated Qualified Code(s): F10.920 - Alcohol use, unspecified with intoxication, uncomplicated (2) Skin tear of right hand without complication SNOMED Code(s): 468440735, 578120569 Code(s): S61.411A - LACERATION WITHOUT FOREIGN BODY OF RIGHT HAND, INIT ENCNTR Status: Acute Qualifiers: Encounter type: initial encounter Qualified Code(s): S61.411A - Laceration without foreign body of right hand, initial encounter (3) COPD (chronic obstructive pulmonary disease) SNOMED Code(s): 52440127 Code(s): J44.9 - CHRONIC OBSTRUCTIVE PULMONARY DISEASE, UNSPECIFIED Status: Chronic Priority: Medium Qualifiers: COPD type: unspecified COPD Qualified Code(s): J44.9 - Chronic obstructive pulmonary disease, unspecified (4) CAD (coronary artery disease) SNOMED Code(s): 54902753 Code(s): I25.10 - ATHSCL HEART DISEASE OF [place] CORONARY ARTERY W/O ANG PCTRS Status: Chronic Priority: Medium Qualifiers: Coronary Disease-Associated Artery/Lesion type: unspecified vessel or lesion type [place] vs. transplanted heart: hoh heart Associated angina: without angina Qualified Code(s): I25.10 - Atherosclerotic heart disease of hoh coronary artery without angina pectoris - Problem List Review Problem List Initiated/Reviewed/Updated: Yes - Assessment/Plan Admission H&P: Please use this note as an admission H&P Assessment:: A/P 1: Acute alcohol intoxication. We are unable to discharge this 80-year-old female home by herself because of her acute alcohol intoxication. We will place her under observation throughout the night. Recheck her alcohol in the morning. Has no history of withdrawal symptoms. 2: Fall mechanical this was most likely due to her chronic physical deconditioning as well as her alcohol intoxication she has no complaints will recheck in the morning. 3: Skin tear to the right hand. Tetanus utd steri-stripped in the ED. Chronic COPD CAD HTN and CHF monitor continue home therapies nothing concerns and at baseline at this time. VTE: Short Stay no need for prophylaxis Sepsis: Labs okay no fever monitor. Code level 1. We will admit the patient into the hospital for observation for tonight due to her alcohol intoxication and unable to be discharged home by herself. We will repeat her labs in the morning to ensure that her alcohol is negative. She has no other complaints needs or concerns at this time. Should be able to discharge her in the morning.
[2020-09-29] MEDS ORDERED: Albuterol/Ipratropium 3.0-0.5 MG/3 ML Neb Soln NEB PRN (23:12)
[2020-09-30 05:10] VITALS: PULSE 89
[2020-09-30 07:11] LABS: CHLORIDE,CL 102 mmol/L (98-107); SODIUM,NA 138 mmol/L (136-145)
[2020-09-30 07:22] LABS: ANION GAP 16.6 mmol/L (5-15)
[2020-09-30] MEDS: Arformoterol 15 MCG/2 ML Neb Soln INH SCH (07:40)
[2020-09-30] MEDS: Budesonide 0.5 MG/2 ML Neb Susp INH SCH (07:40)
--- NOTE | 2020-09-30 08:03 | PCM.DCSUM1 ---
Discharge Summary - Hospital Course HPI Initial Comments: Patient was admitted into the hospital under observation due to acute alcohol intoxication fall at home and she was unable to be discharged by herself to home. She had no complaints upon arrival other than a skin tear to her right hand. She slept throughout the night and really does not have any concerns or complaints today. Diagnosis: Stroke: No - Discharge Data Discharge Date: 09/30/20 Discharge Disposition: Home, Self-Care 01 Condition: Good - Referral to Home Health Primary Care Physician: Tessa Tamayo NP - Patient Summary/Data Hospital Course: Patient was admitted into the hospital after she came from home to the emergency department with a fall and alcohol intoxication. Patient had a small skin tear on her right hand that was repaired with Steri-Strips. Her alcohol was 238 and she lives at home alone and she is 80 years old and there was no one to be with her tonight. So we had to admit her into the hospital purely for her to sober up so that we could discharge her in the morning. She has no history of alcohol withdrawal symptoms. Her fall was mechanical she was walking tripped and fell. She did not injure anything other than a small skin tear to the right MCP joint. She had no head neck or back pain. There was no loss of conscious. She was alert and oriented x3. She rested throughout the night without any complaints or concerns. We continued her home medications for her multiple chronic medical problems. She is uninterested in assistance with her alcohol usage. She was discharged home. - Patient Instructions Other/Special Instructions: Home today. Continue your previous medications. Abstain from alcohol usage. Recheck with PCP one week. - Discharge Plan *PRESCRIPTION DRUG MONITORING PROGRAM REVIEWED*: Not Applicable *COPY OF PRESCRIPTION DRUG MONITORING REPORT IN PATIENT SUPRIYA: Not Applicable Home Medications: Home Meds Potassium Chloride [Klor-Con M10] 10 meq PO DAILY 11/10/15 [History] Simvastatin 40 mg PO DAILY 11/10/15 [History] amLODIPine [Norvasc] 5 mg PO DAILY 11/10/15 [History] Aspirin [Adult Aspirin] 81 mg PO DAILY 06/02/18 [History] Furosemide [Lasix] 20 mg PO DAILY 02/20/19 [History] Albuterol/Ipratropium [DuoNeb 3.0-0.5 MG/3 ML] 3 ml IH Q6H PRN 09/19/19 [History] Arformoterol [Brovana] 1 puff INH BID 09/19/19 [History] Budesonide [Pulmicort] 0.5 mg IH BID 09/19/19 [History] Clobetasol/Emollient [Temovate E 0.05% Crm] 30 gm TOP BID 09/19/19 [History] Clopidogrel Bisulfate [Plavix] 75 mg PO DAILY 09/19/19 [History] Sennosides/Docusate Sodium [Senna-Docusate Sodium Tablet] 2 each PO DAILY 09/19/19 [History] Travoprost [Travatan Z] 5 ml EYEBOTH BEDTIME 09/19/19 [History] traMADol HCl [Tramadol HCl] 50 mg PO Q6H PRN #20 tablet 08/29/20 [Rx] Patient Handouts: Alcohol Intoxication, [id number], Nonsutured Laceration Care Forms: ED Department Discharge Referrals: Tessa Tamayo [employer] [Primary Care Provider] - - Discharge Summary/Plan Comment DC Time >30 min.: Yes - General Info Date of Service: 09/30/20 Admission Dx/Problem (Free Text: Acute alcohol intoxication Fall mechanical SKin tear. Subjective Update: Patient slept well throughout the night. She has no complaints this morning. She feels ready to go home. She has been eating and drinking appropriately. She denies any pain to her hand. No change in the functionality of her hand. Functional Status: Reports: Pain Controlled, Ambulating. Denies: New Symptoms - Review of Systems General: Reports: No Symptoms HEENT: Reports: No Symptoms Pulmonary: Reports: No Symptoms Cardiovascular: Reports: No Symptoms Gastrointestinal: Reports: No Symptoms Genitourinary: Reports: No Symptoms Musculoskeletal: Reports: No Symptoms Skin: Reports: No Symptoms Neurological: Reports: No Symptoms Psychiatric: Reports: No Symptoms - Patient Data Vitals - Most Recent: Last Vital Signs Temp 98.2 F 09/30/20 05:08 Pulse 89 09/30/20 05:08 Resp 18 09/30/20 05:08 BP 138/71 09/30/20 05:08 Pulse Ox 88 L 09/30/20 07:47 Weight - Most Recent: 155 lb I&O - Last 24 hours: Intake & Output 09/29/20 09/30/2009/30/21 22:59 06:59 14:59 Intake Total 100 Output Total 200 Balance -100 Lab Results - Last 24 hrs: Laboratory Results - last 24 hr 09/29/20 09/29/20 09/29/20 Range/Units 17:38 17:38 23:17 WBC 7.8 (4.0-10.0) x10^3/uL RBC 4.13 (4.00-5.50) x10^6/uL Hgb 13.5 (12.0-16.0) g/dL Hct 42.2 (33.0-47.0) % MCV 102.2 H D (78.0-93.0) fL MCH 32.7 H (26.0-32.0) pg MCHC 32.0 (32.0-36.0) g/dL RDW Coeff of Georgina 14.6 (10.0-15.0) % Plt Count 264 (130-400) x10^3/uL Neut % (Auto) 65.0 (50.0-80.0) % Lymph % (Auto) 21.9 L (25.0-50.0) % [place] % (Auto) 9.7 (2.0-11.0) % Eos % (Auto) 3.0 (0.0-4.0) % Baso % (Auto) 0.4 (0.2-1.2) % Sodium 138 (136-145) mmol/L Potassium 4.7 (3.5-5.1) mmol/L Chloride 102 (98-107) mmol/L Carbon Dioxide 25 (21-32) mmol/L Anion Gap 15.7 H (5-15) mmol/L BUN 13 (7-18) mg/dL Creatinine 1.0 (0.55-1.02) mg/dL Est Cr Clr Drug Dosing 33.30 mL/min Estimated GFR (MDRD) 54 Glucose 105 H (70-99) mg/dL Calcium 9.4 (8.5-10.1) mg/dL Corrected Calcium 9.9 (8.5-10.1) mg/dL Total Bilirubin 0.4 (0.2-1.0) mg/dL AST 32 (15-37) U/L ALT 27 (14-59) U/L Alkaline Phosphatase 173 H (46-116) U/L Total Protein 7.5 (6.4-8.2) g/dL Albumin 3.4 (3.4-5.0) g/dL Globulin 4.1 Albumin/Globulin Ratio 0.83 Ethyl Alcohol 238 H (0-3) mg/dL SARS CoV-2 RNA Rapid NASREEN Negative (NEGATIVE) 09/30/20 09/30/20 Range/Units 06:25 06:25 WBC 10.3 H (4.0-10.0) x10^3/uL RBC 4.14 (4.00-5.50) x10^6/uL Hgb 13.6 (12.0-16.0) g/dL Hct 41.7 (33.0-47.0) % MCV 100.7 H (78.0-93.0) fL MCH 32.9 H (26.0-32.0) pg MCHC 32.6 (32.0-36.0) g/dL RDW Coeff of [place] 14.7 (10.0-15.0) % Plt Count 297 (130-400) x10^3/uL Neut % (Auto) 63.1 (50.0-80.0) % Lymph % (Auto) 22.1 L (25.0-50.0) % [place] % (Auto) 12.5 H (2.0-11.0) % Eos % (Auto) 2.1 (0.0-4.0) % Baso % (Auto) 0.2 (0.2-1.2) % Sodium 138 (136-145) mmol/L Potassium 4.6 (3.5-5.1) mmol/L Chloride 102 (98-107) mmol/L Carbon Dioxide 24 (21-32) mmol/L Anion Gap 16.6 H (5-15) mmol/L BUN 15 (7-18) mg/dL Creatinine 0.9 (0.55-1.02) mg/dL Est Cr Clr Drug Dosing 42.61 mL/min Estimated GFR (MDRD) > 60 Glucose 109 H (70-99) mg/dL Calcium 9.7 (8.5-10.1) mg/dL Corrected Calcium (8.5-10.1) mg/dL Total Bilirubin (0.2-1.0) mg/dL AST (15-37) U/L ALT (14-59) U/L Alkaline Phosphatase (46-116) U/L Total Protein (6.4-8.2) g/dL Albumin (3.4-5.0) g/dL Globulin Albumin/Globulin Ratio Ethyl Alcohol < 3 (0-3) mg/dL SARS CoV-2 RNA Rapid NASREEN (NEGATIVE) Med Orders - Current: Current Medications Albuterol/Ipratropium (Albuterol/Ipratropium 3.0-0.5 Mg/3 Ml Neb Soln) 3 ml NEB Q6H PRN PRN Reason: Wheezing Amlodipine Besylate (Amlodipine 5 Mg Tab) 5 mg PO DAILY SAMIRA Arformoterol Tartrate (Arformoterol 15 Mcg/2 Ml Neb Soln) 15 mcg INH BIDRT SAMIRA Last Admin: 09/30/20 07:40 Dose: 15 mcg Documented by: Aspirin (Aspirin 81 Mg Tab.Ec) 81 mg PO DAILY SAMIRA Budesonide (Budesonide 0.5 Mg/2 Ml Neb Susp) 0.5 mg INH BID SAMIRA Last Admin: 09/30/20 07:40 Dose: 0.5 mg Documented by: Clopidogrel Bisulfate (Clopidogrel 75 Mg Tab) 75 mg PO DAILY SAMIRA Furosemide (Furosemide 40 Mg Tab) 20 mg PO DAILY SAMIRA Latanoprost (Latanoprost 0.005% Ophth Soln 2.5 Ml Bottle) 0 ml .XX BEDTIME SAMIRA Potassium Chloride (Potassium Chloride 10 Meq Tab.Er) 10 meq PO DAILY SAMIRA Senna/Docusate Sodium (Docusate Sodium/Sennosides 50-8.6 Mg Tab) 1 tab PO DAILY SAMIRA Simvastatin (Simvastatin 20 Mg Tab) 40 mg PO DAILY [facility] Comments:: labs good today. ALcohol negative. - Exam Quality Assessment: Reports: Supplemental Oxygen (Chronically on 2 L at home.) General: Reports: Alert, Oriented HEENT: Reports: Pupils Equal, Pupils Reactive Neck: Reports: Supple Lungs: Reports: Normal Respiratory Effort, Wheezing (She does have some bilateral expiratory wheezing. She is currently getting her morning nebulizers for her chronic COPD.). Denies: Decreased Breath Sounds Cardiovascular: Reports: Irregular Rhythm GI/Abdominal Exam: Normal Bowel Sounds, Soft, Non-Tender (Female) Exam: Deferred Rectal (Female) Exam: Deferred Back Exam: Reports: Normal Inspection, Full Range of Motion. Denies: Paraspinal Tenderness, Vertebral Tenderness Extremities: Normal Inspection (The skin tear on the right dorsal hand on the MCP joint is well approximated. She is able to flex and extend appropriately. There is no bruising swelling ecchymosis bony deformities tenderness or pain.), Normal Range of Motion, Non-Tender, No Pedal Edema, Normal Capillary Refill Skin: Reports: Warm, Dry, Intact Wound/Incisions: Reports: Healing Well, Dressing Dry and Intact, No Drainage. Denies: Erythema Neurological: Reports: No New Focal Deficit Psy/Mental Status: Reports: Alert, Normal Affect, Normal Mood
[2020-09-30] MEDS: Clopidogrel 75 MG Tab PO SCH (08:09)
[2020-09-30] MEDS: Furosemide 40 MG Tab PO SCH (08:09)
[2020-09-30] MEDS: Simvastatin 20 MG Tab PO SCH (08:09)
[2020-09-30] MEDS: Aspirin 81 MG Tab.EC PO SCH (08:09)
[2020-09-30] MEDS: Potassium Chloride 10 MEQ Tab.ER PO SCH (08:10)
[2020-09-30] MEDS: amLODIPine 5 MG Tab PO SCH (08:10)
[2020-09-30 08:11] VITALS: BP 133/71
[2020-09-30] MEDS ORDERED: Latanoprost 0.005% Ophth Soln 2.5 ML Bottle SCH (20:00)
== END 2020-09-30 11:00 | disposition home or self-care (01) ==
LOC: VM.ED 16:49 → VM.MS 20:37
PROVIDERS: ADMIT Nurse Practitioner Family; ATTEND Nurse Practitioner Family
DX: F10.920 Alcohol use, unspecified with intoxication, uncomplicated (principal); S61.411A Laceration without foreign body of right hand, initial encounter; J44.9 Chronic obstructive pulmonary disease, unspecified; I25.10 Atherosclerotic heart disease of native coronary artery without angina pectoris; I11.0 Hypertensive heart disease with heart failure; I50.9 Heart failure, unspecified; Z20.822 Contact with and (suspected) exposure to COVID-19; Y90.7 Blood alcohol level of 200-239 mg/100 ml; Z79.899 Other long term (current) drug therapy; W19.XXXA Unspecified fall, initial encounter
CPT/HCPCS: 36415; 80048; 80053; 80307; 85025; 94640; 94760; 99285; A9270; G0378; U0002

== ENCOUNTER 2020-12-29 18:08 | Inpatient (IN) | payer MEDICARE, MEDICAID ==
[2020-12-29] MEDS ORDERED: Sodium Chloride 0.9% 1,000 ML IV ONE (18:27)
--- NOTE | 2020-12-29 18:33 | EDM.PDOC ---
ED HPI GENERAL MEDICAL PROBLEM - General Chief Complaint: General Stated Complaint: FALL Time Seen by Provider: 12/29/20 18:20 Source of Information: Reports: Patient, EMS History Limitations: Reports: No Limitations - History of Present Illness INITIAL COMMENTS - FREE TEXT/NARRATIVE: Patient was brought to the emergency room secondary to a call from EMS by her son after the patient was try to get out of her chair and slid forward. EMS found her laying on the floor. Patient states she was this week and her walker slipped forward and she gave out and eased down to the floor. Patient admits that she is bedbound and does not know why she was trying to get up. She has no complaints at this time states she is in no pain Per EMS via the son he wanted her to come in to get checked out and also have a decubitus ulcer looked at that is been going on for the last year. Patient appears slightly emaciated in various stages of ecchymosis across the body including 1 on the left lateral orbit several across the lower extremities Patient has dry mucous membranes and a fissured tongue noted questionable fecal matter on the feet Onset: Today Duration: Minutes: Associated Symptoms: Reports: No Other Symptoms - Related Data Allergies Allergy/AdvReac Type Severity Reaction Status Date / Time No Known Allergies Allergy Verified 12/29/20 18:43 Home Meds: Home Meds Potassium Chloride [Klor-Con M10] 10 meq PO DAILY 11/10/15 [History] Simvastatin 40 mg PO DAILY 11/10/15 [History] amLODIPine [Norvasc] 5 mg PO DAILY 11/10/15 [History] Aspirin [Adult Aspirin] 81 mg PO DAILY 06/02/18 [History] Furosemide [Lasix] 20 mg PO DAILY 02/20/19 [History] Albuterol/Ipratropium [DuoNeb 3.0-0.5 MG/3 ML] 3 ml IH Q6H PRN 09/19/19 [History] Arformoterol [Brovana] 1 puff INH BID 09/19/19 [History] Budesonide [Pulmicort] 0.5 mg IH BID 09/19/19 [History] Clobetasol/Emollient [Temovate E 0.05% Crm] 30 gm TOP BID 09/19/19 [History] Clopidogrel Bisulfate [Plavix] 75 mg PO DAILY 09/19/19 [History] Sennosides/Docusate Sodium [Senna-Docusate Sodium Tablet] 2 each PO DAILY 09/19/19 [History] Travoprost [Travatan Z] 5 ml EYEBOTH BEDTIME 09/19/19 [History] traMADol HCl [Tramadol HCl] 50 mg PO Q6H PRN #20 tablet 08/29/20 [Rx] Past Medical History Cardiovascular History: Reports: Aneurysm, High Cholesterol, Hypertension, Stents Respiratory History: Reports: COPD Gastrointestinal History: Reports: Diverticulosis Genitourinary History: Reports: Other (See Below) Other Genitourinary History: stress incontinence Musculoskeletal History: Reports: RA Endocrine/Metabolic History: Reports: Obesity/BMI 30+ - Past Surgical History HEENT Surgical History: Reports: Tonsillectomy Cardiovascular Surgical History: Reports: Aneurysm, Carotid Stents, Other (See Below) Other Cardiovascular Surgeries/Procedures: Has stent in leg and heart. Has sleeve on aneurysm GI Surgical History: Reports: Colostomy Female Surgical History: Reports: Tubal Ligation Social & Family History - Family History Family Medical History: No Pertinent Family History - Caffeine Use Caffeine Use: Reports: Coffee ED ROS GENERAL - Review of Systems Review Of Systems: See Below Constitutional: Reports: No Symptoms HEENT: Reports: No Symptoms Respiratory: Reports: No Symptoms Cardiovascular: Reports: No Symptoms Endocrine: Reports: No Symptoms GI/Abdominal: Reports: No Symptoms : Reports: No Symptoms Musculoskeletal: Reports: No Symptoms Skin: Reports: No Symptoms Neurological: Reports: No Symptoms Psychiatric: Reports: No Symptoms Hematologic/Lymphatic: Reports: No Symptoms Immunologic: Reports: No Symptoms ED EXAM, GENERAL - Physical Exam Exam: See Below Exam Limited By: No Limitations General Appearance: Alert, WD/WN, No Apparent Distress, Other (Patient is alert and oriented x2 she does not know the location where she is at she knows she is in the hospital though. She follows all commands answers other questions appropriately) Eye Exam: Bilateral Eye: EOMI, Normal Inspection, PERRL Ears: Normal External Exam, Normal Canal, Hearing Grossly Normal, Normal TMs Nose: Normal Inspection, Normal Mucosa, No Blood Throat/Mouth: Normal Inspection, Normal Lips, Normal Teeth, Normal Gums, Normal Oropharynx, Normal Voice, No Airway Compromise, Other (Fissured tongue dry mucous membranes) Head: Atraumatic, Normocephalic Neck: Normal Inspection, Supple, Non-Tender, Full Range of Motion, Other (No midline tenderness palpation neck full range of motion) Respiratory/Chest: No Respiratory Distress, Lungs Clear, Normal Breath Sounds, No Accessory Muscle Use, Chest Non-Tender, Other (Patient is oxygen dependent at home states she still smokes 1 pack/day) Cardiovascular: Normal Peripheral Pulses, No Edema, No Gallop, No JVD, No Murmur, No Rub GI/Abdominal: Normal Bowel Sounds, Soft, Non-Tender, No Distention. No: Guarding, Rigid, Rebound, Tender Back Exam: Normal Inspection Extremities: Normal Inspection, Normal Range of Motion, Non-Tender, No Pedal Edema, Normal Capillary Refill, Other (No pedal edema noted patient has 4 out of 5 upper lower extremity) Neurological: Alert, Oriented, CN II-XII Intact, Normal Cognition Psychiatric: Normal Affect, Normal Mood Skin Exam: Warm, Dry, Intact, Normal Color, No Rash, Ecchymosis #1 Interpretation EKG Date: 12/29/20 Rhythm: A-Fib Course - Vital Signs Text/Narrative:: We will check CBC BMP EKG Patient given 500 normal saline bolus Patient has multiple stages of decubitus ulcers around the sacrum number of 3 that are open Potassium of 1.7 mag 1.1 EKG A. fib chronic Patient will be admitted to [facility] Last Recorded V/S: Last Vital Signs Temp 36.6 C 12/29/20 18:43 Pulse 71 12/29/20 18:43 Resp 28 H 12/29/20 18:43 BP 128/73 12/29/20 18:40 Pulse Ox 94 L 12/29/20 18:43 - Orders/Labs/Meds Orders: Active Orders 24 hr Category Date Time Status EKG 12 Lead [EKG Documentation Completion] [RC] STAT Care 12/29/20 18:56 Ordered UA W/MICROSCOPIC [URIN] Stat Lab 12/29/20 18:56 Ordered Dextrose 5%-1/2 NS w/ 20 mEq/L KCl @ 125 mL/Hr (1000 mL Med 12/29/20 19:15 Ordered ) D5 1/2 NS w/ 20 mEq/L KCl 1,000 ml IV ASDIRECTED Medication Orders Potassium Chloride/Dextrose/Sod Cl (D5 1/2 Ns W/ 20 Meq/L Kcl) 1,000 mls @ 125 mls/hr IV ASDIRECTED SAMIRA Last Admin: 12/29/20 19:18 Dose: 125 mls/hr Documented by: SOFÍA Labs: Laboratory Tests 12/29/20 12/29/20 12/29/20 Range/Units 18:34 18:34 18:34 WBC 11.5 H (4.0-10.0) x10^3/uL RBC 4.39 (4.00-5.50) x10^6/uL Hgb 13.6 (12.0-16.0) g/dL Hct 41.2 (33.0-47.0) % MCV 93.8 H (78.0-93.0) fL MCH 31.0 (26.0-32.0) pg MCHC 33.0 (32.0-36.0) g/dL RDW Coeff of Georgina 13.1 (10.0-15.0) % Plt Count 276 (130-400) x10^3/uL Immature Gran % (Auto) 1.00 H (0.00-0.43) % Neut % (Auto) 79.2 (50.0-80.0) % Lymph % (Auto) 10.3 L (25.0-50.0) % [place] % (Auto) 9.3 (2.0-11.0) % Eos % (Auto) 0.1 (0.0-4.0) % Baso % (Auto) 0.1 L (0.2-1.2) % Neut # (Auto) 9.1 H (1.8-7.7) x10^3/uL Lymph # (Auto) 1.2 (1.0-4.8) x10^3/uL [place] # (Auto) 1.1 H (0.0-0.8) x10^3/uL Eos # (Auto) 0.0 (0.0-0.5) x10^3/uL Baso # (Auto) 0.0 (0.0-0.2) x10^3/uL Immature Gran # (Auto) 0.11 H (0.00-0.07) x10^3/uL Sodium 133 L (136-145) mmol/L Potassium 1.7 L* D (3.5-5.1) mmol/L Chloride 82 L D (98-107) mmol/L Carbon Dioxide 43 H D (21-32) mmol/L Anion Gap 9.7 (5-15) mmol/L BUN 14 (7-18) mg/dL Creatinine 0.8 (0.55-1.02) mg/dL Est Cr Clr Drug Dosing 47.94 mL/min Estimated GFR (MDRD) > 60 Glucose 108 H (70-99) mg/dL Calcium 8.3 L (8.5-10.1) mg/dL Magnesium 1.1 L (1.8-2.4) mg/dL SARS CoV-2 RNA Rapid NASREEN (NEGATIVE) 12/29/20 Range/Units 19:25 WBC (4.0-10.0) x10^3/uL RBC (4.00-5.50) x10^6/uL Hgb (12.0-16.0) g/dL Hct (33.0-47.0) % MCV (78.0-93.0) fL MCH (26.0-32.0) pg MCHC (32.0-36.0) g/dL RDW Coeff of Georgina (10.0-15.0) % Plt Count (130-400) x10^3/uL Immature Gran % (Auto) (0.00-0.43) % Neut % (Auto) (50.0-80.0) % Lymph % (Auto) (25.0-50.0) % [place] % (Auto) (2.0-11.0) % Eos % (Auto) (0.0-4.0) % Baso % (Auto) (0.2-1.2) % Neut # (Auto) (1.8-7.7) x10^3/uL Lymph # (Auto) (1.0-4.8) x10^3/uL [place] # (Auto) (0.0-0.8) x10^3/uL Eos # (Auto) (0.0-0.5) x10^3/uL Baso # (Auto) (0.0-0.2) x10^3/uL Immature Gran # (Auto) (0.00-0.07) x10^3/uL Sodium (136-145) mmol/L Potassium (3.5-5.1) mmol/L Chloride (98-107) mmol/L Carbon Dioxide (21-32) mmol/L Anion Gap (5-15) mmol/L BUN (7-18) mg/dL Creatinine (0.55-1.02) mg/dL Est Cr Clr Drug Dosing mL/min Estimated GFR (MDRD) Glucose (70-99) mg/dL Calcium (8.5-10.1) mg/dL Magnesium (1.8-2.4) mg/dL SARS CoV-2 RNA Rapid NASREEN Negative (NEGATIVE) Meds: Medications Generic Name Dose Route Start Last Admin Trade Name Freq PRN Reason Stop Dose Admin Potassium Chloride/Dextrose/Sod Cl 1,000 mls @ 125 mls/hr 12/29/20 19:15 12/29/20 19:18 D5 1/2 Ns W/ 20 Meq/L Kcl IV 125 mls/hr ASDIRECTED SAMIRA Administration Discontinued Medications Generic Name Dose Route Start Last Admin Trade Name Freq PRN Reason Stop Dose Admin Sodium Chloride 1,000 mls @ 500 mls/hr 12/29/20 18:27 12/29/20 18:39 Normal Saline IV 12/29/20 20:26 500 mls/hr ONETIME ONE Administration Magnesium Oxide 400 mg 12/29/20 19:00 12/29/20 19:20 Magnesium Oxide 400 Mg Tab PO 12/29/20 19:01 400 mg ONETIME ONE Administration Potassium Chloride 20 meq 12/29/20 18:56 12/29/20 19:20 Potassium Chloride 10% 20 Meq/15 Ml Soln 15 Ml Ud Cup PO 12/29/20 18:57 20 meq ONETIME ONE Administration Departure - Departure Time of Disposition: 19:35 Disposition: Admitted As Inpatient 68 Condition: Fair Clinical Impression: Dehydration, Hypokalemia, Hypomagnesemia, Emaciation - Discharge Information *PRESCRIPTION DRUG MONITORING PROGRAM REVIEWED*: No *COPY OF PRESCRIPTION DRUG MONITORING REPORT IN PATIENT SUPRIYA: No Referrals: Tessa Tamayo NP [Primary Care Provider] - Forms: ED Department Discharge Sepsis Event Note (ED) - Focused Exam Vital Signs: Vital Signs Temp Pulse Resp BP Pulse Ox 12/29/20 18:43 36.6 C 71 28 H 94 L 12/29/20 18:40 36.9 C 84 28 H 128/73 93 L - Problem List & Annotations (1) Dehydration SNOMED Code(s): 56655540 Code(s): E86.0 - DEHYDRATION Status: Acute Current Visit: Yes (2) Emaciation SNOMED Code(s): 668918636 Code(s): E43 - UNSPECIFIED SEVERE PROTEIN-CALORIE MALNUTRITION Status: Acute Current Visit: Yes (3) Hypokalemia SNOMED Code(s): 15850571 Code(s): E87.6 - HYPOKALEMIA Status: Acute Current Visit: Yes (4) Hypomagnesemia SNOMED Code(s): 899239193 Code(s): E83.42 - HYPOMAGNESEMIA Status: Acute Current Visit: Yes (5) Atrial fibrillation SNOMED Code(s): 37852288 Code(s): I48.91 - UNSPECIFIED ATRIAL FIBRILLATION Status: Acute Current Visit: No Qualifiers: Atrial fibrillation type: unspecified Qualified Code(s): I48.91 - Unspecified atrial fibrillation - My Orders Last 24 Hours: My Active Orders 12/29/20 18:56 EKG 12 Lead [EKG Documentation Completion] [RC] STAT UA W/MICROSCOPIC [URIN] Stat 12/29/20 19:15 Dextrose 5%-1/2 NS w/ 20 mEq/L KCl @ 125 mL/Hr (1000 mL) D5 1/2 NS w/ 20 mEq/L KCl 1,000 ml IV ASDIRECTED - Assessment/Plan Last 24 Hours: My Active Orders 12/29/20 18:56 EKG 12 Lead [EKG Documentation Completion] [RC] STAT UA W/MICROSCOPIC [URIN] Stat 12/29/20 19:15 Dextrose 5%-1/2 NS w/ 20 mEq/L KCl @ 125 mL/Hr (1000 mL) D5 1/2 NS w/ 20 mEq/L KCl 1,000 ml IV ASDIRECTED
[2020-12-29 18:53] LABS: CHLORIDE,CL 82 mmol/L (98-107); SODIUM,NA 133 mmol/L (136-145)
[2020-12-29 18:55] LABS: ANION GAP 9.7 mmol/L (5-15)
[2020-12-29] MEDS ORDERED: Potassium Chloride 10% 20 MEQ/15 ML Soln 15 ML UD Cup PO ONE (18:56)
[2020-12-29] MEDS ORDERED: Magnesium Oxide 400 MG Tab PO ONE (19:00)
[2020-12-29] MEDS: D5 1/2 NS w/ 20 mEq/L KCl 1,000 ML IV SCH (19:18)
[2020-12-29] MEDS ORDERED: Albuterol/Ipratropium 3.0-0.5 MG/3 ML Neb Soln INH PRN (20:51)
[2020-12-29] MEDS ORDERED: Potassium Chloride Riders 20 MEQ in Premix Bag 1 BAG IV SCH (21:00)
--- NOTE | 2020-12-29 21:11 | PCM.HP.2 ---
H&P History of Present Illness - General Date of Service: 12/29/20 Admit Problem/Dx: Admission Diagnosis/Problem Admission Diagnosis/Problem Hypokalemia 80 year old female presented to ER via ambulance after having fallen at home. Patient states she tripped and feel forward, hitting her head. Denies LOC. Denies pain. Pt noted to be covered in dried feces. Has open sores on buttocks. Has a dressing on her right buttock that she states her son changes for her "almost every day." Source of Information: Patient, Old Records - Related Data Allergies/Adverse Reactions: Allergies Allergy/AdvReac Type Severity Reaction Status Date / Time No Known Allergies Allergy Verified 12/29/20 18:43 Home Medications: Home Meds Potassium Chloride [Klor-Con M10] 10 meq PO DAILY 11/10/15 [History] Simvastatin 40 mg PO DAILY 11/10/15 [History] amLODIPine [Norvasc] 5 mg PO DAILY 11/10/15 [History] Aspirin [Adult Aspirin] 81 mg PO DAILY 06/02/18 [History] Furosemide [Lasix] 20 mg PO DAILY 02/20/19 [History] Albuterol/Ipratropium [DuoNeb 3.0-0.5 MG/3 ML] 3 ml IH Q6H PRN 09/19/19 [History] Arformoterol [Brovana] 1 puff INH BID 09/19/19 [History] Budesonide [Pulmicort] 0.5 mg IH BID 09/19/19 [History] Clobetasol/Emollient [Temovate E 0.05% Crm] 30 gm TOP BID 09/19/19 [History] Clopidogrel Bisulfate [Plavix] 75 mg PO DAILY 09/19/19 [History] Sennosides/Docusate Sodium [Senna-Docusate Sodium Tablet] 2 each PO DAILY 09/19/19 [History] Travoprost [Travatan Z] 5 ml EYEBOTH BEDTIME 09/19/19 [History] traMADol HCl [Tramadol HCl] 50 mg PO Q6H PRN #20 tablet 08/29/20 [Rx] Past Medical History Cardiovascular History: Reports: Aneurysm, High Cholesterol, Hypertension, Stents Respiratory History: Reports: COPD Gastrointestinal History: Reports: Diverticulosis Genitourinary History: Reports: Other (See Below) Other Genitourinary History: stress incontinence Musculoskeletal History: Reports: RA Endocrine/Metabolic History: Reports: Obesity/BMI 30+ - Past Surgical History HEENT Surgical History: Reports: Tonsillectomy Cardiovascular Surgical History: Reports: Aneurysm, Carotid Stents, Other (See Below) Other Cardiovascular Surgeries/Procedures: Has stent in leg and heart. Has sleeve on aneurysm GI Surgical History: Reports: Colostomy Female Surgical History: Reports: Tubal Ligation Social & Family History - Family History Family Medical History: No Pertinent Family History - Tobacco Use Tobacco Use Status *Q: Current Every Day Tobacco User Years of Tobacco use: 50 Packs/Tins Daily: 1 - Caffeine Use Caffeine Use: Reports: Coffee - Alcohol Use Days Per Week of Alcohol Use: 2 Number of Drinks Per Day: 1 Total Drinks Per Week: 2 - Recreational Drug Use Recreational Drug Use: No H&P Review of Systems - Review of Systems: Review Of Systems: See Below General: Denies: Fever, Chills HEENT: Reports: No Symptoms Pulmonary: Reports: Shortness of Breath (States this is baseline) Cardiovascular: Denies: Chest Pain Gastrointestinal: Denies: Abdominal Pain, Diarrhea, Nausea, Vomiting Genitourinary: Denies: Dysuria Musculoskeletal: Reports: Back Pain Skin: Reports: Wound Exam - Exam Exam: See Below - Vital Signs Vital Signs: Last Vital Signs Temp 36.6 C 12/29/20 18:43 Pulse 71 12/29/20 18:43 Resp 28 H 12/29/20 18:43 BP 128/73 12/29/20 18:40 Pulse Ox 94 L 12/29/20 18:43 Weight: 69.4 kg - Exam Quality Assessment: Supplemental Oxygen General: Alert, Oriented, Cooperative HEENT: Conjunctiva Clear Neck: Supple Lungs: Decreased Breath Sounds Cardiovascular: Irregular Rhythm GI/Abdominal Exam: Normal Bowel Sounds, Soft Back Exam: Other (RIght buttock with large deep ulceration) Extremities: No Pedal Edema - Patient Data Lab Results Last 24 hrs: Laboratory Results - last 24 hr 12/29/20 12/29/20 12/29/20 Range/Units 18:34 18:34 18:34 WBC 11.5 H (4.0-10.0) x10^3/uL RBC 4.39 (4.00-5.50) x10^6/uL Hgb 13.6 (12.0-16.0) g/dL Hct 41.2 (33.0-47.0) % MCV 93.8 H (78.0-93.0) fL MCH 31.0 (26.0-32.0) pg MCHC 33.0 (32.0-36.0) g/dL RDW Coeff of Georgina 13.1 (10.0-15.0) % Plt Count 276 (130-400) x10^3/uL Immature Gran % (Auto) 1.00 H (0.00-0.43) % Neut % (Auto) 79.2 (50.0-80.0) % Lymph % (Auto) 10.3 L (25.0-50.0) % [place] % (Auto) 9.3 (2.0-11.0) % Eos % (Auto) 0.1 (0.0-4.0) % Baso % (Auto) 0.1 L (0.2-1.2) % Neut # (Auto) 9.1 H (1.8-7.7) x10^3/uL Lymph # (Auto) 1.2 (1.0-4.8) x10^3/uL [place] # (Auto) 1.1 H (0.0-0.8) x10^3/uL Eos # (Auto) 0.0 (0.0-0.5) x10^3/uL Baso # (Auto) 0.0 (0.0-0.2) x10^3/uL Immature Gran # (Auto) 0.11 H (0.00-0.07) x10^3/uL Sodium 133 L (136-145) mmol/L Potassium 1.7 L* D (3.5-5.1) mmol/L Chloride 82 L D (98-107) mmol/L Carbon Dioxide 43 H D (21-32) mmol/L Anion Gap 9.7 (5-15) mmol/L BUN 14 (7-18) mg/dL Creatinine 0.8 (0.55-1.02) mg/dL Est Cr Clr Drug Dosing 47.94 mL/min Estimated GFR (MDRD) > 60 Glucose 108 H (70-99) mg/dL Calcium 8.3 L (8.5-10.1) mg/dL Magnesium 1.1 L (1.8-2.4) mg/dL SARS CoV-2 RNA Rapid NASREEN (NEGATIVE) 12/29/20 Range/Units 19:25 WBC (4.0-10.0) x10^3/uL RBC (4.00-5.50) x10^6/uL Hgb (12.0-16.0) g/dL Hct (33.0-47.0) % MCV (78.0-93.0) fL MCH (26.0-32.0) pg MCHC (32.0-36.0) g/dL RDW Coeff of Georgina (10.0-15.0) % Plt Count (130-400) x10^3/uL Immature Gran % (Auto) (0.00-0.43) % Neut % (Auto) (50.0-80.0) % Lymph % (Auto) (25.0-50.0) % [place] % (Auto) (2.0-11.0) % Eos % (Auto) (0.0-4.0) % Baso % (Auto) (0.2-1.2) % Neut # (Auto) (1.8-7.7) x10^3/uL Lymph # (Auto) (1.0-4.8) x10^3/uL [place] # (Auto) (0.0-0.8) x10^3/uL Eos # (Auto) (0.0-0.5) x10^3/uL Baso # (Auto) (0.0-0.2) x10^3/uL Immature Gran # (Auto) (0.00-0.07) x10^3/uL Sodium (136-145) mmol/L Potassium (3.5-5.1) mmol/L Chloride (98-107) mmol/L Carbon Dioxide (21-32) mmol/L Anion Gap (5-15) mmol/L BUN (7-18) mg/dL Creatinine (0.55-1.02) mg/dL Est Cr Clr Drug Dosing mL/min Estimated GFR (MDRD) Glucose (70-99) mg/dL Calcium (8.5-10.1) mg/dL Magnesium (1.8-2.4) mg/dL SARS CoV-2 RNA Rapid NASREEN Negative (NEGATIVE) Result Diagrams: 12/29/20 18:34 12/29/20 18:34 Sepsis Event Note - Evaluation Sepsis Screening Result: No Definite Risk - Focused Exam Vital Signs: Vital Signs Temp Pulse Resp BP Pulse Ox 12/29/20 18:43 36.6 C 71 28 H 94 L 12/29/20 18:40 36.9 C 84 28 H 128/73 93 L - Problem List (1) Decubital ulcer SNOMED Code(s): 242274546 ICD Code: L89.90 - PRESSURE ULCER OF UNSPECIFIED SITE, UNSPECIFIED STAGE Status: Acute Current Visit: Yes Qualifiers: Pressure injury location: buttock Pressure injury stage: stage 4 Laterality: right Qualified Code(s): L89.314 - Pressure ulcer of right buttock, stage 4 (2) Dehydration SNOMED Code(s): 92621571 ICD Code: E86.0 - DEHYDRATION Status: Acute Current Visit: Yes (3) Hypokalemia SNOMED Code(s): 60912852 ICD Code: E87.6 - HYPOKALEMIA Status: Acute Current Visit: Yes (4) Hypomagnesemia SNOMED Code(s): 274881326 ICD Code: E83.42 - HYPOMAGNESEMIA Status: Acute Current Visit: Yes (5) Atrial fibrillation SNOMED Code(s): 06418100 ICD Code: I48.91 - UNSPECIFIED ATRIAL FIBRILLATION Status: Chronic Current Visit: No Qualifiers: Atrial fibrillation type: longstanding persistent Qualified Code(s): I48.11 - Longstanding persistent atrial fibrillation (6) Chronic respiratory failure SNOMED Code(s): 64169017 ICD Code: J96.10 - CHRONIC RESPIRATORY FAILURE, UNSP W HYPOXIA OR HYPERCAPNIA Status: Chronic Current Visit: No Qualifiers: Respiratory failure complication: hypoxia Qualified Code(s): J96.11 - Chronic respiratory failure with hypoxia (7) COPD (chronic obstructive pulmonary disease) SNOMED Code(s): 56890187 ICD Code: J44.9 - CHRONIC OBSTRUCTIVE PULMONARY DISEASE, UNSPECIFIED Sta tus: Chronic Priority: Medium Current Visit: No Qualifiers: COPD type: unspecified COPD Qualified Code(s): J44.9 - Chronic obstructive pulmonary disease, unspecified Problem List Initiated/Reviewed/Updated: Yes Orders Last 24hrs: Active Orders 24 hr Category Date Time Status Admission Status [Patient Status] [ADT] Routine ADT 12/29/20 20:29 Active EKG 12 Lead [EKG Documentation Completion] [RC] STAT Care 12/29/20 18:56 Active Oxygen Therapy [RC] PRN Care 12/29/20 20:46 Ordered RT Aerosol Therapy [RC] ASDIRECTED Care 12/29/20 20:57 Ordered Telemetry Monitoring [Cardiac Monitoring] [RC] . Care 12/29/20 21:00 Ordered DIRECTED VTE/DVT Education [RC] PER UNIT ROUTINE Care 12/29/20 20:46 Ordered Vital Signs [RC] Q4H Care 12/29/20 20:46 Ordered Consult to Case Management/Skid Road Worker [CONS] Cons 12/29/20 20:46 Ordered Routine OT Evaluation and Treatment [CONS] Routine Cons 12/29/20 20:46 Ordered PT Evaluation and Treatment [CONS] Routine Cons 12/29/20 20:46 Ordered Heart Healthy Diet [DIET] Diet 12/29/20 Dinner Ordered BMP [BASIC METABOLIC PANEL,BMP] [CHEM] Routine Lab 12/30/20 21:02 Ordered CRP [C-REACTIVE PROTEIN] [CHEM] Routine Lab 12/30/20 21:05 Ordered LACTIC ACID [CHEM] Routine Lab 12/30/20 21:04 Ordered UA W/MICROSCOPIC [URIN] Stat Lab 12/29/20 18:56 Ordered Albuterol/Ipratropium [DuoNeb 3.0-0.5 MG/3 ML] Med 12/29/20 20:51 Ordered 3 ml INH Q6H PRN Arformoterol [Brovana] Med 12/29/20 21:00 Ordered 1 puff INH BID Aspirin [Halfprin] Med 12/30/20 08:00 Ordered 81 mg PO DAILY Budesonide [Pulmicort] Med 12/29/20 21:00 Ordered 0.5 mg INH BID Clopidogrel [Plavix] Med 12/30/20 08:00 Ordered 75 mg PO DAILY D5 1/2 NS w/ 20 mEq/L KCl 1,000 ml Med 12/29/20 19:15 Active IV ASDIRECTED Furosemide [Lasix] Med 12/30/20 08:00 Ordered 20 mg PO DAILY Levothyroxine [Synthroid] Med 12/30/20 07:00 Ordered 50 mcg PO ACBREAKFAST Magnesium Oxide Med 12/30/20 08:00 Ordered 400 mg PO DAILY Potassium Chloride Riders [KCL in Water 20 MEQ/50 ML] Med 12/29/20 21:00 Ordered 20 meq Premix Bag 1 bag IV Q2H Potassium Chloride [Klor-Con M10] Med 12/30/20 08:00 Ordered 20 meq PO BID Simvastatin [Zocor] Med 12/30/20 08:00 Ordered 40 mg PO DAILY Travoprost [Travatan Z] Med 12/30/20 20:00 Ordered 5 ml EYEBOTH BEDTIME Resuscitation Status Routine Resus Stat 12/29/20 20:46 Ordered Medication Orders Albuterol/Ipratropium (Albuterol/Ipratropium 3.0-0.5 Mg/3 Ml Neb Soln) 3 ml INH Q6H PRN PRN Reason: Wheezing Arformoterol Tartrate (Arformoterol 15 Mcg/2 Ml Neb Soln) mcg INH BID SAMIRA Aspirin (Aspirin 81 Mg Tab.Ec) 81 mg PO DAILY SAMIRA Budesonide (Budesonide 0.5 Mg/2 Ml Neb Susp) 0.5 mg INH BID SAMIRA Clopidogrel Bisulfate (Clopidogrel 75 Mg Tab) 75 mg PO DAILY [facility] Furosemide (Furosemide 40 Mg Tab) 20 mg PO DAILY [facility] Potassium Chloride/Dextrose/Sod Cl (D5 1/2 Ns W/ 20 Meq/L Kcl) 1,000 mls @ 125 mls/hr IV ASDIRECTED [facility] Last Admin: 12/29/20 19:18 Dose: 125 mls/hr Documented by: SOFÍA Potassium Chloride 20 meq/ (Premix) 50 mls @ 50 mls/hr IV Q2H SAMIRA Stop: 12/30/20 01:59 Levothyroxine Sodium (Levothyroxine 50 Mcg Tab) 50 mcg PO ACBREAKFAST [facility] Magnesium Oxide (Magnesium Oxide 400 Mg Tab) 400 mg PO DAILY [facility] Non-Formulary Medication (Potassium Chloride [Klor-Con M10]) 20 meq PO BID [facility] Non-Formulary Medication (Travoprost [Travatan Z]) 5 ml EYEBOTH BEDTIME SAMIRA Simvastatin (Simvastatin 20 Mg Tab) 40 mg PO DAILY [facility] ASSESMENT: 1. Hypokalemia 2. Hypomagnesium 3. Dehydration 4. Stage 4 decubiti 5. Chronic Resp failure 6. A fib Plan: 1. Pt will be admitted to the hosp. She desires to be a Code 2 - does not want to be intubated 2. Will replace potassium both IV and orally 3. Will replace magnesium orally 4. Will seek surgical consultation regarding wound in AM 5. PT/OT and Case Management consulted
[2020-12-29] MEDS: Budesonide 0.5 MG/2 ML Neb Susp INH SCH (21:54)
[2020-12-29] MEDS: Arformoterol 15 MCG/2 ML Neb Soln INH SCH (21:54)
[2020-12-30] MEDS: Potassium Chloride Riders 20 MEQ in Premix Bag 1 BAG IV SCH ×2 (00:07→02:01)
[2020-12-30] MEDS: D5 1/2 NS w/ 20 mEq/L KCl 1,000 ML IV SCH (02:53)
[2020-12-30] MEDS ORDERED: Levothyroxine 50 MCG Tab PO SCH (07:00)
[2020-12-30 07:22] LABS: CHLORIDE,CL 88 mmol/L (98-107); SODIUM,NA 131 mmol/L (136-145)
[2020-12-30 07:25] LABS: ANION GAP 4.5 mmol/L (5-15)
[2020-12-30] MEDS ORDERED: Aspirin 81 MG Tab.EC PO SCH (08:00)
[2020-12-30] MEDS ORDERED: Clopidogrel 75 MG Tab PO SCH (08:00)
[2020-12-30] MEDS ORDERED: Simvastatin 20 MG Tab PO SCH (08:00)
[2020-12-30] MEDS ORDERED: Magnesium Oxide 400 MG Tab PO SCH (08:00)
[2020-12-30] MEDS ORDERED: Potassium Chloride 20 MEQ Tab.ER PO SCH (08:00)
[2020-12-30] MEDS ORDERED: Furosemide 40 MG Tab PO SCH (08:00)
[2020-12-30] MEDS: Budesonide 0.5 MG/2 ML Neb Susp INH SCH (08:43)
[2020-12-30] MEDS: Arformoterol 15 MCG/2 ML Neb Soln INH SCH (08:43)
[2020-12-30] MEDS ORDERED: Meropenem 1 GM SDV IVPUSH SCH (09:00)
[2020-12-30] MEDS ORDERED: Potassium Chloride 10 MEQ Tab.ER PO ONE ×2 (09:22→12:00)
[2020-12-30] MEDS ORDERED: Magnesium Sulfate/Water 4 GM in Premix Bag 1 BAG IV ONE (09:25)
[2020-12-30] MEDS ORDERED: D5 1/2 NS w/ 40 mEq/L KCl 1,000 ML IV SCH (09:27)
[2020-12-30] MEDS ORDERED: Zinc Sulfate 220 MG Cap PO SCH (09:30)
--- NOTE | 2020-12-30 12:34 | PN ---
Progress Note for CYRIL PENNY Date: 12/30/2020 Room #: VM.216 CHIEF COMPLAINT: Fall. SUBJECTIVE: A 80-year-old female patient was admitted through the emergency room at [facility] last evening after she fell at home. Apparently, the patient lost her balance while using her walker and fell. The patient states she is usually bed bound. The patient's son called the EMS for assistance. Upon arrival, EMS found the patient on the ground, assisted her to the cot, and brought her to the emergency room. In the emergency room, it was noted the patient had a fecal matter stuck to her skin along her mid back, bilateral buttocks, and bilateral groin. The patient was also noted to have multiple bruising as well as a pressure ulcer on the bilateral buttocks. The emergency room lab showed a potassium of 1.7, magnesium 1.1, and WBC 11.5. In the emergency room, the patient did receive a 500 mL normal saline bolus. She was then admitted to the floor. The patient is alert this morning. The patient is somewhat lethargic throughout the interview. The patient denies any pain. She denies any headache, dizziness, or lightheadedness. She does complain of shortness of breath, however, this is chronic secondary to her severe COPD. She denies any cough. No chest pain or palpitations. The patient denies any abdominal pain. No nausea, vomiting, or diarrhea. The patient states she has not felt feverish or remembers having any chills. REVIEW OF SYSTEMS: Constitutional: Negative. Skin: Multiple bruising and sores. Respiratory: Shortness of breath, denies cough. Cardiovascular: Negative. Abdomen: Negative. Neurological: Negative. PHYSICAL EXAMINATION: Vital Signs: Temperature 97.6, pulse 73, blood pressure 108/49, respiratory rate 18, oxygen saturation 94% on 2 L. Skin: The patient has multiple bruising over the upper posterior thighs as well as the buttocks, and upper extremities. The patient has a very large decubitus ulcer over the coccyx and left buttock, this is unstageable, present prior to admission. Skin is fragile. Skin is warm. Respiratory: Lungs are decreased throughout, no atelectasis or wheezing. Cardiovascular: Irregularly irregular rhythm, regular rate. Abdomen: Soft, nontender. Bowel sounds are hypoactive x4. Neurological: The patient is alert. The patient is cooperative. The patient is somewhat drowsy. General: In no acute distress. The patient is cooperative. LABORATORY STUDIES: 1. CBC: White blood cell count 11.3, hemoglobin 10.8, hematocrit 32.3, platelet count is 224,000. 2. BMP: Sodium 131, potassium 2.5, chloride 88, CO2 of 41, anion gap 4.5, BUN 13, creatinine 0.8, GFR is greater than 60, glucose 146, lactic acid 2.5, calcium 7.4. 3. C-reactive protein 4.4. 4. Procalcitonin less than 0.05. ASSESSMENT: 1. Sepsis of unknown etiology as evidenced by leukocytosis and lactic acidosis as well as hypotension. 2. Decubitus ulcer, coccyx and buttocks, unstageable. 3. Hypokalemia. 4. Clinical dehydration. 5. Fall at home. 6. Atrial fibrillation, not on anticoagulation. 7. Chronic obstructive pulmonary disease. 8. Rheumatoid arthritis. 9. Chronic respiratory failure with hypoxia, on home O2. 10.Congestive heart failure. 11.Iron deficiency anemia. 12.Essential hypertension. 13.Mixed hyperlipidemia. 14.Alcohol abuse. 15.Pulmonary arterial systolic hypertension. PLAN: A 80-year-old female patient was admitted to the acute care floor at [facility] for the above diagnoses. For sepsis, the patient will be started on IV antibiotics. Recheck lactic acid 4 hours past last draw. Start the patient on vancomycin. We will supplement magnesium and potassium. The patient is a CPR only. Respiratory care consult. Case management for discharge planning. PT/OT as appropriate. We will obtain a wound culture of the buttock. Recheck laboratory work tomorrow morning. We will add another labs to check nutritional status secondary to extensive decubitus ulcer. This patient was seen and examined by me as an [facility] provider. TB: 12/30/2020 11:16:16 MODL: 12/30/2020 12:19:08 /[id number]
--- NOTE | 2020-12-30 13:41 | CR ---
[id number] RAD/RAD Chest PA or AP 1V EXAM: RAD Chest PA or AP 1V INDICATION: SHORTNESS OF BREATH, COPD. COMPARISON: Radiograph from June 2020. CT from September 19, 2019. DISCUSSION/IMPRESSION: Chronic obstructive pulmonary disease with bilateral symmetric lung hyperinflation, similar to the prior examination. Improved aeration of the right lung base compared the prior examination. Persistent opacities on the left. Appearance is similar to January 2020 and nonspecific in etiology. Findings could represent atelectasis or aspiration. If there are clinical signs of infection, pneumonia is also possible. Cardiomediastinal silhouette is unchanged in size and contour compared to the prior examination. Williams Fragoso MD 12/30/20 [id number] Thank you for allowing us to participate in the care of your patient.
[2020-12-30 14:19] VITALS: BP 111/38; PULSE 69
--- NOTE | 2020-12-30 15:51 | PCM.DCSUM1 ---
Discharge Summary - Hospital Course Brief History: 80 year old female admitted yesterday from ER - with hypokalemia, hypomagnesium and stage 4 decubiti. potassium replaced, magnesium replaced. Wide spectrum antibiotics initiated. pt being transferred to tertiary care facility for surgical consultation. Diagnosis: Stroke: No - Discharge Data Discharge Date: 12/30/20 Discharge Disposition: DC/Tfer to Acute Hospital 02 Condition: Fair - Referral to Home Health Primary Care Physician: Tessa Tamayo NP - Discharge Diagnosis/Problem(s) (1) Decubital ulcer SNOMED Code(s): 554598952 ICD Code: L89.90 - PRESSURE ULCER OF UNSPECIFIED SITE, UNSPECIFIED STAGE Status: Acute Current Visit: Yes Qualifiers: Pressure injury location: buttock Pressure injury stage: stage 4 Laterality: right Qualified Code(s): L89.314 - Pressure ulcer of right buttock, stage 4 (2) Dehydration SNOMED Code(s): 78207402 ICD Code: E86.0 - DEHYDRATION Status: Acute Current Visit: Yes (3) Hypokalemia SNOMED Code(s): 95362672 ICD Code: E87.6 - HYPOKALEMIA Status: Acute Current Visit: Yes (4) Hypomagnesemia SNOMED Code(s): 581284542 ICD Code: E83.42 - HYPOMAGNESEMIA Status: Acute Current Visit: Yes (5) Atrial fibrillation SNOMED Code(s): 40625537 ICD Code: I48.91 - UNSPECIFIED ATRIAL FIBRILLATION Status: Chronic Current Visit: No Qualifiers: Atrial fibrillation type: longstanding persistent Qualified Code(s): I48.11 - Longstanding persistent atrial fibrillation (6) Chronic respiratory failure SNOMED Code(s): 95377349 ICD Code: J96.10 - CHRONIC RESPIRATORY FAILURE, UNSP W HYPOXIA OR HYPERCAPNIA Status: Chronic Current Visit: No Qualifiers: Respiratory failure complication: hypoxia Qualified Code(s): J96.11 - Chronic respiratory failure with hypoxia (7) COPD (chronic obstructive pulmonary disease) SNOMED Code(s): 79116215 ICD Code: J44.9 - CHRONIC OBSTRUCTIVE PULMONARY DISEASE, UNSPECIFIED Status: Chronic Priority: Medium Current Visit: No Qualifiers: COPD type: unspecified COPD Qualified Code(s): J44.9 - Chronic obstructive pulmonary disease, unspecified - Patient Summary/Data Consults: Consultations 12/29/20 20:46 Consult to Case Management/Pattern Duplicator [CONS] Routine OT Evaluation and Treatment [CONS] Routine PT Evaluation and Treatment [CONS] Routine 12/30/20 10:52 Respiratory Care Assess and Treatment [CONS] Routine - Discharge Plan *PRESCRIPTION DRUG MONITORING PROGRAM REVIEWED*: No *COPY OF PRESCRIPTION DRUG MONITORING REPORT IN PATIENT SUPRIYA: No Home Medications: Home Meds Simvastatin 40 mg PO DAILY 11/10/15 [History] Aspirin [Adult Aspirin] 81 mg PO DAILY 06/02/18 [History] Furosemide [Lasix] 40 mg PO DAILY 02/20/19 [History] Albuterol/Ipratropium [DuoNeb 3.0-0.5 MG/3 ML] 3 ml IH Q6H PRN 09/19/19 [History] Arformoterol [Brovana] 1 puff INH BID 09/19/19 [History] Budesonide [Pulmicort] 0.5 mg IH BID 09/19/19 [History] Clobetasol/Emollient [Temovate E 0.05% Crm] 30 gm TOP BID 09/19/19 [History] Clopidogrel Bisulfate [Plavix] 75 mg PO DAILY 09/19/19 [History] Sennosides/Docusate Sodium [Senna-Docusate Sodium Tablet] 2 each PO DAILY 09/19/19 [History] Travoprost [Travatan Z] 5 ml EYEBOTH BEDTIME 09/19/19 [History] Diltiazem [Cardizem CD] 120 mg PO DAILY 12/29/20 [History] Folic Acid 1 mg PO DAILY 12/29/20 [History] Potassium Chloride 40 meq PO DAILY 12/29/20 [History] Sertraline [Zoloft] 50 mg PO DAILY 12/29/20 [History] Oxygen Therapy Mode: Nasal Cannula Oxygen Flow Rate (L/min): 4 Forms: ED Department Discharge, Interfacility Transfer EMTALA Referrals: Tessa Tamayo NP [Primary Care Provider] - - Discharge Summary/Plan Comment DC Time >30 min.: No Total # of Minutes for Discharge Time: 25 Discharge Summary/Plan Comment: pt will be transferred to in [place] via ALS crew for continued medical care and surgical consultation. - General Info Date of Service: 12/30/20 Subjective Update: Patient's lactic acid returned elevated this AM. Started on broad spectrum antibiotics for treatment of stage 4 decubiti. 2nd lactic acid is again elevated. Functional Status: Reports: Pain Controlled - Review of Systems General: Reports: Weakness HEENT: Reports: No Symptoms Pulmonary: Reports: Shortness of Breath (Denies change) Cardiovascular: Denies: Chest Pain Gastrointestinal: Reports: Decreased Appetite. Denies: Abdominal Pain Genitourinary: Denies: Dysuria Neurological: Denies: Confusion - Patient Data Vitals - Most Recent: Last Vital Signs Temp 36.6 C 12/30/20 14:19 Pulse 69 12/30/20 14:19 Resp 22 H 12/30/20 14:19 BP 111/38 L 12/30/20 14:19 Pulse Ox 91 L 12/30/20 14:19 Weight - Most Recent: 61.689 kg I&O - Last 24 hours: Intake & Output 12/30/20 12/30/20 12/30/20 06:59 14:59 22:59 Intake Total 2425 140 Balance 2425 140 Lab Results - Last 24 hrs: Laboratory Results - last 24 hr 12/29/20 12/29/20 12/29/20 Range/Units 18:34 18:34 18:34 WBC 11.5 H (4.0-10.0) x10^3/uL RBC 4.39 (4.00-5.50) x10^6/uL Hgb 13.6 (12.0-16.0) g/dL Hct 41.2 (33.0-47.0) % MCV 93.8 H (78.0-93.0) fL MCH 31.0 (26.0-32.0) pg MCHC 33.0 (32.0-36.0) g/dL RDW Coeff of Georgina 13.1 (10.0-15.0) % Plt Count 276 (130-400) x10^3/uL Immature Gran % (Auto) 1.00 H (0.00-0.43) % Neut % (Auto) 79.2 (50.0-80.0) % Lymph % (Auto) 10.3 L (25.0-50.0) % [place] % (Auto) 9.3 (2.0-11.0) % Eos % (Auto) 0.1 (0.0-4.0) % Baso % (Auto) 0.1 L (0.2-1.2) % Neut # (Auto) 9.1 H (1.8-7.7) x10^3/uL Lymph # (Auto) 1.2 (1.0-4.8) x10^3/uL [place] # (Auto) 1.1 H (0.0-0.8) x10^3/uL Eos # (Auto) 0.0 (0.0-0.5) x10^3/uL Baso # (Auto) 0.0 (0.0-0.2) x10^3/uL Immature Gran # (Auto) 0.11 H (0.00-0.07) x10^3/uL Sodium 133 L (136-145) mmol/L Potassium 1.7 L* D (3.5-5.1) mmol/L Chloride 82 L D (98-107) mmol/L Carbon Dioxide 43 H D (21-32) mmol/L Anion Gap 9.7 (5-15) mmol/L BUN 14 (7-18) mg/dL Creatinine 0.8 (0.55-1.02) mg/dL Est Cr Clr Drug Dosing 47.94 mL/min Estimated GFR (MDRD) > 60 Glucose 108 H (70-99) mg/dL Lactic Acid (0.4-2.0) mmol/L Calcium 8.3 L (8.5-10.1) mg/dL Magnesium 1.1 L (1.8-2.4) mg/dL Ferritin (8-252) ng/mL C-Reactive Protein (<=0.9) mg/dL Procalcitonin (0.1-0.50) ng/mL TSH, Ultra Sensitive (0.358-3.74) uIU/mL Urine Color (YELLOW) Urine Appearance (CLEAR) Urine pH (5.0-8.0) Ur Specific Anderson Urine Protein (NEGATIVE) mg/dL Urine Glucose (UA) (NEGATIVE) mg/dL Urine Ketones (NEGATIVE) mg/dL Urine Occult Blood (NEGATIVE) Urine Nitrite (NEGATIVE) Urine Bilirubin (NEGATIVE) Urine Urobilinogen (0.2) EU/dL Ur Leukocyte Esterase (NEGATIVE) Urine RBC (NOT SEEN) /HPF Urine WBC (NOT SEEN) /HPF Ur Squamous Epith Cells (NOT SEEN) /HPF Urine Bacteria (NOT SEEN) /HPF Urine Mucus (NOT SEEN) /LPF SARS CoV-2 RNA Rapid NASREEN (NEGATIVE) 12/29/20 12/30/20 12/30/20 Range/Units 19:25 06:36 06:36 WBC (4.0-10.0) x10^3/uL RBC (4.00-5.50) x10^6/uL Hgb (12.0-16.0) g/dL Hct (33.0-47.0) % MCV (78.0-93.0) fL MCH (26.0-32.0) pg MCHC (32.0-36.0) g/dL RDW Coeff of Georgina (10.0-15.0) % Plt Count (130-400) x10^3/uL Immature Gran % (Auto) (0.00-0.43) % Neut % (Auto) (50.0-80.0) % Lymph % (Auto) (25.0-50.0) % [place] % (Auto) (2.0-11.0) % Eos % (Auto) (0.0-4.0) % Baso % (Auto) (0.2-1.2) % Neut # (Auto) (1.8-7.7) x10^3/uL Lymph # (Auto) (1.0-4.8) x10^3/uL [place] # (Auto) (0.0-0.8) x10^3/uL Eos # (Auto) (0.0-0.5) x10^3/uL Baso # (Auto) (0.0-0.2) x10^3/uL Immature Gran # (Auto) (0.00-0.07) x10^3/uL Sodium 131 L (136-145) mmol/L Potassium 2.5 L* (3.5-5.1) mmol/L Chloride 88 L (98-107) mmol/L Carbon Dioxide 41 H (21-32) mmol/L Anion Gap 4.5 L (5-15) mmol/L BUN 13 (7-18) mg/dL Creatinine 0.8 (0.55-1.02) mg/dL Est Cr Clr Drug Dosing 47.94 mL/min Estimated GFR (MDRD) > 60 Glucose 146 H (70-99) mg/dL Lactic Acid 2.5 H* (0.4-2.0) mmol/L Calcium 7.4 L (8.5-10.1) mg/dL Magnesium (1.8-2.4) mg/dL Ferritin (8-252) ng/mL C-Reactive Protein 4.4 H (<=0.9) mg/dL Procalcitonin (0.1-0.50) ng/mL TSH, Ultra Sensitive (0.358-3.74) uIU/mL Urine Color (YELLOW) Urine Appearance (CLEAR) Urine pH (5.0-8.0) Ur Specific Anderson Urine Protein (NEGATIVE) mg/dL Urine Glucose (UA) (NEGATIVE) mg/dL Urine Ketones (NEGATIVE) mg/dL Urine Occult Blood (NEGATIVE) Urine Nitrite (NEGATIVE) Urine Bilirubin (NEGATIVE) Urine Urobilinogen (0.2) EU/dL Ur Leukocyte Esterase (NEGATIVE) Urine RBC (NOT SEEN) /HPF Urine WBC (NOT SEEN) /HPF Ur Squamous Epith Cells (NOT SEEN) /HPF Urine Bacteria (NOT SEEN) /HPF Urine Mucus (NOT SEEN) /LPF SARS CoV-2 RNA Rapid NASREEN Negative (NEGATIVE) 12/30/20 12/30/20 12/30/20 Range/Units 06:36 06:36 09:47 WBC 11.1 H (4.0-10.0) x10^3/uL RBC 3.41 L (4.00-5.50) x10^6/uL Hgb 10.8 L D (12.0-16.0) g/dL Hct 32.3 L (33.0-47.0) % MCV 94.7 H (78.0-93.0) fL MCH 31.7 (26.0-32.0) pg MCHC 33.4 (32.0-36.0) g/dL RDW Coeff of Georgina 13.5 (10.0-15.0) % Plt Count 224 (130-400) x10^3/uL Immature Gran % (Auto) 1.10 H (0.00-0.43) % Neut % (Auto) 76.5 (50.0-80.0) % Lymph % (Auto) 11.9 L (25.0-50.0) % [place] % (Auto) 9.9 (2.0-11.0) % Eos % (Auto) 0.4 (0.0-4.0) % Baso % (Auto) 0.2 (0.2-1.2) % Neut # (Auto) 8.5 H (1.8-7.7) x10^3/uL Lymph # (Auto) 1.3 (1.0-4.8) x10^3/uL [place] # (Auto) 1.1 H (0.0-0.8) x10^3/uL Eos # (Auto) 0.0 (0.0-0.5) x10^3/uL Baso # (Auto) 0.0 (0.0-0.2) x10^3/uL Immature Gran # (Auto) 0.12 H (0.00-0.07) x10^3/uL Sodium (136-145) mmol/L Potassium (3.5-5.1) mmol/L Chloride (98-107) mmol/L Carbon Dioxide (21-32) mmol/L Anion Gap (5-15) mmol/L BUN (7-18) mg/dL Creatinine (0.55-1.02) mg/dL Est Cr Clr Drug Dosing mL/min Estimated GFR (MDRD) Glucose (70-99) mg/dL Lactic Acid (0.4-2.0) mmol/L Calcium (8.5-10.1) mg/dL Magnesium (1.8-2.4) mg/dL Ferritin (8-252) ng/mL C-Reactive Protein (<=0.9) mg/dL Procalcitonin <0.05 L (0.1-0.50) ng/mL TSH, Ultra Sensitive 2.242 (0.358-3.74) uIU/mL Urine Color (YELLOW) Urine Appearance (CLEAR) Urine pH (5.0-8.0) Ur Specific Anderson Urine Protein (NEGATIVE) mg/dL Urine Glucose (UA) (NEGATIVE) mg/dL Urine Ketones (NEGATIVE) mg/dL Urine Occult Blood (NEGATIVE) Urine Nitrite (NEGATIVE) Urine Bilirubin (NEGATIVE) Urine Urobilinogen (0.2) EU/dL Ur Leukocyte Esterase (NEGATIVE) Urine RBC (NOT SEEN) /HPF Urine WBC (NOT SEEN) /HPF Ur Squamous Epith Cells (NOT SEEN) /HPF Urine Bacteria (NOT SEEN) /HPF Urine Mucus (NOT SEEN) /LPF SARS CoV-2 RNA Rapid NASREEN (NEGATIVE) 12/30/20 12/30/20 12/30/20 Range/Units 11:25 11:35 11:35 WBC (4.0-10.0) x10^3/uL RBC (4.00-5.50) x10^6/uL Hgb (12.0-16.0) g/dL Hct (33.0-47.0) % MCV (78.0-93.0) fL MCH (26.0-32.0) pg MCHC (32.0-36.0) g/dL RDW Coeff of Georgina (10.0-15.0) % Plt Count (130-400) x10^3/uL Immature Gran % (Auto) (0.00-0.43) % Neut % (Auto) (50.0-80.0) % Lymph % (Auto) (25.0-50.0) % [place] % (Auto) (2.0-11.0) % Eos % (Auto) (0.0-4.0) % Baso % (Auto) (0.2-1.2) % Neut # (Auto) (1.8-7.7) x10^3/uL Lymph # (Auto) (1.0-4.8) x10^3/uL [place] # (Auto) (0.0-0.8) x10^3/uL Eos # (Auto) (0.0-0.5) x10^3/uL Baso # (Auto) (0.0-0.2) x10^3/uL Immature Gran # (Auto) (0.00-0.07) x10^3/uL Sodium (136-145) mmol/L Potassium (3.5-5.1) mmol/L Chloride (98-107) mmol/L Carbon Dioxide (21-32) mmol/L Anion Gap (5-15) mmol/L BUN (7-18) mg/dL Creatinine (0.55-1.02) mg/dL Est Cr Clr Drug Dosing mL/min Estimated GFR (MDRD) Glucose (70-99) mg/dL Lactic Acid 3.7 H* (0.4-2.0) mmol/L Calcium (8.5-10.1) mg/dL Magnesium (1.8-2.4) mg/dL Ferritin 243 (8-252) ng/mL C-Reactive Protein (<=0.9) mg/dL Procalcitonin (0.1-0.50) ng/mL TSH, Ultra Sensitive (0.358-3.74) uIU/mL Urine Color Yellow (YELLOW) Urine Appearance Cloudy H (CLEAR) Urine pH 5.5 (5.0-8.0) Ur Specific Anderson 1.015 Urine Protein Negative (NEGATIVE) mg/dL Urine Glucose (UA) Negative (NEGATIVE) mg/dL Urine Ketones Negative (NEGATIVE) mg/dL Urine Occult Blood Negative (NEGATIVE) Urine Nitrite Positive H (NEGATIVE) Urine Bilirubin Negative (NEGATIVE) Urine Urobilinogen 0.2 (0.2) EU/dL Ur Leukocyte Esterase Negative (NEGATIVE) Urine RBC 0-5 (NOT SEEN) /HPF Urine WBC 5-10 H (NOT SEEN) /HPF Ur Squamous Epith Cells Rare (NOT SEEN) /HPF Urine Bacteria Many H (NOT SEEN) /HPF Urine Mucus Not seen (NOT SEEN) /LPF SARS CoV-2 RNA Rapid NASREEN (NEGATIVE) Med Orders - Current: Current Medications Albuterol/Ipratropium (Albuterol/Ipratropium 3.0-0.5 Mg/3 Ml Neb Soln) 3 ml INH Q6H PRN PRN Reason: Wheezing Arformoterol Tartrate (Arformoterol 15 Mcg/2 Ml Neb Soln) 15 mcg INH BID [facility] Last Admin: 12/30/20 08:43 Dose: 15 mcg Documented by: Aspirin (Aspirin 81 Mg Tab.Ec) 81 mg PO DAILY [facility] Last Admin: 12/30/20 08:42 Dose: 81 mg Documented by: Budesonide (Budesonide 0.5 Mg/2 Ml Neb Susp) 0.5 mg INH BID [facility] Last Admin: 12/30/20 08:43 Dose: 0.5 mg Documented by: Clopidogrel Bisulfate (Clopidogrel 75 Mg Tab) 75 mg PO DAILY [facility] Last Admin: 12/30/20 08:43 Dose: 75 mg Documented by: Furosemide (Furosemide 20 Mg Tab) 20 mg PO DAILY [facility] Potassium Chloride/Dextrose/Sod Cl (D5 1/2 Ns W/ 40 Meq/L Kcl) 1,000 mls @ 125 mls/hr IV ASDIRECTED [facility] Last Admin: 12/30/20 10:12 Dose: 125 mls/hr Documented by: Vancomycin HCl 750 mg/ Sodium (Chloride) 100 mls @ 125 mls/hr IV BID [facility] Last Admin: 12/30/20 12:54 Dose: 125 mls/hr Documented by: Latanoprost (Latanoprost 0.005% Ophth Soln 2.5 Ml Bottle) 0 ml EYEBOTH BEDTIME [facility] Levothyroxine Sodium (Levothyroxine 50 Mcg Tab) 50 mcg PO ACBREAKFAST [facility] Last Admin: 12/30/20 06:48 Dose: 50 mcg Documented by: Magnesium Oxide (Magnesium Oxide 400 Mg Tab) 400 mg PO DAILY [facility] Last Admin: 12/30/20 08:43 Dose: 400 mg Documented by: Meropenem (Meropenem 1 Gm Sdv) 1 gm IVPUSH Q12H [facility] Last Admin: 12/30/20 10:13 Dose: 1 gm Documented by: Potassium Chloride (Potassium Chloride 20 Meq Tab.Er) 20 meq PO BID [facility] Last Admin: 12/30/20 08:43 Dose: 20 meq Documented by: Simvastatin (Simvastatin 40 Mg Tab) 40 mg PO DAILY [facility] Vancomycin HCl (Pharmacy To Dose - Vancomycin) 1 dose .XX ASDIRECTED [facility] Zinc Sulfate (Zinc Sulfate 220 Mg Cap) 220 mg PO DAILY [facility] Last Admin: 12/30/20 10:12 Dose: 220 mg Documented by: Discontinued Medications Furosemide (Furosemide 40 Mg Tab) 20 mg PO DAILY [facility] Last Admin: 12/30/20 08:49 Dose: Not Given Documented by: Sodium Chloride (Normal Saline) 1,000 mls @ 500 mls/hr IV ONETIME ONE Stop: 12/29/20 20:26 Last Admin: 12/29/20 18:39 Dose: 500 mls/hr Documented by: Potassium Chloride/Dextrose/Sod Cl (D5 1/2 Ns W/ 20 Meq/L Kcl) 1,000 mls @ 125 mls/hr IV ASDIRECTED [facility] Last Admin: 12/30/20 02:53 Dose: 125 mls/hr Documented by: Potassium Chloride 20 meq/ (Premix) 50 mls @ 50 mls/hr IV Q2H [facility] Stop: 12/30/20 01:59 Last Infusion: 12/29/20 22:03 Dose: 25 mls/hr Documented by: Potassium Chloride 20 meq/ (Premix) 50 mls @ 25 mls/hr IV Q2H [facility] Stop: 12/30/20 03:59 Last Admin: 12/30/20 02:01 Dose: 25 mls/hr Documented by: Magnesium Sulfate 4 gm/ Premix 100 mls @ 50 mls/hr IV ONETIME ONE Stop: 12/30/20 11:24 Last Admin: 12/30/20 10:13 Dose: 50 mls/hr Documented by: Magnesium Oxide (Magnesium Oxide 400 Mg Tab) 400 mg PO ONETIME ONE Stop: 12/29/20 19:01 Last Admin: 12/29/20 19:20 Dose: 400 mg Documented by: Potassium Chloride (Potassium Chloride 10% 20 Meq/15 Ml Soln 15 Ml Ud Cup) 20 meq PO ONETIME ONE Stop: 12/29/20 18:57 Last Admin: 12/29/20 19:20 Dose: 20 meq Documented by: Potassium Chloride (Potassium Chloride 10 Meq Tab.Er) 20 meq PO ONETIME ONE Stop: 12/30/20 09:23 Last Admin: 12/30/20 10:12 Dose: 20 meq Documented by: Potassium Chloride (Potassium Chloride 10 Meq Tab.Er) 40 meq PO 1200 ONE Stop: 12/30/20 12:01 Last Admin: 12/30/20 12:55 Dose: 40 meq Documented by: Simvastatin (Simvastatin 20 Mg Tab) 40 mg PO DAILY [facility] Last Admin: 12/30/20 08:43 Dose: 40 mg Documented by: - Exam Quality Assessment: Reports: Supplemental Oxygen General: Reports: Alert, Oriented HEENT: Reports: Pupils Equal Neck: Reports: Supple Lungs: Reports: Decreased Breath Sounds Cardiovascular: Reports: Irregular Rhythm GI/Abdominal Exam: Non-Tender Extremities: No Pedal Edema Skin: Reports: Warm Wound/Incisions: Reports: Decubitis Neurological: Reports: No New Focal Deficit Psy/Mental Status: Reports: Alert
[2020-12-30] MEDS ORDERED: Latanoprost 0.005% Ophth Soln 2.5 ML Bottle EYEBOTH SCH (20:00)
[2020-12-31] MEDS ORDERED: Furosemide 20 MG Tab PO SCH (08:00)
[2020-12-31] MEDS ORDERED: Simvastatin 40 MG Tab PO SCH (08:00)
== END 2020-12-30 17:35 | disposition short-term general hospital (02) | DRG 871 ==
LOC: VM.ED 18:08 → VM.MS 20:29
PROVIDERS: ADMIT Family Medicine; ATTEND Family Medicine
DX: A41.9 Sepsis, unspecified organism (principal); L89.314 Pressure ulcer of right buttock, stage 4; E43 Unspecified severe protein-calorie malnutrition; I48.11 Longstanding persistent atrial fibrillation; J96.11 Chronic respiratory failure with hypoxia; E87.2 Acidosis; E87.6 Hypokalemia; E83.42 Hypomagnesemia; E86.0 Dehydration; J44.9 Chronic obstructive pulmonary disease, unspecified; L89.899 Pressure ulcer of other site, unspecified stage; Z20.822 Contact with and (suspected) exposure to COVID-19; F17.200 Nicotine dependence, unspecified, uncomplicated; E78.00 Pure hypercholesterolemia, unspecified; I10 Essential (primary) hypertension; E78.2 Mixed hyperlipidemia; D50.9 Iron deficiency anemia, unspecified; L89.150 Pressure ulcer of sacral region, unstageable; I48.91 Unspecified atrial fibrillation; M06.9 Rheumatoid arthritis, unspecified; I27.21 Secondary pulmonary arterial hypertension; E66.9 Obesity, unspecified; I50.9 Heart failure, unspecified; K57.90 Diverticulosis of intestine, part unspecified, without perforation or abscess without bleeding; N39.3 Stress incontinence (female) (male); Z79.82 Long term (current) use of aspirin; Z79.899 Other long term (current) drug therapy; Z95.5 Presence of coronary angioplasty implant and graft; Z98.51 Tubal ligation status; Z68.24 Body mass index [BMI] 24.0-24.9, adult; Z74.01 Bed confinement status; Z79.02 Long term (current) use of antithrombotics/antiplatelets; Z79.51 Long term (current) use of inhaled steroids
CPT/HCPCS: 36415; 71045; 80048; 81001; 82607; 82728; 83540; 83550; 83605; 83735; 84134; 84145; 84443; 85025; 86140; 87040; 87070; 93005; 93010; 94640; 94760; 96365; 97165-GO; 99284; 99285-25; A9270-GY; J2185; J3370; J3475; J3480; J7030; J7620-GY; U0002

== ENCOUNTER 2021-10-08 09:07 | Emergency (ER) | payer MEDICARE, MEDICAID ==
[2021-10-08] MEDS: Albuterol/Ipratropium 3.0-0.5 MG/3 ML Neb Soln NEB ONE (09:29)
[2021-10-08 10:02] LABS: CHLORIDE,CL 101 mmol/L (98-107); SODIUM,NA 140 mmol/L (136-145)
[2021-10-08 10:03] LABS: ANION GAP 10.6 mmol/L (5-15)
[2021-10-08 11:44] VITALS: BP 182/99; PULSE 93
== END 2021-10-08 11:18 | disposition home or self-care (01) ==
LOC: VM.ED 09:07
DX: J18.9 Pneumonia, unspecified organism (principal); J44.9 Chronic obstructive pulmonary disease, unspecified; I11.0 Hypertensive heart disease with heart failure; I50.9 Heart failure, unspecified; E78.00 Pure hypercholesterolemia, unspecified; E66.9 Obesity, unspecified; Z68.24 Body mass index [BMI] 24.0-24.9, adult; Z79.899 Other long term (current) drug therapy; Z79.82 Long term (current) use of aspirin
CPT/HCPCS: 36415; 71045; 80053; 82550; 83615; 83880; 84484; 85025; 85379; 85610; 86140; 93005; 93010; 94640; 99284; 99285-25; J7620-GY

== ENCOUNTER 2021-10-23 14:53 | Emergency (ER) | payer MEDICARE, MEDICAID ==
[2021-10-23] MEDS ORDERED: Sodium Chloride 0.9% 10 ML Syringe FLUSH PRN (15:04)
[2021-10-23] MEDS ORDERED: cefTRIAXone 2 GM Vial IVPUSH ONE (15:51)
[2021-10-23 16:01] LABS: PTT,PARTIAL THROMBOPLSTIN TIME 39.9 SEC (20.5-30.9)
[2021-10-23 16:03] LABS: PCO2 ARTERIAL,POC 38 mmHg (35-48)
[2021-10-23 16:06] LABS: CHLORIDE,CL 95 mmol/L (98-107); SODIUM,NA 135 mmol/L (136-145)
[2021-10-23 16:15] LABS: ANION GAP 14.2 mmol/L (5-15); ESTIMATED GFR 75 mL/min (>=60)
[2021-10-23] MEDS ORDERED: Furosemide 40 MG/4 ML VIAL IV ONE (16:22)
[2021-10-23] MEDS ORDERED: Nitroglycerin/D5W 25 MG/250 ML BOTTLE IV SCH (16:45)
[2021-10-23] MEDS ORDERED: Morphine 4 MG/ML Syringe IVPUSH ONE (16:50)
[2021-10-23 16:56] LABS: CORONAVIRUS COVID-19 NAA NEGATIVE (NEGATIVE); RESPIRATORY SYNCYTIAL VIR NAA NEGATIVE (NEGATIVE)
[2021-10-23] MEDS ORDERED: Azithromycin 500 MG in Sodium Chloride 0.9% 250 ML IV SCH (17:30)
[2021-10-23] MEDS ORDERED: Diltiazem 50 MG/10 ML SDV IVPUSH ONE (17:41)
[2021-10-23] MEDS ORDERED: Nitroglycerin 0.4 MG Tab.SL SL ONE (17:43)
[2021-10-23] MEDS ORDERED: Albuterol/Ipratropium 3.0-0.5 MG/3 ML Neb Soln NEB ONE (18:28)
[2021-10-23 21:56] VITALS: BP 107/69; PULSE 118
== END 2021-10-23 18:46 | disposition short-term general hospital (02) ==
LOC: VM.ED 14:53
DX: I11.0 Hypertensive heart disease with heart failure (principal); I50.9 Heart failure, unspecified; J18.9 Pneumonia, unspecified organism; E78.00 Pure hypercholesterolemia, unspecified; J44.9 Chronic obstructive pulmonary disease, unspecified; E66.9 Obesity, unspecified; Z68.32 Body mass index [BMI] 32.0-32.9, adult; Z20.822 Contact with and (suspected) exposure to COVID-19; Z79.899 Other long term (current) drug therapy
CPT/HCPCS: 0241U; 36415; 36600; 71045; 80053; 82803; 83605; 83735; 83880; 84100; 84484; 85025; 85610; 85730; 86140; 87040; 87077; 93005; 94660; 96365; 96366; 96368; 96375; 99284; 99285-25; J0456; J0696; J1940; J2270; J3490; J7050; J7620-GY